=== PATIENT | male | born 1945 | race Hispanic/Latino ===

== ENCOUNTER 2018-08-22 16:41 | Emergency (ER) | payer MEDICARE, OTHER ==
[2018-08-22 16:49] VITALS: TEMP 98.1; O2SAT 99
[2018-08-22] MEDS ORDERED: Tdap Vaccine 0.5 ml Vial (10-64 yrs) IM ONE (17:20)
--- NOTE | 2018-08-22 17:52 | CT ---
Date of service: 08/22/2018 PROCEDURE: CT HEAD WITHOUT CONTRAST. HISTORY: trauma COMPARISON: None available. TECHNIQUE: Axial computed tomography images were obtained through the head/brain without intravenous contrast. Radiation dose: Total exam DLP = 840.81 mGy-cm. This CT exam was performed using one or more of the following dose reduction techniques: Automated exposure control, adjustment of the mA and/or kV according to patient size, and/or use of iterative reconstruction technique. FINDINGS: HEMORRHAGE: No intracranial hemorrhage. BRAIN: No mass effect or edema. There is ujva-ay-ruddyjru white matter changes likely represent chronic microvascular ischemic disease. VENTRICLES: Unremarkable. No hydrocephalus. CALVARIUM: Unremarkable. PARANASAL SINUSES: Mucosal thickening in the anterior aspect of left maxillary sinus is noted. Mucosal thickening of the left ethmoid sinuses is also noted. MASTOID AIR CELLS: Unremarkable as visualized. No inflammatory changes. OTHER FINDINGS: None. IMPRESSION: No evidence of acute intracranial hemorrhage intracranial collection territorial infarct mass effect or midline shift.
--- NOTE | 2018-08-22 18:15 | ED PDOC ---
HPI: Trauma/Fall - HPI Chief Complaint (Provider): Trauma History Per: Patient History/Exam Limitations: no limitations Onset/Duration Of Symptoms: Hrs Additional Complaint(s): Jeremiah Garcia is a 73 year old male with a past medical history of hypertension, COPD, and asthma who is presenting to the ED for evaluation of head injury onset around noon today. Patient states that he was walking outside in a park and tripped over a metal bar, falling to the left side and injuring the left side of his face. He reports that he did not lose consciousness and was able to get up on his own and walk back home. Patient admits that he did not think he needed medical attention until he looked in the mirror and noticed bruising. He denies any loss of consciousness, vomiting, chest pain, shortness of breath, abdominal pain, and extremity pain. PMD: Fei Matos <Jose Rafael Zacarias - Last Filed: 08/22/18 19:43> <Court Wyatt - Last Filed: 08/23/18 15:22> - HPI Time Seen by Provider: 08/22/18 16:59 Chief Complaint (Nursing): Trauma Past Medical History Reviewed: Historical Data, Nursing Documentation, Vital Signs Vital Signs: Last Vital Signs Temp 98.1 F 08/22/18 16:45 Pulse 115 H 08/22/18 16:45 Resp 18 08/22/18 16:45 BP 163/72 H 08/22/18 16:45 Pulse Ox 99 08/22/18 16:45 - Medical History PMH: Asthma, COPD, HTN - Surgical History Surgical History: No Surg Hx - Family History Family History: States: Unknown Family Hx - Social History Current smoker - smoking cessation education provided: No Alcohol: None Drugs: Denies <Jose Rafael Zacarias - Last Filed: 08/22/18 19:43> Vital Signs: Last Vital Signs Temp 98.1 F 08/22/18 16:45 Pulse 62 08/22/18 20:15 Resp 16 08/22/18 20:15 BP 131/59 L 08/22/18 20:15 Pulse Ox 99 08/22/18 20:15 <Court Wyatt - Last Filed: 08/23/18 15:22> - Home Medications Home Medications: Ambulatory Orders Medication Instructions Recorded Amoxicillin/Clavulanate [Augmentin 1 tab PO BID #20 tab 08/22/18 500 MG-125 MG] Sodium Chloride [Saline Nasal Mist] 2 - 4 spray NS Q1 PRN #1 bottle 08/22/18 - Allergies Allergies/Adverse Reactions: Allergies Allergy/AdvReac Type Severity Reaction Status Date / Time No Known Allergies Allergy Verified 08/22/18 16:45 Review of Systems ROS Statement: Except As Marked, All Systems Reviewed And Found Negative Constitutional: Positive for: Other (facial bruising ) Cardiovascular: Negative for: Chest Pain Respiratory: Negative for: Shortness of Breath Gastrointestinal: Negative for: Nausea, Vomiting, Abdominal Pain Musculoskeletal: Negative for: Other (extremity pain) <Jose Rafael Zacarias - Last Filed: 08/22/18 19:43> Physical Exam - Reviewed Nursing Documentation Reviewed: Yes Vital Signs Reviewed: Yes - Physical Exam Appears: Positive for: Non-toxic, No Acute Distress Head Exam: Positive for: NORMAL INSPECTION, NORMOCEPHALIC Skin: Positive for: Warm, Dry Eye Exam: Positive for: EOMI (including upward gaze), PERRL, Periorbital swelling (LEFT: moderate), Periorbital tenderness (LEFT: ecchymosis), Other (Superficial abrasion to left upper eyelid and eyebrow, No hyphema; no lacerat ions noted to face) ENT: Positive for: TM Is/Are (no hemotympanum b/l), Other (tenderness and swelling to nasal bridge; no septal hematoma b/l). Negative for: Pharyngeal Erythema, Tonsillar Exudate, Tonsillar Swelling Neck: Positive for: Painless ROM (ecchymosis to anterior neck, no tenderness), Supple Cardiovascular/Chest: Positive for: Regular Rate, Rhythm, Chest Non Tender. Negative for: Murmur Respiratory: Positive for: Normal Breath Sounds. Negative for: Respiratory Distress Pulses-Radial (L): 2+ Pulses-Radial (R): 2+ Gastrointestinal/Abdominal: Positive for: Normal Exam, Soft. Negative for: Tenderness, Other (ecchymosis to abdomen ) Back: Positive for: Normal Inspection. Negative for: L CVA Tenderness, R CVA Tenderness, Vertebral Tenderness (including C-Spine) Extremity: Positive for: Capillary Refill (< 2 seconds), Other (L elbow with mild tenderness and ecchymosis; R wrist with mild tenderness without swelling or deformity; no break in skin integrity; FROM actively of R wrist and L elbow but with pain) Neurologic/Psych: Positive for: Alert, Oriented (x3), Gait (steady). Negative for: Motor/Sensory Deficits, Aphasia <Jose Rafael Zacarias - Last Filed: 08/22/18 19:43> - Laboratory Results Result Diagrams: 08/22/18 18:00 08/22/18 18:00 - ECG O2 Sat by Pulse Oximetry: 99 (RA) Pulse Ox Interpretation: Normal - Radiology X-Ray: Interpreted by Me (R wrist, L elbow x-ray) X-Ray Interpretation: No Acute Disease - Progress ED Course And Treament: CT head w/o contrast: negative CT maxillofacial w/o contrast: comminuted displaced fx involving both nasal bones; diffuse facial swelling, b/l ethmoid, maxillary, and frontal sinusitis CT soft tissue neck including c-spine w/o contrast: severe multilevel degenerative spondylosis without acute osseous abnormality 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 Wyatt who recommends Augmentin and nasal spray. Pt. informed of results and advised to f/u with Dr. Dillard ENT for further evaluation. Also instructed to apply bacitracin ointment to wounds on face BID. Wound care instructions given. <Jose Rafael Zacarias E - Last Filed: 08/22/18 19:43> - Laboratory Results Result Diagrams: 08/22/18 18:00 08/22/18 18:00 <Court Wyatt - Last Filed: 08/23/18 15:22> Medical Decision Making Medical Decision Making: Time: 17:16 Impression: Head Injury Plan: --Blood Type and Screen --CT Head --CT Maxillofacial --CT Neck --CMP --CBC --Coags --Chest X-Ray --Adacel 0.5 ml IM --Wounds cleansed and irrigated then bacitracin ointment applied to abrasions on face Scribe Attestation: Documented by, Alison Cartagena acting as a scribe for Jose Rafael Zacarias PA-C. Provider Scribe Attestation: All medical record entries made by the Scribe were at my direction and personally dictated by me. I have reviewed the chart and agree that the record accurately reflects my personal performance of the history, physical exam, medical decision making, and the department course for this patient. I have also personally directed, reviewed, and agree with the discharge instructions and disposition. <Jose Rafael Zacarias - Last Filed: 08/22/18 19:43> Disposition - Patient ED Disposition Is Patient to be Admitted: No - Disposition Disposition: Routine/Home Disposition Time: 19:47 <Jose Rafael Zacarias - Last Filed: 08/22/18 19:43> <Court Wyatt - Last Filed: 08/23/18 15:22> - Clinical Impression Clinical Impression: Nasal fracture, Wrist injury, Elbow injury, Multiple abrasions - Disposition Referrals: Jersey Dillard MD [Staff Provider] - Fei Matos MD [Staff Provider] - Condition: STABLE Additional Instructions: FOLLOW UP WITH ENT FOR FURTHER EVALUATION RETURN TO ED IMMEDIATELY IF SYMPTOMS WORSEN JEREMIAH GARCIA, thank you for letting us take care of you today. Your provider was Court Wyatt MD and you were treated for HEAD INJURY. The emergency medical care you received today was directed at your acute symptoms. If you were prescribed any medication, please fill it and take as directed. It may take several days for your symptoms to resolve. Return to the Emergency Department if your symptoms worsen, do not improve, or if you have any other problems. Please contact your doctor or call one of the physicians/clinics you have been referred to that are listed on the Patient Visit Information form that is included in your discharge packet. Bring any paperwork you were given at discharge with you along with any medications you are taking to your follow up visit. Our treatment cannot replace ongoing medical care by a primary care provider outside of the emergency department. Thank you for allowing the [facility] team to be part of your care today. If you had an X-Ray or CT scan: A Radiologist will review the ED reading if any change in treatment is needed we will contact you. If you had a blood, urine, or wound culture: It will take several days for the results, if any change in treatment is needed we will contact you. If you had an STI test: It will take 48 hours for the results. Please call after 1 week if you have not heard back. Prescriptions: Amoxicillin/Clavulanate [Augmentin 500 MG-125 MG] 1 tab PO BID #20 tab Sodium Chloride [Saline Nasal Mist] 2 - 4 spray NS Q1 PRN #1 bottle PRN Reason: Nasal Congestion Instructions: Wrist Sprain (DC), Nose Fracture (DC), Elbow Sprain (DC) Forms: [employer] (Chinese) Print Language: HEBREW Addendum Addendum: 08/23/18 15:22 Reviewed chart and agree with PA assessment and plan. <Court Wyatt - Last Filed: 08/23/18 15:22>
[2018-08-22 18:16] LABS: BASO # 0.1 K/uL (0.0-0.2); EOS # 0.1 K/uL (0.0-0.7); EOS % 0.8 % (0.0-4.0); HEMOGLOBIN 13.4 g/dL (12.0-18.0); LYMPH % 9.4 % (20.0-40.0); MEAN CELL VOLUME 97.4 fl (80.0-94.0); MEAN CORPUSCULAR HEMOGLOBIN 33.2 pg (27.0-31.0); MEAN CORPUSCULAR HGB CONC 34.1 g/dL (33.0-37.0); MEAN PLATELET VOLUME 7.7 fl (7.2-11.7); MONO # 0.7 K/uL (0.0-0.8); MONO % 6.7 % (0.0-10.0); NEUT # 8.9 K/uL (1.8-7.0); NEUT % 82.1 % (50.0-75.0); NRBC % 0.1 % (0.0-0.0); PLATELET COUNT 177 K/uL (130-400); RBC 4.04 Mil/uL (4.40-5.90); RED CELL DISTRIBUTION WIDTH 12.9 % (11.5-14.5); WHITE BLOOD COUNT 10.8 K/uL (4.8-10.8)
[2018-08-22 18:21] LABS: PROTHROMBIN TIME 11.3 Seconds (9.8-13.1)
[2018-08-22 18:23] LABS: PARTIAL THROMBOPLASTIN TIME 33.3 Seconds (25.6-37.1)
[2018-08-22 18:25] LABS: ALB/GLOB RATIO 1.3 (1.0-2.1); ALBUMIN 4.4 g/dL (3.5-5.0); ALT/SGPT 40 U/L (21-72); AST/SGOT 41 U/L (17-59); BLOOD UREA NITROGEN 15 mg/dl (9-20); CALCIUM 9.8 mg/dL (8.4-10.2); GFR NON-AFRICAN AMERICAN > 60
[2018-08-22 19:08] LABS: EOSINOPHIL 3 % (0-7); LYMPHOCYTE 5 % (20-50); MONOCYTE 8 % (0-10); NEUTROPHIL 84 % (42-75); PLATELET ESTIMATE NORMAL (NORMAL); TOTAL CELLS COUNTED 100
[2018-08-22] MEDS ORDERED: Bacitracin OINT 15GM TOP STA (19:49)
[2018-08-22 20:58] VITALS: BP 131/59; PULSE 62; RESP 16
--- NOTE | 2018-08-23 12:40 | CT ---
Date of service: 08/22/2018 PROCEDURE: CT MAXILLOFACIAL BONES WITHOUT CONTRAST HISTORY: trauma COMPARISON: No prior similar study available for comparison TECHNIQUE: Contiguous axial CT images of the maxillofacial bones were obtained. Coronal and sagittal reformats were generated. Radiation dose: Total exam DLP = 1032.27 1032.3 mGy-cm. This CT exam was performed using one or more of the following dose reduction techniques: Automated exposure control, adjustment of the mA and/or kV according to patient size, and/or use of iterative reconstruction technique. FINDINGS: NASAL BONES: There are mildly displaced nasal bone fractures including slightly displaced fracture at the nasal process of the left maxillary bone. ORBITS: There is age indeterminate displaced left orbital floor fracture may represent acute fracture. There is a adjacent swelling and displacement of the left orbital inferior rectal muscle. There is also adjacent the mucosal thickening and possible small hematoma. Mild fat stranding noted in the left retrobulbar lower region without evidence of discrete hematoma. The right orbit is unremarkable. Fxsu-na-gkzhlrgv left periorbital soft tissue swelling. PARANASAL SINUSES/ MASTOIDS: Left maxillary mucosal thickening and mucosal retention cysts noted. Ethmoidal mucosal thickening is also noted. MAXILLA: There are multiple lucency seen in the maxillary bone likely represent periodontal lucency or abscesses. No evidence of acute displaced fractures. MANDIBLE/ TEMPOROMANDIBULAR JOINTS: No evidence of acute displaced fractures SKULL BASE: Unremarkable. TEMPORAL BONES: Middle ears and mastoid grossly unremarkable. OTHER FINDINGS: None. IMPRESSION: Bilateral mildly displaced nasal bone fractures. Age indeterminate could be acute or subacute displaced fracture of the left orbital floor. Left orbital inferior rectal muscle swelling and adjacent fat stranding and mucosal thickening in the anterior aspect of the left maxillary sinus. Please correlate clinically. [id number] left periorbital soft tissue posttraumatic changes. Fkpu-pg-jmxvinwg sinuses mucosal thickening. Preliminary report with concordance findings was submitted by [facility] at 7 p.m. on 08/22/2018
--- NOTE | 2018-08-23 14:14 | CT ---
Date of service: 08/22/2018 PROCEDURE: CT NECK WITHOUT CONTRAST HISTORY: trauma COMPARISON: None available. TECHNIQUE: CT of the neck without intravenous contrast. Coronal and sagittal reformats generated. Radiation dose: DLP 291.9 mGy-cm This CT exam was performed using one or more of the following dose reduction techniques: Automated exposure control, adjustment of the mA and/or kV according to patient size, and/or use of iterative reconstruction technique. FINDINGS: NASOPHARYNX: No evidence of mass or fluid collection SUPRAHYOID NECK: No evidence of mass or fluid collection in the oropharynx, oral cavity, parapharyngeal space and retropharyngeal space. INFRAHYOID NECK: Unremarkable larynx, hypopharynx, and supraglottic space. Vocal cords intact. MASS: None. GLANDS: Parotid and submandibular glands unremarkable. Normal size thyroid gland, without nodule. LYMPH NODES: Normal. No lymphadenopathy. CERVICAL SPINE: There are moderate to mildly severe degenerative changes in the cervical spine. Mildly displaced fracture in the left orbital floor. Mildly displaced fractures in the nasal bone. OTHER FINDINGS: None. IMPRESSION: No evidence of hematoma or fluid collection in the neck. Moderate to mildly severe degenerative changes in the cervical spine without evidence of acute displaced fracture. Acute displaced fracture in the nasal bones and in the left orbital floor. Preliminary report contains concordance findings was submitted by [facility] at 7:02 p.m. on 08/22/2018.
--- NOTE | 2018-08-23 16:14 | RAD ---
Date of service: 08/22/2018 HISTORY: fall COMPARISON: Comparison is made with 12/01/2009 FINDINGS: LUNGS: No evidence of new infiltrate or consolidation in the lungs. PLEURA: No significant pleural effusion identified, no pneumothorax apparent. CARDIOVASCULAR: Normal. OSSEOUS STRUCTURES: No significant abnormalities. VISUALIZED UPPER ABDOMEN: Normal. OTHER FINDINGS: None. IMPRESSION: No active disease.
--- NOTE | 2018-08-23 16:18 | RAD ---
Date of service: 08/22/2018 PROCEDURE: Right Wrist Radiographs. HISTORY: trauma COMPARISON: None. FINDINGS: BONES: No evidence of acute displaced fracture. JOINTS: Moderate osteoarthritic degenerative changes noted.. No dislocation. SOFT TISSUES: Mild diffuse soft tissue swelling. OTHER FINDINGS: None. IMPRESSION: No definite evidence of acute fracture or dislocation. If clinically warranted further assessment by CT may be obtained.
--- NOTE | 2018-08-23 16:22 | RAD ---
Date of service: 08/22/2018 PROCEDURE: Radiographs of the left elbow. HISTORY: trauma COMPARISON: No prior. FINDINGS: BONES: Suspicious for left radial head fracture. JOINTS: Mild osteoarthritic changes. SOFT TISSUES: Normal. JOINT EFFUSION: There is hcyq-jf-curwgoab joint effusion. OTHER FINDINGS: None IMPRESSION: Suspicious for acute left radial head fracture associated with joint effusion. If clinically warranted further assessment by CT may be obtained.
== END 2018-08-22 20:15 | disposition home or self-care (01) ==
LOC: H.ER 16:41
DX: S02.2XXA Fracture of nasal bones, initial encounter for closed fracture (principal); S00.81XA Abrasion of other part of head, initial encounter; S69.90XA Unspecified injury of unspecified wrist, hand and finger(s), initial encounter; I10 Essential (primary) hypertension; J44.9 Chronic obstructive pulmonary disease, unspecified; J45.909 Unspecified asthma, uncomplicated; Z79.899 Other long term (current) drug therapy; W01.0XXA Fall on same level from slipping, tripping and stumbling without subsequent striking against object, initial encounter; Y93.01 Activity, walking, marching and hiking; Z23 Encounter for immunization

== ENCOUNTER 2019-02-15 11:31 | Inpatient (IN) | payer MEDICARE, OTHER ==
--- NOTE | 2019-02-15 12:48 | RAD ---
Date of service: 02/15/2019 PROCEDURE: CHEST RADIOGRAPH, 1 VIEW HISTORY: Cough COMPARISON: 08/22/2018. FINDINGS: LUNGS: The lungs are well inflated. There is confluent airspace disease in the right lower lobe and patchy airspace disease in the left lung. PLEURA: No pneumothorax or pleural effusion. CARDIOVASCULAR: The heart is normal in size. There are aortic atherosclerotic calcifications present. OSSEOUS STRUCTURES: Within normal limits for the patient's age. VISUALIZED UPPER ABDOMEN: Normal. OTHER FINDINGS: None. IMPRESSION: Findings are concerning for multifocal pneumonia, worse in the right lower lobe. Follow-up after medical management is recommended to ensure complete resolution. The final report is tagged to the PA review folder.
[2019-02-15] MEDS ORDERED: Albuterol-Ipratrop 3 mg / 0.5 (3 ml) UD INH STA (12:53)
--- NOTE | 2019-02-15 12:56 | ED PDOC ---
HPI: SOB/CHF/COPD Time Seen by Provider: 02/15/19 11:48 Chief Complaint (Nursing): Shortness Of Breath Chief Complaint (Provider): Shortness Of Breath History Per: Patient History/Exam Limitations: no limitations Onset/Duration Of Symptoms: Days (x 6) Current Symptoms Are (Timing): Still Present Associated Symptoms: Productive Cough (green sputum). denies: Fever, Chest Pain Additional Complaint(s): 73 year old male with a history of HTN and COPD (not on O2 at home) presents to the ED for evaluation of a productive cough with green sputum for 6 days. Patient reports using Mucinex at home with no relief of symptoms. He denies fever and chest pain. PMD: Dr. Matos Past Medical History Reviewed: Historical Data, Nursing Documentation, Vital Signs Vital Signs: Last Vital Signs Temp 98.9 F 02/15/19 11:43 Pulse 103 H 02/15/19 11:43 Resp 18 02/15/19 11:43 BP 144/58 L 02/15/19 11:43 Pulse Ox 100 02/15/19 11:43 - Medical History PMH: Asthma, COPD, HTN - Surgical History Surgical History: No Surg Hx - Family History Family History: States: Unknown Family Hx - Social History Ex-Smoker (has not smoked in the last 12 months): Yes Alcohol: None - Home Medications Home Medications: Ambulatory Orders Medication Instructions Recorded Amoxicillin/Clavulanate [Augmentin 1 tab PO BID #20 tab 08/22/18 500 MG-125 MG] Sodium Chloride [Saline Nasal Mist] 2 - 4 spray NS Q1 PRN #1 bottle 08/22/18 - Allergies Allergies/Adverse Reactions: Allergies Allergy/AdvReac Type Severity Reaction Status Date / Time No Known Allergies Allergy Verified 08/22/18 16:45 Review of Systems ROS Statement: Except As Marked, All Systems Reviewed And Found Negative Constitutional: Negative for: Fever, Chills Cardiovascular: Negative for: Chest Pain Physical Exam - Reviewed Nursing Documentation Reviewed: Yes Vital Signs Reviewed: Yes - Physical Exam Appears: Positive for: No Acute Distress (speaking full sentences) Head Exam: Positive for: ATRAUMATIC, NORMAL INSPECTION, NORMOCEPHALIC Skin: Positive for: Normal Color, Warm, Dry Eye Exam: Positive for: EOMI, Normal appearance, PERRL Neck: Positive for: Normal, Painless ROM Cardiovascular/Chest: Positive for: Regular Rate, Rhythm. Negative for: Murmur Respiratory: Positive for: Decreased Breath Sounds Gastrointestinal/Abdominal: Positive for: Normal Exam, Soft. Negative for: Tenderness Back: Positive for: Normal Inspection. Negative for: L CVA Tenderness, R CVA Tenderness Extremity: Positive for: Normal ROM (x 4). Negative for: Deformity Neurological/Psych: Positive for: Awake, Alert, Normal Tone, Oriented (x 3). Negative for: Motor/Sensory Deficits - Laboratory Results Result Diagrams: 02/15/19 13:15 02/15/19 13:15 - ECG O2 Sat by Pulse Oximetry: 85 (4L) Pulse Ox Interpretation: Abnormal - Critical Care Total Time (In Min): 45 Documented Critical Care: Time excludes all time spent performint seperately billable procedures Medical Decision Making Medical Decision Makin:10 Impression: dsypnea and cough Initial Plan: --VBG --EKG --CMP --PTT --PT --CXR --Duoneb 3 ml INH --Solu-medrol 125 mg IVP --Blood cx --Peak flow pre/post --Influenza AB --UA Patient is 85% on 4 liters of oxygen. Vapotherm ordered. Accession No. : [id number] Patient Name / ID : RADHA DANIELS / [id number] Exam Date : 02/15/2019 11:57:43 ( Approved ) Study Comment : Sex / Age : M / 73Y Creator : Dictator : Ellie Whitten MD Buggyman : Business Team Leader : Ellie Whitten MD Approver2 : Report Date : My Comment : * Date of service: 02/15/2019 PROCEDURE: CHEST RADIOGRAPH, 1 VIEW HISTORY: Cough COMPARISON: 08/22/2018. FINDINGS: LUNGS: The lungs are well inflated. There is confluent airspace disease in the right lower lobe and patchy airspace disease in the left lung. PLEURA: No pneumothorax or pleural effusion. CARDIOVASCULAR: The heart is normal in size. There are aortic atherosclerotic calcifications present. OSSEOUS STRUCTURES: Within normal limits for the patient's age. VISUALIZED UPPER ABDOMEN: Normal. OTHER FINDINGS: None. IMPRESSION: Findings are concerning for multifocal pneumonia, worse in the right lower lobe. Follow-up after medical management is recommended to ensure complete resolution. 13:[address] Matos, admit to Hospitalist. Case discussed with Dr. Leon. - Scribe Attestation: Documented by Honey Melissa, acting as a scribe for Maddie Morris MD Provider Scribe Attestation: All medical record entries made by the Scribe were at my direction and personal ly dictated by me. I have reviewed the chart and agree that the record accurately reflects my personal performance of the history, physical exam, medical decision making, and the department course for this patient. I have also personally directed, reviewed, and agree with the discharge instructions and disposition Disposition - Clinical Impression Clinical Impression: Multifocal pneumonia, Sepsis, COPD (chronic obstructive pulmonary disease) - Disposition Disposition Time: 14:00 Condition: STABLE Forms: [employer] (Mongolian) - Pt Status Changed To: Hospital Disposition Of: Inpatient - Admit Certification Admit to Inpatient:: After my assessment, the patient will require hospitalization for at least two midnights. This is because of the severity of symptoms shown, intensity of services needed, and/or the medical risk in this patient being treated as an outpatient. - POA Present On Arrival: None
[2019-02-15] MEDS ORDERED: Azithromycin 500 MG in Sodium Chloride 0.9% 250 ML IV STA (13:23)
[2019-02-15] MEDS ORDERED: Albuterol-Ipratrop 3 mg / 0.5 (3 ml) UD ONE (13:25)
[2019-02-15 13:26] LABS: BASO # 0.1 K/uL (0.0-0.2); BASO % 0.3 % (0.0-2.0); HEMOGLOBIN 12.7 g/dL (12.0-18.0); PLATELET COUNT 322 K/uL (130-400); WHITE BLOOD COUNT 18.3 K/uL (4.8-10.8)
[2019-02-15] MEDS ORDERED: Azithromycin 500 MG IV IVPB ONE (13:32)
[2019-02-15 13:33] LABS: VENOUS BLOOD GAS BASE EXCESS 11.4 mmol/L (0.0-2.0); VENOUS BLOOD GAS PCO2 59 mmHg (40-60); VENOUS BLOOD GAS PO2 23 mm/Hg (30-55); VENOUS BLOOD PH 7.42 (7.32-7.43)
[2019-02-15 13:37] LABS: LYMPH % 5.4 % (20.0-40.0); MEAN CELL VOLUME 97.4 fl (80.0-94.0); MEAN CORPUSCULAR HEMOGLOBIN 32.9 pg (27.0-31.0); MEAN CORPUSCULAR HGB CONC 33.8 g/dL (33.0-37.0); MEAN PLATELET VOLUME 8.6 fl (7.2-11.7); MONO % 5.6 % (0.0-10.0); NEUT # 16.2 K/uL (1.8-7.0); NEUT % 88.7 % (50.0-75.0); NRBC % 0.1 % (0.0-0.0); RBC 3.86 Mil/uL (4.40-5.90); RED CELL DISTRIBUTION WIDTH 13.4 % (11.5-14.5)
[2019-02-15 13:38] LABS: ALBUMIN 3.9 g/dL (3.5-5.0); ALT/SGPT 57 U/L (21-72); AST/SGOT 58 U/L (17-59); BLOOD UREA NITROGEN 32 mg/dl (9-20); CALCIUM 9.5 mg/dL (8.4-10.2); GFR NON-AFRICAN AMERICAN > 60
--- NOTE | 2019-02-15 14:32 | CP.PCM.HP ---
<Mattie Chen - Last Filed: 02/15/19 16:47> History of Present Illness - History of Present Illness History of Present Illness: 73 y/o M with medhx of COPD & HTN presented to the ED complaining of increased sputum production x 7 days. Patient endorses producing a cup full of sputum honorio y, greenish in color. He tried mucinex which did not alleviate his symptoms. He reports sob has not increased above his baseline. He denied any f/c/cp, increased sob, hemoptysis, recent travel or sick contacts. PMD: Dr. 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 Famhx: denies SOchx; x-smoker (last use, 15 years ago ED course: P-103, BP-144/58, RR-26, spo2-86 on 4L of oxyg via NC, pt switched to High flow with FIo2 of 60% -wbc- unremarkable CXR- multifocal pneumona, worse in right lower lobe; Present on Admission - Present on Admission Any Indicators Present on Admission: No Past Patient History - Past Social History Alcohol: None - CARDIAC Hx Hypertension: Yes - PULMONARY Hx Asthma: Yes Hx Chronic Obstructive Pulmonary Disease (COPD): Yes - PSYCHIATRIC Hx Substance Use: No Meds Allergies/Adverse Reactions: Allergies Allergy/AdvReac Type Severity Reaction Status Date / Time No Known Allergies Allergy Verified 08/22/18 16:45 Physical Exam - Head Exam Head Exam: ATRAUMATIC - Eye Exam Eye Exam: EOMI - ENT Exam ENT Exam: Mucous Membranes Moist - Respiratory Exam Respiratory Exam: Decreased Breath Sounds Additional comments: patient on high flow with FIO2 of 60%; decreased breath sounds b/l with right lower crackle - Cardiovascular Exam Cardiovascular Exam: REGULAR RHYTHM, +S1, +S2 - GI/Abdominal Exam GI & Abdominal Exam: Normal Bowel Sounds, Soft. absent: Guarding, Rigid, Tenderness - Extremities Exam Extremities exam: Negative for: calf tenderness - Neurological Exam Neurological exam: Alert, Oriented x3 - Psychiatric Exam Psychiatric exam: Normal Mood - Skin Skin Exam: Dry, Intact Results - Vital Signs Recent Vital Signs: Last Vital Signs Temp 98.9 F 02/15/19 11:43 Pulse 103 H 02/15/19 11:43 Resp 20 02/15/19 13:29 BP 144/58 L 02/15/19 11:43 Pulse Ox 85 L 02/15/19 14:32 - Labs Result Diagrams: 02/15/19 13:15 02/15/19 13:15 Labs: Laboratory Results - last 24 hr 02/15/19 02/15/19 02/15/19 12:06 13:15 13:15 WBC 18.3 H D RBC 3.86 L Hgb 12.7 Hct 37.6 MCV 97.4 H MCH 32.9 H MCHC 33.8 RDW 13.4 Plt Count 322 D MPV 8.6 Neut % (Auto) 88.7 H Lymph % (Auto) 5.4 L Roberts % (Auto) 5.6 Eos % (Auto) 0.0 Baso % (Auto) 0.3 Neut # (Auto) 16.2 H Lymph # (Auto) 1.0 Roberts # (Auto) 1.0 H Eos # (Auto) 0.0 Baso # (Auto) 0.1 pO2 VBG pH VBG pCO2 VBG HCO3 VBG Total CO2 VBG O2 Sat (Calc) VBG Base Excess VBG Potassium Glucose Lactate FiO2 Sodium 137 Potassium 3.4 L Chloride 93 L Carbon Dioxide 32 H Anion Gap 15 BUN 32 H Creatinine 1.0 Est GFR ( Amer) > 60 Est GFR (Non-Af Amer) > 60 POC Glucose (mg/dL) 218 H Random Glucose 174 H Calcium 9.5 Total Bilirubin 1.1 AST 58 ALT 57 Alkaline Phosphatase 153 H D Total Protein 7.7 Albumin 3.9 Globulin 3.7 Albumin/Globulin Ratio 1.0 Venous Blood Potassium Influenza Typ A,B (EIA) 02/15/19 02/15/19 13:15 13:25 WBC RBC Hgb Hct MCV MCH MCHC RDW Plt Count MPV Neut % (Auto) Lymph % (Auto) Roberts % (Auto) Eos % (Auto) Baso % (Auto) Neut # (Auto) Lymph # (Auto) Roberts # (Auto) Eos # (Auto) Baso # (Auto) pO2 23 L VBG pH 7.42 VBG pCO2 59 VBG HCO3 32.3 VBG Total CO2 40.1 H VBG O2 Sat (Calc) 40.3 VBG Base Excess 11.4 H VBG Potassium 3.4 L Glucose 176 H Lactate 1.8 FiO2 21.0 Sodium 139.0 Potassium Chloride 98.0 Carbon Dioxide Anion Gap BUN Creatinine Est GFR ( Amer) Est GFR (Non-Af Amer) POC Glucose (mg/dL) Random Glucose Calcium Total Bilirubin AST ALT Alkaline Phosphatase Total Protein Albumin Globulin Albumin/Globulin Ratio Venous Blood Potassium 3.4 L Influenza Typ A,B (EIA) Negative for flu a/b Assessment & Plan - Assessment and Plan (Free Text) Assessment: 73 y/o M with medhx of COPD & HTN presented to the ED complaining of increased sputum production x 7 days, admitted for further management of multifocal pneunomina. Multifocal pneumonia s/p Stat dose of rocephin & azithro -C/w vanco & zosyn ( to start this evening) -monitor saturation & RR -FU vanco trough -FU blood cultures COPD (acute on chronic) -Dr. Matos consulted; FU recommendations -s/p STAT duoneb -C/w duoneb 3ml INH Q4 prn -C/w home meds HTN (chronic) -C/w home meds zestril & HCTZ DVT prophlaxis -Lovenox 40mg SC <Zaki Leon D - Last Filed: 02/15/19 17:11> Results - Vital Signs Recent Vital Signs: Last Vital Signs Temp 98.9 F 02/15/19 11:43 Pulse 103 H 02/15/19 11:43 Resp 20 02/15/19 13:29 BP 144/58 L 02/15/19 11:43 Pulse Ox 85 L 02/15/19 14:36 - Labs Result Diagrams: 02/15/19 13:15 02/15/19 13:15 Labs: Laboratory Results - last 24 hr 02/15/19 02/15/19 02/15/19 12:06 13:15 13:15 WBC 18.3 H D RBC 3.86 L Hgb 12.7 Hct 37.6 MCV 97.4 H MCH 32.9 H MCHC 33.8 RDW 13.4 Plt Count 322 D MPV 8.6 Neut % (Auto) 88.7 H Lymph % (Auto) 5.4 L Roberts % (Auto) 5.6 Eos % (Auto) 0.0 Baso % (Auto) 0.3 Neut # (Auto) 16.2 H Lymph # (Auto) 1.0 Roberts # (Auto) 1.0 H Eos # (Auto) 0.0 Baso # (Auto) 0.1 Neutrophils % (Manual) 85 H Band Neutrophils % 3 H Lymphocytes % (Manual) 6 L Monocytes % (Manual) 4 Eosinophils % (Manual) 2 Platelet Estimate Normal RBC Morphology Normal PT INR APTT pO2 VBG pH VBG pCO2 VBG HCO3 VBG Total CO2 VBG O2 Sat (Calc) VBG Base Excess VBG Potassium Glucose Lactate FiO2 Sodium 137 Potassium 3.4 L Chloride 93 L Carbon Dioxide 32 H Anion Gap 15 BUN 32 H Creatinine 1.0 Est GFR ( Amer) > 60 Est GFR (Non-Af Amer) > 60 POC Glucose (mg/dL) 218 H Random Glucose 174 H Calcium 9.5 Total Bilirubin 1.1 AST 58 ALT 57 Alkaline Phosphatase 153 H D Total Protein 7.7 Albumin 3.9 Globulin 3.7 Albumin/Globulin Ratio 1.0 Venous Blood Potassium Influenza Typ A,B (EIA) 02/15/19 02/15/19 02/15/19 13:15 13:25 13:45 WBC RBC Hgb Hct MCV MCH MCHC RDW Plt Count MPV Neut % (Auto) Lymph % (Auto) Roberts % (Auto) Eos % (Auto) Baso % (Auto) Neut # (Auto) Lymph # (Auto) Roberts # (Auto) Eos # (Auto) Baso # (Auto) Neutrophils % (Manual) Band Neutrophils % Lymphocytes % (Manual) Monocytes % (Manual) Eosinophils % (Manual) Platelet Estimate RBC Morphology PT 14.7 H INR 1.3 APTT 27.3 pO2 23 L VBG pH 7.42 VBG pCO2 59 VBG HCO3 32.3 VBG Total CO2 40.1 H VBG O2 Sat (Calc) 40.3 VBG Base Excess 11.4 H VBG Potassium 3.4 L Glucose 176 H Lactate 1.8 FiO2 21.0 Sodium 139.0 Potassium Chloride 98.0 Carbon Dioxide Anion Gap BUN Creatinine Est GFR ( Amer) Est GFR (Non-Af Amer) POC Glucose (mg/dL) Random Glucose Calcium Total Bilirubin AST ALT Alkaline Phosphatase Total Protein Albumin Globulin Albumin/Globulin Ratio Venous Blood Potassium 3.4 L Influenza Typ A,B (EIA) Negative for flu a/b Attending/Attestation - Attestation I have personally seen and examined this patient.: Yes I have fully participated in the care of the patient.: Yes I have reviewed all pertinent clinical information: Yes Notes (Text): 02/15/19 17:11 Patient seen and examined with resident. Case discussed and agreed with assessment and plan of management.
[2019-02-15 14:40] LABS: INR 1.3; PROTHROMBIN TIME 14.7 Seconds (9.8-13.1)
[2019-02-15 14:43] LABS: PARTIAL THROMBOPLASTIN TIME 27.3 Seconds (25.6-37.1)
[2019-02-15] MEDS ORDERED: Albuterol-Ipratrop 3 mg / 0.5 (3 ml) UD INH PRN (14:52)
--- NOTE | 2019-02-15 15:04 | CARD ---
APPROVED REPORT Date of service: 02/15/2019 EKG Measurement Heart [id number] <Conclusion> Normal sinus rhythm Inferior infarct, age undetermined Abnormal ECG
[2019-02-15] MEDS ORDERED: cefTRIAXone (Rocephin) 1 gm Inj ONE (15:32)
[2019-02-15 16:01] LABS: BANDS 3 % (0-2); EOSINOPHIL 2 % (0-7); LYMPHOCYTE 6 % (20-50); MONOCYTE 4 % (0-10); NEUTROPHIL 85 % (42-75); TOTAL CELLS COUNTED 100
[2019-02-15 16:02] LABS: PLATELET ESTIMATE NORMAL (NORMAL)
[2019-02-15] MEDS: Piperacillin/Tazobact 3.375 GM in Sodium Chloride 0.9% 100 ML IVPB SCH ×2 (16:59→23:15)
[2019-02-15] MEDS ORDERED: Potassium Chloride 20 mEq ER Tab PO ONE ×2 (17:56→19:31)
[2019-02-15 20:40] LABS: URINE BACTERIA FEW (<OCC); URINE BILIRUBIN NEGATIVE (NEGATIVE); URINE BLOOD NEGATIVE (NEGATIVE); URINE CLARITY CLEAR (Clear); URINE COLOR YELLOW (YELLOW); URINE GLUCOSE (UA) >=500 mg/dL (NEGATIVE); URINE LEUKOCYTE ESTERASE NEG Leu/uL (Negative); URINE PROTEIN NEGATIVE (NEGATIVE); URINE UROBILINOGEN 0.2-1.0 mg/dL (0.2-1.0)
[2019-02-15] MEDS ORDERED: FLUTICASONE PROPION IH SCH (21:00)
[2019-02-15] MEDS ORDERED: SALMETEROL IH SCH (21:00)
[2019-02-16] MEDS: Piperacillin/Tazobact 3.375 GM in Sodium Chloride 0.9% 100 ML IVPB SCH ×4 (03:36→22:31)
--- NOTE | 2019-02-16 07:45 | CP.PCM.PN ---
<Mattie Chen - Last Filed: 02/16/19 13:00> Subjective - Date & Time of Evaluation Date of Evaluation: 02/16/19 Time of Evaluation: 09:46 - Subjective Subjective: Patient was seen and examined this morning. Patient continues to be on high flower FIO2 60%, saturating at 90%. Patient was sitting upright in chair, breathing comfortably and able to talk in full sentences. Patient reports still coughing up some mucus, but states amount has decreased. Denies f/c/n/v/diarrhea/cp or sob. Objective - Vital Signs/Intake and Output Vital Signs (last 24 hours): Temp Pulse Resp BP Pulse Ox 98.7 F 86 18 109/50 L 90 L 02/16/19 07:40 02/16/19 07:40 02/16/19 07:40 02/16/19 07:40 02/16/19 07:40 - Medications Medications: Current Medications Albuterol/Ipratropium (Duoneb 3 Mg/0.5 Mg (3 Ml) Ud) 3 ml INH RQ4 PRN PRN Reason: Shortness of Breath Albuterol/Ipratropium (Duoneb 3 Mg/0.5 Mg (3 Ml) Ud) 3 ml INH RQID [facility] Diltiazem HCl (Cardizem Cd) 180 mg PO DAILY [facility] Docusate Sodium (Colace) 100 mg PO BID PRN PRN Reason: Constipation Enoxaparin Sodium (Lovenox) 40 mg SC DAILY [facility]; Protocol Fluticasone Propionate (Flonase) 2 spr [place] DAILY [facility] Hydrochlorothiazide (Microzide) 12.5 mg PO DAILY [facility] Vancomycin HCl 1 gm/ Sodium (Chloride) 250 mls @ 166.667 mls/hr IVPB Q12 [facility]; Protocol Last Admin: 02/15/19 23:16 Dose: 166.667 mls/hr Piperacillin Sod/Tazobactam (Sod 3.375 gm/ Sodium Chloride) 100 mls @ 100 mls/hr IVPB Q6 [facility]; Protocol Last Admin: 02/16/19 03:36 Dose: 100 mls/hr Lisinopril (Zestril) 20 mg PO DAILY [facility] Multivitamins/Minerals (Therapeutic-M Tab) 1 tab PO DAILY [facility] Pantoprazole Sodium (Protonix Ec Tab) 40 mg PO DAILY [facility] Tiotropium [place] (Spiriva) 18 mcg IH DAILY [facility] - Labs Labs: 02/15/19 13:15 02/15/19 13:15 PT 14.7 Seconds (9.8-13.1) H 02/15/19 13:45 INR 1.3 02/15/19 13:45 APTT 27.3 Seconds (25.6-37.1) 02/15/19 13:45 - Constitutional Appears: Non-toxic - Head Exam Head Exam: ATRAUMATIC - Eye Exam Eye Exam: EOMI - ENT Exam ENT Exam: Mucous Membranes Dry - Respiratory Exam Respiratory Exam: Rhonchi. absent: Respiratory Distress Additional comments: scattered rhonchi, no wheeze - Cardiovascular Exam Cardiovascular Exam: REGULAR RHYTHM, +S1, +S2 - GI/Abdominal Exam GI & Abdominal Exam: Soft, Normal Bowel Sounds. absent: Guarding, Rigid, Tenderness - Extremities Exam Extremities Exam: absent: Calf Tenderness - Neurological Exam Neurological Exam: Alert, Awake, Oriented x3 - Psychiatric Exam Psychiatric exam: Normal Mood - Skin Skin Exam: Dry, Intact Assessment and Plan - Assessment and Plan (Free Text) Assessment: 73 y/o M with medhx of COPD & HTN presented to the ED complaining of increased sputum production x 7 days, admitted for further management of severe sepsis due to multifocal pneunomina. Sepsis (criteria met on admission) -103 bpm, RR max- 26 BP_ 144/58 WBC- 18.3 lactate- 1.8 -source: CXR showed multifocal pneumonia s/p Stat dose of rocephin & azithro in ED -C/w vanco & zosyn ( to start this evening) -monitor saturation & RR -FU vanco trough -Awaiting blood cultures Acute hypoxic respiratory failure (likely due to multifocal pneumonia in setting of COPD -C/w high flow oxygen with FIo2 of 60% -FU abg on room air -FU legionella, mycoplasma, and strep pneumonia antigen -Dr. Matos consulted; FU recommendations COPD exacerbation (acute on chronic) -s/p STAT duoneb -C/w duoneb 3ml INH QID -C/w spiriva 18mcg IH QD HTN (chronic) -C/w home meds zestril -Hold HCTZ DVT prophylaxis -Lovenox 40mg SC <Leon,Zaki D - Last Filed: 02/16/19 14:35> Objective - Vital Signs/Intake and Output Vital Signs (last 24 hours): Temp Pulse Resp BP Pulse Ox 97.6 F 84 18 127/65 91 L 02/16/19 12:00 02/16/19 12:00 02/16/19 12:00 02/16/19 12:00 02/16/19 12:00 - Medications Medications: Current Medications Albuterol Sulfate (Albuterol 0.083% Inhal Svitlana (2.5 Mg/3 Ml) Ud) 2.5 mg INH RQ4 PRN PRN Reason: Shortness of Breath Albuterol/Ipratropium (Duoneb 3 Mg/0.5 Mg (3 Ml) Ud) 3 ml INH RQID [facility]NA Diltiazem HCl (Cardizem Cd) 180 mg PO DAILY [facility] Last Admin: 02/16/19 10:34 Dose: 180 mg Docusate Sodium (Colace) 100 mg PO BID PRN PRN Reason: Constipation Enoxaparin Sodium (Lovenox) 40 mg SC DAILY [facility]; Protocol Last Admin: 02/16/19 10:32 Dose: 40 mg Fluticasone Propionate (Flonase) 2 spr [place] DAILY [facility] Last Admin: 02/16/19 08:15 Dose: 2 spr Hydrochlorothiazide (Microzide) 12.5 mg PO DAILY [facility] Last Admin: 02/16/19 10:32 Dose: 12.5 mg Vancomycin HCl 1 gm/ Sodium (Chloride) 250 mls @ 166.667 mls/hr IVPB Q12 [facility]; Protocol Last Admin: 02/16/19 14:19 Dose: 166.667 mls/hr Piperacillin Sod/Tazobactam (Sod 3.375 gm/ Sodium Chloride) 100 mls @ 100 mls/hr IVPB Q6 [facility]; Protocol Last Admin: 02/16/19 10:33 Dose: 100 mls/hr Lisinopril (Zestril) 20 mg PO DAILY [facility] Last Admin: 02/16/19 10:34 Dose: 20 mg Multivitamins/Minerals (Therapeutic-M Tab) 1 tab PO DAILY [facility] Last Admin: 02/16/19 10:33 Dose: 1 tab Pantoprazole Sodium (Protonix Ec Tab) 40 mg PO DAILY [facility] Last Admin: 02/16/19 10:34 Dose: 40 mg Tiotropium [place] (Spiriva) 18 mcg IH DAILY [facility] Last Admin: 02/16/19 14:21 Dose: 18 mcg - Labs Labs: 02/16/19 08:25 02/16/19 08:25 PT 14.7 Seconds (9.8-13.1) H 02/15/19 13:45 INR 1.3 02/15/19 13:45 APTT 27.3 Seconds (25.6-37.1) 02/15/19 13:45 Attending/Attestation - Attestation I have personally seen and examined this patient.: Yes I have fully participated in the care of the patient.: Yes I have reviewed all pertinent clinical information, including history, physical exam and plan: Yes Notes (Text): 02/16/19 14:34 Patient seen and examined with resident. Case discussed and agreed with as sessment and plan
[2019-02-16 08:14] LABS: ABG ALLEN TEST YES; ARTERIAL BLOOD GAS HCO3 34.1 mmol/L (21-28); ARTERIAL BLOOD GAS HEMOGLOBIN 12.6 g/dL (11.7-17.4); ARTERIAL BLOOD GAS O2 CONTENT 16.3 ML/dL (15-23); ARTERIAL BLOOD GAS O2 SAT 95.7 % (95-98); ARTERIAL BLOOD GAS PCO2 53 mm/Hg (35-45); ARTERIAL BLOOD GAS PH 7.46 (7.35-7.45); ARTERIAL BLOOD GAS PO2 64 mm/Hg (80-100); ARTERIAL BLOOD GAS TCO2 39.3 mmol/L (22-28)
[2019-02-16] MEDS ORDERED: Albuterol 0.083% Inhal Sol (2.5 mg/3 mL) UD INH PRN (09:27)
[2019-02-16 09:29] LABS: BLOOD UREA NITROGEN 29 mg/dl (9-20); CALCIUM 8.8 mg/dL (8.4-10.2); GFR NON-AFRICAN AMERICAN > 60
[2019-02-16 09:30] LABS: HEMOGLOBIN 12.2 g/dL (12.0-18.0); LYMPH % 3.3 % (20.0-40.0); MEAN CELL VOLUME 98.7 fl (80.0-94.0); MEAN CORPUSCULAR HEMOGLOBIN 32.4 pg (27.0-31.0); MEAN CORPUSCULAR HGB CONC 32.8 g/dL (33.0-37.0); MEAN PLATELET VOLUME 8.8 fl (7.2-11.7); MONO # 0.7 K/uL (0.0-0.8); MONO % 2.6 % (0.0-10.0); NEUT # 27.1 K/uL (1.8-7.0); NEUT % 94.1 % (50.0-75.0); PLATELET COUNT 343 K/uL (130-400); RBC 3.77 Mil/uL (4.40-5.90); RED CELL DISTRIBUTION WIDTH 13.3 % (11.5-14.5); WHITE BLOOD COUNT 28.8 K/uL (4.8-10.8)
--- NOTE | 2019-02-16 09:34 | CP.PCM.CON ---
History of Present Illness - History of Present Illness History of Present Illness: This 73 year old former cigarette smoker camr to the emergency room with a 6-7 days history of increased cough with copious grenn colored sputum production. He denied chest pain or hemoptysis and was unaware of fever. He did have chills at home. He had been taking all his regulr medications as directed without improvement. His sleep was disrupted by coughing. In the emergency room he was found to be hypoxemic requiring supplemental oxygen. His chest x-ray also suggested bilateral multifocal infiltrates with leukocytosis of 18.3, tachycardia, tachypnea but normotensive. Review of Systems - Review of Systems All systems: reviewed and no additional remarkable complaints except - Constitutional Constitutional: Chills, Fatigue - Respiratory Respiratory: Cough, Chest Congestion, Excessive Mucous Production, Change in Mucous Color Past Patient History - Past Medical History & Family History Past Family History: Reviewed and not pertinent - Past Social History Smoking Status: Former Smoker Chewing Tobacco Use: No Cigar Use: No Alcohol: Social Drugs: Denies Home Situation {Lives}: Alone - CARDIAC Hx Hypertension: Yes - PULMONARY Hx Bronchitis: Yes Hx Chronic Obstructive Pulmonary Disease (COPD): Yes Hx Pneumonia: Yes - NEUROLOGICAL Hx Neurological Disorder: No - HEENT Other/Comment: multiple dental caries - RENAL Hx Chronic Kidney Disease: No - ENDOCRINE/METABOLIC Hx Endocrine Disorders: No - HEMATOLOGICAL/ONCOLOGICAL Hx Blood Disorders: No - INTEGUMENTARY Hx Dermatological Problems: No - MUSCULOSKELETAL/RHEUMATOLOGICAL Hx Falls: Yes - GASTROINTESTINAL Hx Gastrointestinal Disorders: No - GENITOURINARY/GYNECOLOGICAL Hx Prostate Problems: Yes (LUTS) - PSYCHIATRIC Hx Psychophysiologic Disorder: No - SURGICAL HISTORY Hx Surgeries: No - ANESTHESIA Hx Anesthesia: No Meds Home Medications: Home Medication List Medication Instructions Recorded Confirmed Type Albuterol 0.083% [Albuterol 0.083% 2.5 mg INH RQ4 PRN neb 02/19/19 Rx Inhal Svitlana (2.5 mg/3 ml) UD] Albuterol/Ipratropium [Duoneb 3 3 ml INH RQID neb 02/19/19 Rx mg/0.5 mg (3 ml) UD] Docusate [Colace] 100 mg PO BID PRN cap 02/19/19 Rx Enoxaparin [Lovenox] 40 mg SC DAILY syr 02/19/19 Rx Fluticasone Propionate [Flonase] 2 spr BENJAMIN DAILY bottle 02/19/19 Rx Pantoprazole [Protonix EC Tab] 40 mg PO DAILY ect 02/19/19 Rx Piperacillin/Tazobact 3.375 gm 0 gm IV Q6 7 Days bag 02/19/19 Rx [Zosyn 3.375 in NS 100ml] Sodium Chloride for Inhalation 4 ml IH ONCE PRN vial.neb 02/19/19 Rx [Sodium Chloride 3% for Inhalation] Vancomycin/0.9 % Sod Chloride 1 gm IV BID 7 Days #14 plast..bag 02/19/19 Rx [Vanco 1 Gram/250 ml-0.9% NaCl] diltiaZEM CD [Cardizem CD] 240 mg PO DAILY cap 02/19/19 Rx methylPREDNISolone [Medrol] 12 mg PO DAILY tab 02/19/19 Rx Allergies/Adverse Reactions: Allergies Allergy/AdvReac Type Severity Reaction Status Date / Time No Known Allergies Allergy Verified 02/19/19 14:05 - Medications Medications: Current Medications Albuterol Sulfate (Albuterol 0.083% Inhal Svitlana (2.5 Mg/3 Ml) Ud) 2.5 mg INH RQ4 PRN PRN Reason: Shortness of Breath Albuterol/Ipratropium (Duoneb 3 Mg/0.5 Mg (3 Ml) Ud) 3 ml INH RQID [facility] Diltiazem HCl (Cardizem Cd) 180 mg PO DAILY [facility] Docusate Sodium (Colace) 100 mg PO BID PRN PRN Reason: Constipation Enoxaparin Sodium (Lovenox) 40 mg SC DAILY [facility]; Protocol Fluticasone Propionate (Flonase) 2 spr BENJAMIN DAILY [facility] Last Admin: 02/16/19 08:15 Dose: 2 spr Hydrochlorothiazide (Microzide) 12.5 mg PO DAILY [facility] Vancomycin HCl 1 gm/ Sodium (Chloride) 250 mls @ 166.667 mls/hr IVPB Q12 [facility]; Protocol Last Admin: 02/15/19 23:16 Dose: 166.667 mls/hr Piperacillin Sod/Tazobactam (Sod 3.375 gm/ Sodium Chloride) 100 mls @ 100 mls/hr IVPB Q6 [facility]; Protocol Last Admin: 02/16/19 03:36 Dose: 100 mls/hr Lisinopril (Zestril) 20 mg PO DAILY [facility] Multivitamins/Minerals (Therapeutic-M Tab) 1 tab PO DAILY [facility] Pantoprazole Sodium (Protonix Ec Tab) 40 mg PO DAILY [facility] Tiotropium [place] (Spiriva) 18 mcg IH DAILY [facility] Physical Exam - Additional Findings Additional findings: Poor dental hygiene with multiple caries and has been a chronic problem and is still present. Pharynx is mildly injected without exudate. Mucous membranes are moist. Nares are patent bilaterally without bleeding or exudate. Neck is supple and trachea is midline without any neck vein distention or carotid bruits. No palpable lymphadenopathy. No dependent edema or cyanosis. No calf tenderness or palpable venous cords. No ecchymosis, rash or jaundice. No dullness on chest percussion. Equal expansion. Breath sounds are diminished bilaterally without any wheezes. No bronchial breath sounds. Sonorous rhonchi are heard in the lower lobes bilaterally with scattered medium rales. Heart sounds are distant and regular without murmur. Abdomen is soft and nontender with normal bowel sounds and no palpable HSM or CVA tenderness. Results - Vital Signs Recent Vital Signs: Last Vital Signs Temp 98.7 F 02/16/19 07:40 Pulse 86 02/16/19 07:40 Resp 18 02/16/19 07:40 BP 109/50 L 02/16/19 07:40 Pulse Ox 90 L 02/16/19 07:40 - Labs Result Diagrams: 02/19/19 04:25 02/19/19 04:25 Labs: Laboratory Results - last 24 hr 02/15/19 02/15/19 02/15/19 12:06 13:15 13:15 WBC 18.3 H D RBC 3.86 L Hgb 12.7 Hct 37.6 MCV 97.4 H MCH 32.9 H MCHC 33.8 RDW 13.4 Plt Count 322 D MPV 8.6 Neut % (Auto) 88.7 H Lymph % (Auto) 5.4 L Cooper % (Auto) 5.6 Eos % (Auto) 0.0 Baso % (Auto) 0.3 Neut # (Auto) 16.2 H Lymph # (Auto) 1.0 Cooper # (Auto) 1.0 H Eos # (Auto) 0.0 Baso # (Auto) 0.1 Neutrophils % (Manual) 85 H Band Neutrophils % 3 H Lymphocytes % (Manual) 6 L Monocytes % (Manual) 4 Eosinophils % (Manual) 2 Platelet Estimate Normal RBC Morphology Normal PT INR APTT pCO2 pO2 HCO3 ABG pH ABG Total CO2 ABG O2 Saturation ABG O2 Content ABG Base Excess ABG Hemoglobin ABG Carboxyhemoglobin POC ABG HHb (Measured) ABG Methemoglobin ABG O2 Capacity Jonathan Test VBG pH VBG pCO2 VBG HCO3 VBG Total CO2 VBG O2 Sat (Calc) VBG Base Excess VBG Potassium A-a O2 Difference Hgb O2 Saturation Glucose Lactate Liter Flow Vent Mode FiO2 Sodium 137 Potassium 3.4 L Chloride 93 L Carbon Dioxide 32 H Anion Gap 15 BUN 32 H Creatinine 1.0 Est GFR ( Amer) > 60 Est GFR (Non-Af Amer) > 60 POC Glucose (mg/dL) 218 H Random Glucose 174 H Calcium 9.5 Total Bilirubin 1.1 AST 58 ALT 57 Alkaline Phosphatase 153 H D Total Protein 7.7 Albumin 3.9 Globulin 3.7 Albumin/Globulin Ratio 1.0 Venous Blood Potassium Urine Color Urine Clarity Urine pH Ur Specific [place] Urine Protein Urine Glucose (UA) Urine Ketones Urine Blood Urine Nitrate Urine Bilirubin Urine Urobilinogen Ur Leukocyte Esterase Urine RBC (Auto) Urine Microscopic WBC Urine Bacteria Influenza Typ A,B (EIA) 02/15/19 02/15/19 02/15/19 13:15 13:25 13:45 WBC RBC Hgb Hct MCV MCH MCHC RDW Plt Count MPV Neut % (Auto) Lymph % (Auto) Cooper % (Auto) Eos % (Auto) Baso % (Auto) Neut # (Auto) Lymph # (Auto) Cooper # (Auto) Eos # (Auto) Baso # (Auto) Neutrophils % (Manual) Band Neutrophils % Lymphocytes % (Manual) Monocytes % (Manual) Eosinophils % (Manual) Platelet Estimate RBC Morphology PT 14.7 H INR 1.3 APTT 27.3 pCO2 pO2 23 L HCO3 ABG pH ABG Total CO2 ABG O2 Saturation ABG O2 Content ABG Base Excess ABG Hemoglobin ABG Carboxyhemoglobin POC ABG HHb (Measured) ABG Methemoglobin ABG O2 Capacity Jonathan Test VBG pH 7.42 VBG pCO2 59 VBG HCO3 32.3 VBG Total CO2 40.1 H VBG O2 Sat (Calc) 40.3 VBG Base Excess 11.4 H VBG Potassium 3.4 L A-a O2 Difference Hgb O2 Saturation Glucose 176 H Lactate 1.8 Liter Flow Vent Mode FiO2 21.0 Sodium 139.0 Potassium Chloride 98.0 Carbon Dioxide Anion Gap BUN Creatinine Est GFR ( Amer) Est GFR (Non-Af Amer) POC Glucose (mg/dL) Random Glucose Calcium Total Bilirubin AST ALT Alkaline Phosphatase Total Protein Albumin Globulin Albumin/Globulin Ratio Venous Blood Potassium 3.4 L Urine Color Urine Clarity Urine pH Ur Specific [place] Urine Protein Urine Glucose (UA) Urine Ketones Urine Blood Urine Nitrate Urine Bilirubin Urine Urobilinogen Ur Leukocyte Esterase Urine RBC (Auto) Urine Microscopic WBC Urine Bacteria Influenza Typ A,B (EIA) Negative for flu a/b 02/15/19 02/15/19 02/16/19 19:40 22:06 05:23 WBC RBC Hgb Hct MCV MCH MCHC RDW Plt Count MPV Neut % (Auto) Lymph % (Auto) Cooper % (Auto) Eos % (Auto) Baso % (Auto) Neut # (Auto) Lymph # (Auto) Cooper # (Auto) Eos # (Auto) Baso # (Auto) Neutrophils % (Manual) Band Neutrophils % Lymphocytes % (Manual) Monocytes % (Manual) Eosinophils % (Manual) Platelet Estimate RBC Morphology PT INR APTT pCO2 pO2 HCO3 ABG pH ABG Total CO2 ABG O2 Saturation ABG O2 Content ABG Base Excess ABG Hemoglobin ABG Carboxyhemoglobin POC ABG HHb (Measured) ABG Methemoglobin ABG O2 Capacity Jonathan Test VBG pH VBG pCO2 VBG HCO3 VBG Total CO2 VBG O2 Sat (Calc) VBG Base Excess VBG Potassium A-a O2 Difference Hgb O2 Saturation Glucose Lactate Liter Flow Vent Mode FiO2 Sodium Potassium Chloride Carbon Dioxide Anion Gap BUN Creatinine Est GFR ( Amer) Est GFR (Non-Af Amer) POC Glucose (mg/dL) 262 H 234 H Random Glucose Calcium Total Bilirubin AST ALT Alkaline Phosphatase Total Protein Albumin Globulin Albumin/Globulin Ratio Venous Blood Potassium Urine Color Yellow Urine Clarity Clear Urine pH 5.0 Ur Specific [place] 1.041 H Urine Protein Negative Urine Glucose (UA) >=500 Urine Ketones Trace Urine Blood Negative Urine Nitrate Negative Urine Bilirubin Negative Urine Urobilinogen 0.2-1.0 Ur Leukocyte Esterase Neg Urine RBC (Auto) 3 Urine Microscopic WBC < 1 Urine Bacteria Few H Influenza Typ A,B (EIA) 02/16/19 02/16/19 07:40 08:25 WBC RBC Hgb Hct MCV MCH MCHC RDW Plt Count MPV Neut % (Auto) Lymph % (Auto) Cooper % (Auto) Eos % (Auto) Baso % (Auto) Neut # (Auto) Lymph # (Auto) Cooper # (Auto) Eos # (Auto) Baso # (Auto) Neutrophils % (Manual) Band Neutrophils % Lymphocytes % (Manual) Monocytes % (Manual) Eosinophils % (Manual) Platelet Estimate RBC Morphology PT INR APTT pCO2 53 H pO2 64 L HCO3 34.1 H ABG pH 7.46 H ABG Total CO2 39.3 H ABG O2 Saturation 95.7 ABG O2 Content 16.3 ABG Base Excess 11.9 H ABG Hemoglobin 12.6 ABG Carboxyhemoglobin 1.9 H POC ABG HHb (Measured) 4.1 ABG Methemoglobin 1.8 ABG O2 Capacity 17.0 Jonathan Test Yes VBG pH VBG pCO2 VBG HCO3 VBG Total CO2 VBG O2 Sat (Calc) VBG Base Excess VBG Potassium A-a O2 Difference 298.0 Hgb O2 Saturation 92.2 L Glucose Lactate Liter Flow 15 Vent Mode Hfnc FiO2 60.0 Sodium 139 Potassium 3.5 L Chloride 97 L Carbon Dioxide 35 H Anion Gap 11 BUN 29 H Creatinine 0.8 Est GFR ( Amer) > 60 Est GFR (Non-Af Amer) > 60 POC Glucose (mg/dL) Random Glucose 200 H Calcium 8.8 Total Bilirubin AST ALT Alkaline Phosphatase Total Protein Albumin Globulin Albumin/Globulin Ratio Venous Blood Potassium Urine Color Urine Clarity Urine pH Ur Specific [place] Urine Protein Urine Glucose (UA) Urine Ketones Urine Blood Urine Nitrate Urine Bilirubin Urine Urobilinogen Ur Leukocyte Esterase Urine RBC (Auto) Urine Microscopic WBC Urine Bacteria Influenza Typ A,B (EIA) Assessment & Plan (1) Multifocal pneumonia Status: Acute Priority: High (2) Sepsis Status: Acute Priority: High (3) COPD (chronic obstructive pulmonary disease) Status: Chronic Priority: High - Assessment and Plan (Free Text) Plan: Agree with current antibiotic regimen. Continue aerosol therapy and oxygen supplementation with HFNC. CT chest will be requested because of diffuse infiltrates. - Date & Time Date: 02/16/19 Time: 09:34
[2019-02-16] MEDS: Enoxaparin 40 mg Syringe SC SCH (10:32)
[2019-02-16] MEDS: Multivitamin With Minerals Tab PO SCH (10:33)
[2019-02-16] MEDS: diltiaZEM 180 mg/24 Hours CD Cap PO SCH (10:34)
[2019-02-16] MEDS: Pantoprazole 40 mg EC Tab PO SCH (10:34)
[2019-02-16 13:26] LABS: ABG ALLEN TEST YES; ARTERIAL BLOOD GAS HCO3 33.1 mmol/L (21-28); ARTERIAL BLOOD GAS HEMOGLOBIN 13.5 g/dL (11.7-17.4); ARTERIAL BLOOD GAS O2 CAPACITY 18.3 mL/dL (16-24); ARTERIAL BLOOD GAS O2 CONTENT 15.9 ML/dL (15-23); ARTERIAL BLOOD GAS PCO2 43 mm/Hg (35-45); ARTERIAL BLOOD GAS PH 7.52 (7.35-7.45); ARTERIAL BLOOD GAS PO2 46 mm/Hg (80-100); ARTERIAL BLOOD GAS TCO2 36.4 mmol/L (22-28)
[2019-02-16] MEDS: Tiotropium 18 mcg Cap For Inhalation IH SCH (14:21)
[2019-02-16] MEDS: Albuterol-Ipratrop 3 mg / 0.5 (3 ml) UD INH SCH ×2 (15:20→19:06)
[2019-02-16 15:23] LABS: BANDS 2 % (0-2); LYMPHOCYTE 9 % (20-50); MONOCYTE 5 % (0-10); NEUTROPHIL 84 % (42-75); PLATELET ESTIMATE NORMAL (NORMAL); TOTAL CELLS COUNTED 100
--- NOTE | 2019-02-16 16:06 | PQF ---
CAP- suspected cause: bacterial infection PROVIDER RESPONSE TEXT: Provider was unable to determine a response for this query. REVIEWER QUERY TEXT: Pneumonia Specificity Pneumonia is documented in the Medical Record. Please specify the type of pneumonia and the causative organism (includes probable or suspected) if known: i.e -- Aspiration pneumonia (please also specify the aspirate) - Please indicate if the aspiration is postprocedure -- Bacterial (please document suspected or probable organism) -- Bronchopneumonia (please document suspected or probable organism) -- Interstitial pneumonia -- Organizing pneumonia / BOOP -- Pneumonia with influenza, oby flu, or H1N1 flu -- RSV -- Viral -- Other, please specify 02/16 Progress note includes: admitted for further management of severe sepsis due to multifocal pneunomina. -Acute hypoxic respiratory failure (likely due to multifocal pneumonia in setting of COPD -C/w high flow oxygen with FIo2 of 60% -FU abg on room air -FU legionella, mycoplasma, and strep pneumonia antigen -COPD exacerbation (acute on chronic) -s/p STAT duoneb -C/w duoneb 3ml INH QID - C/w spiriva 18mcg IH QD The patient's Clinical Indicators include: -- Query created by: Rossy Gregg on 02/16/2019 2:12 PM Electronically signed by: Mattie Chen 02/16/2019 4:04 PM MTDD
--- NOTE | 2019-02-16 16:06 | PQF ---
COPD exacerbation present on admission with increased sputum production mostly likely to finding of multifocal pneumonia; acute hypoxic respiratory failure present on admission PROVIDER RESPONSE TEXT: On admission the patient was saturating at 86% on 4 L of NC, which warrants diagnosis of acute hypoxic respiratory failure. Abg on room air done today showed po2 of 46. Patient also has a dx of multifocal pneumonia REVIEWER QUERY TEXT: Present On Admission It is unclear whether a diagnosis was present on admission. Your help is needed. Please clarify the POA status of the following diagnosis codes: Acute hypoxic respiratory failure and COPD Exacerbation listed in the 02/16 progress note. Such as: -- Present on admission -- Not present on admission ER: PE: Appears: Positive for: No Acute Distress (speaking full sentences) Respiratory: Positive for: Decreased Breath Sounds Initial Plan includes:--Duoneb 3 ml INH --Solu-medrol 125 mg IVP Patient is 85% on 4 liters of oxygen.Vapotherm ordered Clinical Impression: Multifocal pneumonia, Sepsis, COPD (chronic obstructive pulmonary disease) The patient's Clinical Indicators include: -- Query created by: Rossy Gregg on 02/16/2019 2:06 PM Electronically signed by: Mattie Chen 02/16/2019 4:04 PM [facility]
[2019-02-16] MEDS ORDERED: SALMETEROL IH SCH (20:00)
[2019-02-16] MEDS ORDERED: FLUTICASONE PROPION IH SCH (20:00)
[2019-02-17] MEDS: Piperacillin/Tazobact 3.375 GM in Sodium Chloride 0.9% 100 ML IVPB SCH ×4 (03:57→21:54)
[2019-02-17 06:14] LABS: BASO # 0.1 K/uL (0.0-0.2); BASO % 0.2 % (0.0-2.0); MEAN CELL VOLUME 98.2 fl (80.0-94.0); MEAN CORPUSCULAR HEMOGLOBIN 32.4 pg (27.0-31.0); MEAN PLATELET VOLUME 9.1 fl (7.2-11.7); MONO # 0.5 K/uL (0.0-0.8); MONO % 1.6 % (0.0-10.0); NEUT # 30.7 K/uL (1.8-7.0); NEUT % 95.2 % (50.0-75.0); RBC 3.7 Mil/uL (4.40-5.90); RED CELL DISTRIBUTION WIDTH 13.2 % (11.5-14.5)
[2019-02-17 06:23] LABS: WHITE BLOOD COUNT 32.2 K/uL (4.8-10.8)
[2019-02-17 06:31] LABS: BLOOD UREA NITROGEN 44 mg/dl (9-20); CALCIUM 8.7 mg/dL (8.4-10.2); GFR NON-AFRICAN AMERICAN > 60
[2019-02-17] MEDS ORDERED: Sodium Chloride 3% for Inhalation 4 ML VIAL.NEB IH PRN (07:35)
[2019-02-17] MEDS: Albuterol-Ipratrop 3 mg / 0.5 (3 ml) UD INH SCH ×4 (07:41→19:07)
--- NOTE | 2019-02-17 07:44 | CP.PCM.PN ---
<Mattie Chen - Last Filed: 02/17/19 11:14> Subjective - Date & Time of Evaluation Date of Evaluation: 02/17/19 Time of Evaluation: 09:26 - Subjective Subjective: Patient was seen and examined this morning. Pt on high flow with FI02 of 60%, saturating at 90-93% this morning. Pt reports still having cough with less sputum production. He denies any f/c/cp or increased sob. Objective - Vital Signs/Intake and Output Vital Signs (last 24 hours): Temp Pulse Resp BP Pulse Ox 97.6 F 75 18 136/55 L 93 L 02/17/19 05:00 02/17/19 05:00 02/17/19 05:00 02/17/19 05:00 02/17/19 05:00 - Medications Medications: Current Medications Albuterol Sulfate (Albuterol 0.083% Inhal Svitlana (2.5 Mg/3 Ml) Ud) 2.5 mg INH RQ4 PRN PRN Reason: Shortness of Breath Albuterol/Ipratropium (Duoneb 3 Mg/0.5 Mg (3 Ml) Ud) 3 ml INH RQID [facility] Last Admin: 02/17/19 07:41 Dose: 3 ml Diltiazem HCl (Cardizem Cd) 180 mg PO DAILY [facility] Last Admin: 02/16/19 10:34 Dose: 180 mg Docusate Sodium (Colace) 100 mg PO BID PRN PRN Reason: Constipation Enoxaparin Sodium (Lovenox) 40 mg SC DAILY [facility]; Protocol Last Admin: 02/16/19 10:32 Dose: 40 mg Fluticasone Propionate (Flonase) 2 spr BENJAMIN DAILY [facility] Last Admin: 02/16/19 08:15 Dose: 2 spr Hydrochlorothiazide (Microzide) 12.5 mg PO DAILY [facility] Last Admin: 02/16/19 10:32 Dose: 12.5 mg Vancomycin HCl 1 gm/ Sodium (Chloride) 250 mls @ 166.667 mls/hr IVPB Q12 [facility]; Protocol Last Admin: 02/16/19 20:59 Dose: 166.667 mls/hr Piperacillin Sod/Tazobactam (Sod 3.375 gm/ Sodium Chloride) 100 mls @ 100 mls/hr IVPB Q6 [facility]; Protocol Last Admin: 02/17/19 03:57 Dose: 100 mls/hr Lisinopril (Zestril) 20 mg PO DAILY [facility] Last Admin: 02/16/19 10:34 Dose: 20 mg Methylprednisolone (Solu-Medrol) 60 mg IVP DAILY [facility] Multivitamins/Minerals (Therapeutic-M Tab) 1 tab PO DAILY [facility] Last Admin: 02/16/19 10:33 Dose: 1 tab Pantoprazole Sodium (Protonix Ec Tab) 40 mg PO DAILY [facility] Last Admin: 02/16/19 10:34 Dose: 40 mg Tiotropium [place] (Spiriva) 18 mcg IH DAILY [facility] Last Admin: 02/16/19 14:21 Dose: 18 mcg - Labs Labs: 02/17/19 04:25 02/17/19 04:25 PT 14.7 Seconds (9.8-13.1) H 02/15/19 13:45 INR 1.3 02/15/19 13:45 APTT 27.3 Seconds (25.6-37.1) 02/15/19 13:45 - Constitutional Appears: Non-toxic - Head Exam Head Exam: ATRAUMATIC - Eye Exam Eye Exam: EOMI - ENT Exam ENT Exam: Mucous Membranes Moist - Respiratory Exam Respiratory Exam: Decreased Breath Sounds Additional comments: scattered rhonchi - Cardiovascular Exam Cardiovascular Exam: REGULAR RHYTHM, +S1, +S2 - GI/Abdominal Exam GI & Abdominal Exam: Soft, Normal Bowel Sounds. absent: Guarding, Rigid, Tenderness - Extremities Exam Extremities Exam: absent: Calf Tenderness - Neurological Exam Neurological Exam: Alert, Awake, Oriented x3 - Psychiatric Exam Psychiatric exam: Normal Mood - Skin Skin Exam: Dry, Intact Assessment and Plan - Assessment and Plan (Free Text) Assessment: 73 y/o M with medhx of COPD & HTN presented to the ED complaining of increased sputum production x 7 days, admitted for further management of severe sepsis due to multifocal pneunomina. Sepsis (criteria met on admission) -103 bpm, RR max- 26 BP_ 144/58 WBC- 18.3 lactate- 1.8 -source: CXR showed multifocal pneumonia s/p Stat dose of rocephin & azithro in ED -C/w vanco & zosyn ( to start this evening) -monitor saturation & RR -FU vanco trough -Awaiting blood cultures Acute hypoxic respiratory failure (likely due to multifocal pneumonia in setting of COPD) -Room air abg: po2 of 46 -FU sputum culture Legionella & mycoplasma neg. -FU strep pneumo antigen -Will possibly decrease FIo2 of 40% -Dr. Matos recommendations appreciated COPD exacerbation (acute on chronic) -s/p STAT duoneb -C/w duoneb 3ml INH QID -C/w spiriva 18mcg IH QD -Salumedrol decrease to 40mg QD today HTN (chronic) -C/w home meds zestril -Hold HCTZ DVT prophylaxis -Lovenox 40mg SC <Macarena Phan - Last Filed: 02/17/19 14:42> Objective - Vital Signs/Intake and Output Vital Signs (last 24 hours): Temp Pulse Resp BP Pulse Ox 97.5 F L 81 18 142/62 93 L 02/17/19 13:00 02/17/19 13:00 02/17/19 13:00 02/17/19 13:00 02/17/19 13:00 - Medications Medications: Current Medications Albuterol Sulfate (Albuterol 0.083% Inhal Svitlana (2.5 Mg/3 Ml) Ud) 2.5 mg INH RQ4 PRN PRN Reason: Shortness of Breath Albuterol/Ipratropium (Duoneb 3 Mg/0.5 Mg (3 Ml) Ud) 3 ml INH RQID [facility] Last Admin: 02/17/19 11:18 Dose: 3 ml Diltiazem HCl (Cardizem Cd) 180 mg PO DAILY [facility] Last Admin: 02/17/19 09:21 Dose: 180 mg Docusate Sodium (Colace) 100 mg PO BID PRN PRN Reason: Constipation Enoxaparin Sodium (Lovenox) 40 mg SC DAILY [facility]; Protocol Last Admin: 02/17/19 09:22 Dose: 40 mg Fluticasone Propionate (Flonase) 2 spr BENJAMIN DAILY [facility] Last Admin: 02/17/19 09:23 Dose: 2 spr Hydrochlorothiazide (Microzide) 12.5 mg PO DAILY [facility] Last Admin: 02/16/19 10:32 Dose: 12.5 mg Vancomycin HCl 1 gm/ Sodium (Chloride) 250 mls @ 166.667 mls/hr IVPB Q12 [facility]; Protocol Last Admin: 02/17/19 09:25 Dose: 166.667 mls/hr Piperacillin Sod/Tazobactam (Sod 3.375 gm/ Sodium Chloride) 100 mls @ 100 mls/hr IVPB Q6 [facility]; Protocol Last Admin: 02/17/19 12:12 Dose: 100 mls/hr Lisinopril (Zestril) 20 mg PO DAILY [facility] Last Admin: 02/17/19 09:25 Dose: 20 mg Methylprednisolone (Solu-Medrol) 40 mg IVP DAILY [facility] Multivitamins/Minerals (Therapeutic-M Tab) 1 tab PO DAILY [facility] Last Admin: 02/17/19 09:24 Dose: 1 tab Pantoprazole Sodium (Protonix Ec Tab) 40 mg PO DAILY [facility] Last Admin: 02/17/19 09:25 Dose: 40 mg Tiotropium [place] (Spiriva) 18 mcg IH DAILY [facility] Last Admin: 02/17/19 09:24 Dose: 18 mcg - Labs Labs: 02/17/19 04:25 02/17/19 04:25 PT 14.7 Seconds (9.8-13.1) H 02/15/19 13:45 INR 1.3 02/15/19 13:45 APTT 27.3 Seconds (25.6-37.1) 02/15/19 13:45 Attending/Attestation - Attestation I have personally seen and examined this patient.: Yes I have fully participated in the care of the patient.: Yes I have reviewed all pertinent clinical information, including history, physical exam and plan: Yes Notes (Text): Sepsis sec to Pneumonia Acute Hypercapneic and Hypoxemic Respiratory Failure Acute COPD exacerbation HTN - Pt on High Flow Oxygen 25L/60% -cont IV Vanco and Zosyn - cont IV Solumedrol , decrease to 40mg daily -cont Duoneb , Spiriva -cont Lisinopril and Cardizem
[2019-02-17] MEDS: diltiaZEM 180 mg/24 Hours CD Cap PO SCH (09:21)
[2019-02-17] MEDS: Enoxaparin 40 mg Syringe SC SCH (09:22)
[2019-02-17] MEDS: Multivitamin With Minerals Tab PO SCH (09:24)
[2019-02-17] MEDS: Tiotropium 18 mcg Cap For Inhalation IH SCH (09:24)
[2019-02-17] MEDS: Pantoprazole 40 mg EC Tab PO SCH (09:25)
--- NOTE | 2019-02-17 10:18 | CP.PCM.PN ---
Subjective - Date & Time of Evaluation Date of Evaluation: 02/17/19 Time of Evaluation: 10:15 - Subjective Subjective: Seen on rounds in telemetry. Slept poorly last night (multiple reasons). Doesn't feel as good today as yesterday. Remains afebrile and VS are stable. On HFNC with 60% O2; SpO2 has been 90-97%. WBC is up to 32 this morning. Chemistries are okay except for glucose. Presently receiving solumedrol 60MG once daily. Mycoplasma and Legionella negative. Pharynx is pink and moist w/o exudate. Nares are patent bilaterally w/o bleeding or exudate. Neck is supple and trachea is midline. No dullness on chest percussion, increased AP diameter of thorax. Breath sounds are diminished bilaterally. Fixed sonorous rhonchi on the right. No audible wheezes or bronchial breath sounds. Scattered dry rales in LLs. Heart sounds are distant and regular. No dependant edema, no cyanosis, extremities are warm and pink. Pneumonia; atypical. Exacerbation of COPD secondary to the above. Excessive leukocytosis may be in part steroid related. Hyperglycemia is steroid related as well as infection induced. Fixed rhonchus on the right needs further investigation. Reduce steroid dose to 40MG daily. Continue accucheck coverage. Same antibiotics. Objective - Vital Signs/Intake and Output Vital Signs (last 24 hours): Temp Pulse Resp BP Pulse Ox 98.4 F 79 18 135/61 90 L 02/17/19 08:00 02/17/19 09:25 02/17/19 08:00 02/17/19 09:25 02/17/19 08:00 - Medications Medications: Current Medications Albuterol Sulfate (Albuterol 0.083% Inhal Svitlana (2.5 Mg/3 Ml) Ud) 2.5 mg INH RQ4 PRN PRN Reason: Shortness of Breath Albuterol/Ipratropium (Duoneb 3 Mg/0.5 Mg (3 Ml) Ud) 3 ml INH RQID [facility] Last Admin: 02/17/19 07:41 Dose: 3 ml Diltiazem HCl (Cardizem Cd) 180 mg PO DAILY [facility] Last Admin: 02/17/19 09:21 Dose: 180 mg Docusate Sodium (Colace) 100 mg PO BID PRN PRN Reason: Constipation Enoxaparin Sodium (Lovenox) 40 mg SC DAILY [facility]; Protocol Last Admin: 02/17/19 09:22 Dose: 40 mg Fluticasone Propionate (Flonase) 2 spr BENJAMIN DAILY [facility] Last Admin: 02/17/19 09:23 Dose: 2 spr Hydrochlorothiazide (Microzide) 12.5 mg PO DAILY [facility] Last Admin: 02/16/19 10:32 Dose: 12.5 mg Vancomycin HCl 1 gm/ Sodium (Chloride) 250 mls @ 166.667 mls/hr IVPB Q12 [facility]; Protocol Last Admin: 02/17/19 09:25 Dose: 166.667 mls/hr Piperacillin Sod/Tazobactam (Sod 3.375 gm/ Sodium Chloride) 100 mls @ 100 mls/hr IVPB Q6 [facility]; Protocol Last Admin: 02/17/19 03:57 Dose: 100 mls/hr Lisinopril (Zestril) 20 mg PO DAILY [facility] Last Admin: 02/17/19 09:25 Dose: 20 mg Methylprednisolone (Solu-Medrol) 60 mg IVP DAILY [facility] Last Admin: 02/17/19 09:24 Dose: 60 mg Multivitamins/Minerals (Therapeutic-M Tab) 1 tab PO DAILY [facility] Last Admin: 02/17/19 09:24 Dose: 1 tab Pantoprazole Sodium (Protonix Ec Tab) 40 mg PO DAILY [facility] Last Admin: 02/17/19 09:25 Dose: 40 mg Tiotropium [place] (Spiriva) 18 mcg IH DAILY [facility] Last Admin: 02/17/19 09:24 Dose: 18 mcg - Labs Labs: 02/17/19 04:25 02/17/19 04:25 PT 14.7 Seconds (9.8-13.1) H 02/15/19 13:45 INR 1.3 02/15/19 13:45 APTT 27.3 Seconds (25.6-37.1) 02/15/19 13:45 Assessment and Plan (1) Multifocal pneumonia Status: Acute (2) Sepsis Status: Acute (3) COPD exacerbation Status: Acute
--- NOTE | 2019-02-17 11:11 | PQF ---
PROVIDER RESPONSE TEXT: Unsure if Acute respiratory failure was present on admission bc vbg was done in ED and abg initially was done with FI02 of 60% REVIEWER QUERY TEXT: Present On Admission It is unclear whether a diagnosis was present on admission. Your help is needed. Please clarify the POA status of the following diagnosis codes: COPD Exacerbation listed in the 02/16 progress note. Such as: -- Present on admission -- Not present on admission ER: PE: Appears: Positive for: No Acute Distress (speaking full sentences) Respiratory: Positive for: Decreased Breath Sounds Initial Plan includes:--Duoneb 3 ml INH --Solu-medrol 125 mg IVP Patient is 85% on 4 liters of oxygen .Vapotherm ordered Clinical Impression: Multifocal pneumonia, Sepsis, COPD (chronic obstructive pulmonary disease) The patient's Clinical Indicators include: - Query created by: Rossy Gregg on 02/17/2019 7:48 AM Electronically signed by: Mattie Chen 02/17/2019 11:07 AM
--- NOTE | 2019-02-17 15:38 | CP.PCM.CON ---
History of Present Illness - History of Present Illness History of Present Illness: Palliative Care Consult requested by Dr. Phan Patient is a 73 year old male who came to the ED complaining of a productive cough with thick green sputum x6days. He states that he used mucinex w no relief of symptoms. CXR was taken and he was shown to have multifocal pneumonia. Patient states that last time he had pneumonia was 14 years ago. Patient is currently admitted for pneumonia. He is currently on high flow O2 and is receiving IV antibiotics. PMH: HTN,COPD Soc hx: former smoker, denies etoh or drug abuse fam hx: unknown 02/15/19 CXR: Multifocal Pneumonia 02/17/19 wbc: 32 Review of Systems - Review of Systems Review of Systems: obtained from the patient in bed - Cardiovascular Cardiovascular: Dyspnea - Respiratory Respiratory: Cough, Dyspnea Past Patient History - Past Social History Smoking Status: Former Smoker - CARDIAC Hx Cardiac Disorders: Yes Hx Hypertension: Yes - PULMONARY Hx Respiratory Disorders: Yes Hx Asthma: Yes Hx Chronic Obstructive Pulmonary Disease (COPD): Yes - NEUROLOGICAL Hx Neurological Disorder: No - HEENT Hx HEENT Problems: No - RENAL Hx Chronic Kidney Disease: No - ENDOCRINE/METABOLIC Hx Endocrine Disorders: No - HEMATOLOGICAL/ONCOLOGICAL Hx Blood Disorders: No - INTEGUMENTARY Hx Dermatological Problems: No - MUSCULOSKELETAL/RHEUMATOLOGICAL Hx Musculoskeletal Disorders: No Hx Falls: Yes - GASTROINTESTINAL Hx Gastrointestinal Disorders: No - GENITOURINARY/GYNECOLOGICAL Hx Genitourinary Disorders: No - PSYCHIATRIC Hx Psychophysiologic Disorder: No - SURGICAL HISTORY Hx Surgeries: No - ANESTHESIA Hx Anesthesia: No Meds Allergies/Adverse Reactions: Allergies Allergy/AdvReac Type Severity Reaction Status Date / Time No Known Allergies Allergy Verified 08/22/18 16:45 - Medications Medications: Current Medications Albuterol Sulfate (Albuterol 0.083% Inhal Svitlana (2.5 Mg/3 Ml) Ud) 2.5 mg INH RQ4 PRN PRN Reason: Shortness of Breath Albuterol/Ipratropium (Duoneb 3 Mg/0.5 Mg (3 Ml) Ud) 3 ml INH RQID [facility] Last Admin: 02/17/19 15:19 Dose: 3 ml Diltiazem HCl (Cardizem Cd) 180 mg PO DAILY [facility] Last Admin: 02/17/19 09:21 Dose: 180 mg Docusate Sodium (Colace) 100 mg PO BID PRN PRN Reason: Constipation Enoxaparin Sodium (Lovenox) 40 mg SC DAILY [facility]; Protocol Last Admin: 02/17/19 09:22 Dose: 40 mg Fluticasone Propionate (Flonase) 2 spr BENJAMIN DAILY [facility] Last Admin: 02/17/19 09:23 Dose: 2 spr Hydrochlorothiazide (Microzide) 12.5 mg PO DAILY [facility] Last Admin: 02/16/19 10:32 Dose: 12.5 mg Vancomycin HCl 1 gm/ Sodium (Chloride) 250 mls @ 166.667 mls/hr IVPB Q12 [facility]; Protocol Last Admin: 02/17/19 09:25 Dose: 166.667 mls/hr Piperacillin Sod/Tazobactam (Sod 3.375 gm/ Sodium Chloride) 100 mls @ 100 mls/h r IVPB Q6 [facility]; Protocol Last Admin: 02/17/19 12:12 Dose: 100 mls/hr Lisinopril (Zestril) 20 mg PO DAILY [facility] Last Admin: 02/17/19 09:25 Dose: 20 mg Methylprednisolone (Solu-Medrol) 40 mg IVP DAILY [facility] Multivitamins/Minerals (Therapeutic-M Tab) 1 tab PO DAILY [facility] Last Admin: 02/17/19 09:24 Dose: 1 tab Pantoprazole Sodium (Protonix Ec Tab) 40 mg PO DAILY [facility] Last Admin: 02/17/19 09:25 Dose: 40 mg Tiotropium [place] (Spiriva) 18 mcg IH DAILY [facility] Last Admin: 02/17/19 09:24 Dose: 18 mcg Physical Exam - Constitutional Appears: No Acute Distress - Head Exam Head Exam: ATRAUMATIC, NORMAL INSPECTION, NORMOCEPHALIC - Eye Exam Eye Exam: Normal appearance, PERRL - ENT Exam ENT Exam: Mucous Membranes Moist - Neck Exam Neck exam: Positive for: Normal Inspection - Respiratory Exam Respiratory Exam: Decreased Breath Sounds - Cardiovascular Exam Cardiovascular Exam: REGULAR RHYTHM - GI/Abdominal Exam GI & Abdominal Exam: Normal Bowel Sounds, Soft - Extremities Exam Extremities exam: Positive for: pedal pulses present - Neurological Exam Neurological exam: Alert, Oriented x3 - Psychiatric Exam Psychiatric exam: Normal Affect, Normal Mood - Skin Skin Exam: Dry, Intact, Warm Results - Vital Signs Recent Vital Signs: Last Vital Signs Temp 97.5 F L 02/17/19 13:00 Pulse 81 02/17/19 13:00 Resp 18 02/17/19 15:22 BP 142/62 02/17/19 13:00 Pulse Ox 93 L 02/17/19 13:00 - Labs Result Diagrams: 02/17/19 04:25 02/17/19 04:25 Labs: Laboratory Results - last 24 hr 02/16/19 02/16/19 02/16/19 10:30 15:00 16:27 WBC RBC Hgb Hct MCV MCH MCHC RDW Plt Count MPV Neut % (Auto) Lymph % (Auto) [place] % (Auto) Eos % (Auto) Baso % (Auto) Neut # (Auto) Lymph # (Auto) [place] # (Auto) Eos # (Auto) Baso # (Auto) Total Counted Neutrophils % (Manual) Band Neutrophils % Lymphocytes % (Manual) Reactive Lymphs % Monocytes % (Manual) Eosinophils % (Manual) Basophils % (Manual) Metamyelocytes % Myelocytes % Promyelocytes % Blast Cells % Plasma Cell % (Manual) Nucleated RBC % Hypersegmented Polys Smudge Cells Toxic Granulation Dohle Bodies Braden Rods Platelet Estimate Plt Clumps, EDTA Large Platelets Giant Platelets RBC Morphology Polychromasia Hypochromasia (manual) Poikilocytosis (manual Basophilic Stippling Anisocytosis (manual) Microcytosis (manual) Macrocytosis (manual) Spherocytes Sickle Cells Target Cells Tear Drop Cells Ovalocytes Stomatocytes Helmet Cells [place] Bodies Elisa Cells Acanthocytes (Spur) Rouleaux Schistocytes Sodium Potassium Chloride Carbon Dioxide Anion Gap BUN Creatinine Est GFR ( Amer) Est GFR (Non-Af Amer) POC Glucose (mg/dL) 300 H 197 H Random Glucose Calcium Vancomycin Trough Ur L.pneumophila Ag Negative 02/16/19 02/17/19 02/17/19 21:26 04:25 04:25 WBC 32.2 H RBC 3.70 L Hgb 12.0 Hct 36.3 MCV 98.2 H MCH 32.4 H MCHC 33.0 RDW 13.2 Plt Count 350 MPV 9.1 Neut % (Auto) 95.2 H Lymph % (Auto) 3.0 L [place] % (Auto) 1.6 Eos % (Auto) 0.0 Baso % (Auto) 0.2 Neut # (Auto) 30.7 H Lymph # (Auto) 1.0 [place] # (Auto) 0.5 Eos # (Auto) 0.0 Baso # (Auto) 0.1 Total Counted Cancelled Neutrophils % (Manual) Cancelled Band Neutrophils % Cancelled Lymphocytes % (Manual) Cancelled Reactive Lymphs % Cancelled Monocytes % (Manual) Cancelled Eosinophils % (Manual) Cancelled Basophils % (Manual) Cancelled Metamyelocytes % Cancelled Myelocytes % Cancelled Promyelocytes % Cancelled Blast Cells % Cancelled Plasma Cell % (Manual) Cancelled Nucleated RBC % Cancelled Hypersegmented Polys Cancelled Smudge Cells Cancelled Toxic Granulation Cancelled Dohle Bodies Cancelled Braden Rods Cancelled Platelet Estimate Cancelled Plt Clumps, EDTA Cancelled Large Platelets Cancelled Giant Platelets Cancelled RBC Morphology Cancelled Polychromasia Cancelled Hypochromasia (manual) Cancelled Poikilocytosis (manual Cancelled Basophilic Stippling Cancelled Anisocytosis (manual) Cancelled Microcytosis (manual) Cancelled Macrocytosis (manual) Cancelled Spherocytes Cancelled Sickle Cells Cancelled Target Cells Cancelled Tear Drop Cells Cancelled Ovalocytes Cancelled Stomatocytes Cancelled Helmet Cells Cancelled [place] Bodies Cancelled [place] Cells Cancelled Acanthocytes (Spur) Cancelled Rouleaux Cancelled Schistocytes Cancelled Sodium 137 Potassium 3.7 Chloride 97 L Carbon Dioxide 33 H Anion Gap 11 BUN 44 H Creatinine 1.0 Est GFR ( Amer) > 60 Est GFR (Non-Af Amer) > 60 POC Glucose (mg/dL) 226 H Random Glucose 219 H Calcium 8.7 Vancomycin Trough Ur L.pneumophila Ag 02/17/19 02/17/19 02/17/19 05:47 06:15 10:37 WBC RBC Hgb Hct MCV MCH MCHC RDW Plt Count MPV Neut % (Auto) Lymph % (Auto) [place] % (Auto) Eos % (Auto) Baso % (Auto) Neut # (Auto) Lymph # (Auto) [place] # (Auto) Eos # (Auto) Baso # (Auto) Total Counted Neutrophils % (Manual) Band Neutrophils % Lymphocytes % (Manual) Reactive Lymphs % Monocytes % (Manual) Eosinophils % (Manual) Basophils % (Manual) Metamyelocytes % Myelocytes % Promyelocytes % Blast Cells % Plasma Cell % (Manual) Nucleated RBC % Hypersegmented Polys Smudge Cells Toxic Granulation Dohle Bodies Braden Rods Platelet Estimate Plt Clumps, EDTA Large Platelets Giant Platelets RBC Morphology Polychromasia Hypochromasia (manual) Poikilocytosis (manual Basophilic Stippling Anisocytosis (manual) Microcytosis (manual) Macrocytosis (manual) Spherocytes Sickle Cells Target Cells Tear Drop Cells Ovalocytes Stomatocytes Helmet Cells [place] Bodies Elisa Cells Acanthocytes (Spur) Rouleaux Schistocytes Sodium Potassium Chloride Carbon Dioxide Anion Gap BUN Creatinine Est GFR ( Amer) Est GFR (Non-Af Amer) POC Glucose (mg/dL) 240 H 285 H Random Glucose Calcium Vancomycin Trough 12.7 H Ur L.pneumophila Ag Assessment & Plan - Assessment and Plan (Free Text) Assessment: Palliative Consult Full Code, there is no advanced directive in the chart, Palliative Performance Scale 60% I reviewed medical records, diagnostic studies, examined and interviewed the patient in bed Examined patient in bed. Patient aaox3, reporting that sputum is productive and not as thick as before. No acute distress, no complaints of pain. Goals of Care: Full treatment, Patient states that he is very independent at home and takes a walk around his neighborhood every morning at 6am. He states that he has been unable to do much with PT due to being connected to IV and high flow oxygen. Patient reassured that physical therapy will continue and goal is to eventually ween him off of high flow. Patient verbalized understanding of COPD warning signs and when to contact PMD or come to ED. Code Status: Full Code Impression Multifocal Pneumonia COPD exacerbation productive Cough Decreased Mobility Suggestion Finish Antibiotic Therapy oral hydration to loosen sputum Keep head semifowlers or propped up with pillows Continue physical therapy Palliative Care will remain on board as needed Time Spent with this patient 55 min
--- NOTE | 2019-02-17 15:44 | CT ---
Date of service: 02/17/2019 PROCEDURE: CT Chest without contrast HISTORY: pneumonia COMPARISON: None available. TECHNIQUE: Contiguous axial images were obtained through the chest without intravenous contrast enhancement. Sagittal and coronal reconstructions were performed. Additional high-resolution 1.25 mm images were acquired at 10 mm intervals through the lungs. Radiation dose (DLP): 390.74 mGy-cm. This CT exam was performed using one or more of the following dose reduction techniques: Automated exposure control, adjustment of the mA and/or kV according to patient size, and/or use of iterative reconstruction technique. FINDINGS: LUNGS: There consolidation in the right lower lobe, likely dependent atelectasis. In addition, there is probable small airways disease in the superior segment right lower lobe. Also in the superior segment right lower lobe there are multiple small opacities with very small central areas of cavitation. Uncertain significance. There are patchy opacities in the left upper lobe, both in the anterior segment and in the apical posterior segment demonstrating some ground-glass opacity as well as probable small airways disease. There is no generalized interstitial infiltrate. There is centrilobular pulmonary emphysema. MEDIASTINUM: No evidence of thoracic aortic aneurysm. Normal heart size. Coronary arterial calcification. Main pulmonary artery unremarkable. No vascular congestion. No lymphadenopathy. There is atherosclerotic calcification of the thoracic aorta. There is a 1.5 cm nodule in the right lobe of the thyroid. Correlation with thyroid ultrasound examination is suggested. PLEURA: No pleural fluid. No pneumothorax. BONES: No fracture. No destructive lesion. UPPER ABDOMEN: Grossly unremarkable. OTHER FINDINGS: None. IMPRESSION: Multifocal small opacities in the right lower lobe with small areas of central cavitation. Scattered areas of small airways disease in the superior segment right lower lobe. Nonspecific patchy opacities in the left upper lobe. Possible infectious or inflammatory etiology. Nonspecific. Probable right lower lobe segmental/subsegmental atelectasis. Centrilobular pulmonary emphysema. Incidental 1.5 cm nodule in right lobe of thyroid. Recommend correlation with thyroid ultrasound examination.
[2019-02-18] MEDS: Piperacillin/Tazobact 3.375 GM in Sodium Chloride 0.9% 100 ML IVPB SCH ×4 (03:27→22:28)
[2019-02-18 06:00] LABS: HEMOGLOBIN 12.4 g/dL (12.0-18.0); MEAN CELL VOLUME 97.9 fl (80.0-94.0); MEAN CORPUSCULAR HEMOGLOBIN 32.2 pg (27.0-31.0); MEAN CORPUSCULAR HGB CONC 32.9 g/dL (33.0-37.0); RBC 3.83 Mil/uL (4.40-5.90); RED CELL DISTRIBUTION WIDTH 13.3 % (11.5-14.5)
[2019-02-18 06:17] LABS: BLOOD UREA NITROGEN 34 mg/dl (9-20); CALCIUM 8.8 mg/dL (8.4-10.2); GFR NON-AFRICAN AMERICAN > 60
[2019-02-18 06:37] LABS: WHITE BLOOD COUNT 21.4 K/uL (4.8-10.8)
[2019-02-18] MEDS: Albuterol-Ipratrop 3 mg / 0.5 (3 ml) UD INH SCH ×4 (07:31→19:11)
[2019-02-18] MEDS: Enoxaparin 40 mg Syringe SC SCH (08:24)
--- NOTE | 2019-02-18 08:24 | CP.PCM.PN ---
<Mattie Chen - Last Filed: 02/18/19 14:50> Subjective - Date & Time of Evaluation Date of Evaluation: 02/18/19 Time of Evaluation: 09:46 - Subjective Subjective: Patient seen and examined this morning. Patient was on high flow nc with saturations ranging from 90-92%. Patient reports mucus production has decreased. He denied any f/c/nv/diarrhea, cp or increased sob from his usual baseline. Objective - Vital Signs/Intake and Output Vital Signs (last 24 hours): Temp Pulse Resp BP Pulse Ox 97.5 F L 85 18 151/57 H 90 L 02/18/19 08:00 02/18/19 08:00 02/18/19 08:00 02/18/19 08:00 02/18/19 08:00 - Medications Medications: Current Medications Albuterol Sulfate (Albuterol 0.083% Inhal Svitlana (2.5 Mg/3 Ml) Ud) 2.5 mg INH RQ4 PRN PRN Reason: Shortness of Breath Albuterol/Ipratropium (Duoneb 3 Mg/0.5 Mg (3 Ml) Ud) 3 ml INH RQID [facility] Last Admin: 02/18/19 07:31 Dose: 3 ml Diltiazem HCl (Cardizem Cd) 180 mg PO DAILY [facility] Last Admin: 02/17/19 09:21 Dose: 180 mg Docusate Sodium (Colace) 100 mg PO BID PRN PRN Reason: Constipation Enoxaparin Sodium (Lovenox) 40 mg SC DAILY [facility]; Protocol Last Admin: 02/17/19 09:22 Dose: 40 mg Fluticasone Propionate (Flonase) 2 spr BENJAMIN DAILY [facility] Last Admin: 02/17/19 09:23 Dose: 2 spr Hydrochlorothiazide (Microzide) 12.5 mg PO DAILY [facility] Last Admin: 02/16/19 10:32 Dose: 12.5 mg Vancomycin HCl 1 gm/ Sodium (Chloride) 250 mls @ 166.667 mls/hr IVPB Q12 [facility]; Protocol Last Admin: 02/17/19 21:53 Dose: 166.667 mls/hr Piperacillin Sod/Tazobactam (Sod 3.375 gm/ Sodium Chloride) 100 mls @ 100 mls/hr IVPB Q6 [facility]; Protocol Last Admin: 02/18/19 03:27 Dose: 100 mls/hr Sodium Chloride (Sodium Chloride 0.9%) 1,000 mls @ 125 mls/hr IV .Q8H [facility] Stop: 02/19/19 08:20 Lisinopril (Zestril) 20 mg PO DAILY [facility] Last Admin: 02/17/19 09:25 Dose: 20 mg Methylprednisolone (Solu-Medrol) 40 mg IVP DAILY [facility] Multivitamins/Minerals (Therapeutic-M Tab) 1 tab PO DAILY [facility] Last Admin: 02/17/19 09:24 Dose: 1 tab Pantoprazole Sodium (Protonix Ec Tab) 40 mg PO DAILY [facility] Last Admin: 02/17/19 09:25 Dose: 40 mg Potassium Chloride (K-Dur 20 Meq Er Tab) 40 meq PO ONCE ONE Stop: 02/18/19 08:31 Tiotropium [place] (Spiriva) 18 mcg IH DAILY [facility] Last Admin: 02/17/19 09:24 Dose: 18 mcg - Labs Labs: 02/18/19 04:25 02/18/19 04:25 PT 14.7 Seconds (9.8-13.1) H 02/15/19 13:45 INR 1.3 02/15/19 13:45 APTT 27.3 Seconds (25.6-37.1) 02/15/19 13:45 - Constitutional Appears: Non-toxic - Head Exam Head Exam: ATRAUMATIC, NORMAL INSPECTION, NORMOCEPHALIC - ENT Exam ENT Exam: Mucous Membranes Moist - Respiratory Exam Respiratory Exam: absent: Respiratory Distress Additional comments: scattered rhonchi - Cardiovascular Exam Cardiovascular Exam: +S1, +S2 - GI/Abdominal Exam GI & Abdominal Exam: Soft. absent: Guarding, Rigid, Tenderness - Extremities Exam Extremities Exam: absent: Calf Tenderness - Neurological Exam Neurological Exam: Alert, Awake, Oriented x3 - Psychiatric Exam Psychiatric exam: Normal Mood - Skin Skin Exam: Dry, Intact Assessment and Plan - Assessment and Plan (Free Text) Assessment: 73 y/o M with medhx of COPD & HTN presented to the ED complaining of increased sputum production x 7 days, admitted for further management of severe sepsis due to multifocal pneunomina. Sepsis (criteria met on admission) -103 bpm, RR max- 26 BP_ 144/58 WBC- 18.3 lactate- 1.8 -source: CXR showed multifocal pneumonia s/p Stat dose of rocephin & azithro in ED -C/w vanco & zosyn day 3 -monitor saturation & RR -Vanco trough 12.7 - blood cultures shows no growth Acute hypoxic respiratory failure (likely due to multifocal pneumonia in setting of COPD) -Room air abg: po2 of 46; repeat abg on FI02 of 60% with po2 of 77L increased from intial abg on FIo2 of 660%- 64L - sputum culture: gram stain- no organisms; rare epithelial cells; moderate polymorphonuclear wbcs -Legionella & mycoplasma neg. -Strep pneumo antigen neg -Was on high flow; patient now on high flow NC with saturations maintaining in 90-92. -Will switch to standard NC with 3L/minute as rec by Dr. Matos. COPD exacerbation (acute on chronic) -s/p STAT duoneb -C/w duoneb 3ml INH QID -C/w spiriva 18mcg IH QD -Salumedrol decrease from 40mg to 30mg QD today HTN (chronic) -C/w home meds zestril -HCTZ was restarted DVT prophylaxis -Lovenox 40mg SC <Cookie Girard - Last Filed: 02/20/19 15:54> Objective - Vital Signs/Intake and Output Vital Signs (last 24 hours): Temp Pulse Resp BP Pulse Ox 97.5 F L 78 18 148/65 93 L 02/19/19 12:07 02/19/19 12:07 02/19/19 12:07 02/19/19 12:07 02/19/19 12:07 - Labs Labs: 02/19/19 04:25 02/19/19 04:25 PT 14.7 Seconds (9.8-13.1) H 02/15/19 13:45 INR 1.3 02/15/19 13:45 APTT 27.3 Seconds (25.6-37.1) 02/15/19 13:45 Attending/Attestation - Attestation I have personally seen and examined this patient.: Yes I have fully participated in the care of the patient.: Yes I have reviewed all pertinent clinical information, including history, physical exam and plan: Yes Notes (Text): 02/20/19 15:54 This is a 73-year-old male past medical history of COPD and hypertension presented with sputum production for 7 days, admitted for sepsis secondary to multifocal pneumonia. He is currently on antibiotics, is requiring high flow nasal cannula. We will continue to with bronchodilators as well as IV antibiotics and hopefully titrate him off the high flow.
[2019-02-18] MEDS: diltiaZEM 180 mg/24 Hours CD Cap PO SCH (08:25)
[2019-02-18] MEDS: Tiotropium 18 mcg Cap For Inhalation IH SCH (08:25)
[2019-02-18] MEDS: Multivitamin With Minerals Tab PO SCH (08:25)
[2019-02-18] MEDS: Pantoprazole 40 mg EC Tab PO SCH (08:26)
[2019-02-18] MEDS: Sodium Chloride 0.9% 1,000 ML IV SCH ×2 (08:28→16:30)
[2019-02-18] MEDS ORDERED: Potassium Chloride 20 mEq ER Tab PO ONE (08:30)
[2019-02-18] MEDS ORDERED: methylPREDNISolone 40 MG in Sodium Chloride 0.9% 50 ML IV SCH (09:00)
[2019-02-18] MEDS ORDERED: MethylPREDNISolone 40 mg Vial IVP SCH ×2 (09:00)
--- NOTE | 2019-02-18 10:11 | CP.PCM.PN ---
Subjective - Date & Time of Evaluation Date of Evaluation: 02/18/19 Time of Evaluation: 10:11 - Subjective Subjective: Patient is seated comfortably in bed having returned from echocardiogram. He states that he is feeling relatively well today compared to the day prior. SpO2 was noted to be 94% with high flow nasal cannula. He was changed to a standard nasal cannula at 3 L/m and maintained SpO2 of 90-92%. On examination there is no dullness to percussion but there are scattered rhonchi and medium rales throughout both lung veliz. No audible wheezes. No bronchial breath sounds or egophony. No dependent edema or cyanosis. CT scan of the thorax was reviewed showing multiple small nodular infiltrates with central cavitation throughout both lungs. Current admission includes influenza with pneumonia. Much of this pneumonia appears to represent microaspiration of oral pharyngeal contents with multiple caries. Continue current medical management with antibiotics. Switch to standard nasal cannula at 3 L/m. Patient has been advised that subsequent to discharge she will require having these caries addressed. Objective - Vital Signs/Intake and Output Vital Signs (last 24 hours): Temp Pulse Resp BP Pulse Ox 97.5 F L 85 18 151/57 H 90 L 02/18/19 08:00 02/18/19 08:26 02/18/19 08:00 02/18/19 08:26 02/18/19 08:00 - Medications Medications: Current Medications Albuterol Sulfate (Albuterol 0.083% Inhal Svitlana (2.5 Mg/3 Ml) Ud) 2.5 mg INH RQ4 PRN PRN Reason: Shortness of Breath Albuterol/Ipratropium (Duoneb 3 Mg/0.5 Mg (3 Ml) Ud) 3 ml INH RQID [facility] Last Admin: 02/18/19 07:31 Dose: 3 ml Diltiazem HCl (Cardizem Cd) 180 mg PO DAILY [facility] Last Admin: 02/18/19 08:25 Dose: 180 mg Docusate Sodium (Colace) 100 mg PO BID PRN PRN Reason: Constipation Enoxaparin Sodium (Lovenox) 40 mg SC DAILY [facility]; Protocol Last Admin: 02/18/19 08:24 Dose: 40 mg Fluticasone Propionate (Flonase) 2 spr BENJAMIN DAILY [facility] Last Admin: 02/18/19 08:24 Dose: 2 spr Hydrochlorothiazide (Microzide) 12.5 mg PO DAILY [facility] Last Admin: 02/16/19 10:32 Dose: 12.5 mg Vancomycin HCl 1 gm/ Sodium (Chloride) 250 mls @ 166.667 mls/hr IVPB Q12 [facility]; Protocol Last Admin: 02/18/19 08:29 Dose: 166.667 mls/hr Piperacillin Sod/Tazobactam (Sod 3.375 gm/ Sodium Chloride) 100 mls @ 100 mls/hr IVPB Q6 [facility]; Protocol Last Admin: 02/18/19 09:01 Dose: 100 mls/hr Sodium Chloride (Sodium Chloride 0.9%) 1,000 mls @ 125 mls/hr IV .Q8H [facility] Stop: 02/19/19 08:20 Last Admin: 02/18/19 08:28 Dose: 125 mls/hr Lisinopril (Zestril) 20 mg PO DAILY [facility] Last Admin: 02/18/19 08:26 Dose: 20 mg Methylprednisolone (Solu-Medrol) 40 mg IVP DAILY [facility] Last Admin: 02/18/19 08:23 Dose: 40 mg Multivitamins/Minerals (Therapeutic-M Tab) 1 tab PO DAILY [facility] Last Admin: 02/18/19 08:25 Dose: 1 tab Pantoprazole Sodium (Protonix Ec Tab) 40 mg PO DAILY [facility] Last Admin: 02/18/19 08:26 Dose: 40 mg Tiotropium [place] (Spiriva) 18 mcg IH DAILY [facility] Last Admin: 02/18/19 08:25 Dose: 18 mcg - Labs Labs: 02/18/19 04:25 02/18/19 04:25 PT 14.7 Seconds (9.8-13.1) H 02/15/19 13:45 INR 1.3 02/15/19 13:45 APTT 27.3 Seconds (25.6-37.1) 02/15/19 13:45 Assessment and Plan (1) Multifocal pneumonia Status: Acute (2) Sepsis Status: Acute (3) COPD exacerbation Status: Acute
[2019-02-18 10:55] LABS: ABG ALLEN TEST YES; ARTERIAL BLOOD GAS HCO3 32.6 mmol/L (21-28); ARTERIAL BLOOD GAS O2 CAPACITY 17.7 mL/dL (16-24); ARTERIAL BLOOD GAS O2 CONTENT 17.4 ML/dL (15-23); ARTERIAL BLOOD GAS O2 SAT 98.1 % (95-98); ARTERIAL BLOOD GAS PCO2 44 mm/Hg (35-45); ARTERIAL BLOOD GAS PO2 77 mm/Hg (80-100); ARTERIAL BLOOD GAS TCO2 35.7 mmol/L (22-28)
--- NOTE | 2019-02-18 23:21 | CARD ---
APPROVED REPORT Date of service: 02/18/2019 EXAM: Two-dimensional and M-mode echocardiogram with Doppler and color Doppler. Other Information Quality : AverageRhythm : NSR INDICATION LV Function:SystolicDiastolic 2D DIMENSIONS IVSd0.88 (0.7-1.1cm)LVDd4.10 (3.9-5.9cm) PWd0.73 (0.7-1.1cm)IVSs1.34 (0.8-1.2cm) LVDs2.78 (2.5-4.0cm)FS (%) 32.2 % PWs1.13 (0.8-1.2cm) M-Mode DIMENSIONS Left Atrium (MM)4.34 (2.5-4.0cm)IVSd1.03 (0.7-1.1cm) Aortic Root3.19 (2.2-3.7cm)LVDd6.50 (4.0-5.6cm) Aortic Cusp Exc.1.88 (1.5-2.0cm)PWd0.97 (0.7-1.1cm) IVSs1.19 cmFS (%) 38 % LVDs4.03 (2.0-3.8cm)PWs1.22 cm Aortic Valve AoV Peak Pdizapbc859.9cm/sAoV VTI24.9cmAO Peak GR.8mmHg LVOT Peak Ftexyqcw557.4cm/Max Mean GR.4mmHg Mitral Valve MV E Retukwfz55.5cm/sMV DECEL LONB235vwTC A Oiyuuapj54.1cm/s MV UXL02ioT/A ratio0.7MVA (PHT)3.81cm2 TDI E/Lateral E'0.0E/Medial E'0.0 LEFT VENTRICLE The left ventricle is normal size. There is normal left ventricular wall thickness. The left ventricular systolic function is normal. The estimated ejection fraction is 60-65% No regional wall motion abnormalities noted.. Transmitral Doppler flow pattern is Grade I-abnormal relaxation pattern. No left ventricle thrombus noted on this study. There is no ventricular septal defect visualized. There is no left ventricular aneurysm. There is no mass noted in the left ventricle. RIGHT VENTRICLE The right ventricle is normal size. There is normal right ventricular wall thickness. The right ventricular systolic function is normal. ATRIA The left atrium is mildly dilated. The right atrium size is normal. The interatrial septum is intact with no evidence for an atrial septal defect. AORTIC VALVE The aortic valve is normal in structure. No aortic regurgitation is present. There is no aortic valvular stenosis. There is no aortic valvular vegetation. MITRAL VALVE The mitral valve is normal in structure. There is no evidence of mitral valve prolapse. There is no mitral valve stenosis. There is no mitral valve regurgitation noted. TRICUSPID VALVE The tricuspid valve is normal in structure. There is no tricuspid valve regurgitation noted. There is no tricuspid valve prolapse or vegetation. There is no tricuspid valve stenosis. PULMONIC VALVE The pulmonary valve is normal in structure. There is no pulmonic valvular regurgitation. There is no pulmonic valvular stenosis. GREAT VESSELS The aortic root is normal in size. The ascending aorta is normal in size. The pulmonary artery is normal. The IVC is normal in size and collapses >50% with inspiration. PERICARDIAL EFFUSION There is no pericardial effusion. There is no pleural effusion. <Conclusion> The estimated ejection fraction is 60-65% Transmitral Doppler flow pattern is Grade I-abnormal relaxation pattern. The left atrium is mildly dilated. There is no tricuspid valve regurgitation noted.
[2019-02-19] MEDS: Sodium Chloride 0.9% 1,000 ML IV SCH (03:19)
[2019-02-19] MEDS: Piperacillin/Tazobact 3.375 GM in Sodium Chloride 0.9% 100 ML IVPB SCH ×2 (03:23→09:10)
[2019-02-19 05:41] LABS: HEMOGLOBIN 12.1 g/dL (12.0-18.0); MEAN CELL VOLUME 97.5 fl (80.0-94.0); MEAN CORPUSCULAR HGB CONC 32.8 g/dL (33.0-37.0); RBC 3.78 Mil/uL (4.40-5.90); RED CELL DISTRIBUTION WIDTH 13.3 % (11.5-14.5); WHITE BLOOD COUNT 16.4 K/uL (4.8-10.8)
[2019-02-19 06:26] LABS: BLOOD UREA NITROGEN 24 mg/dl (9-20); CALCIUM 8.8 mg/dL (8.4-10.2); GFR NON-AFRICAN AMERICAN > 60
[2019-02-19] MEDS ORDERED: Potassium Chloride 20 mEq ER Tab PO ONE (07:41)
[2019-02-19] MEDS: Albuterol-Ipratrop 3 mg / 0.5 (3 ml) UD INH SCH ×2 (07:48→11:55)
[2019-02-19 08:16] VITALS: RESP 18
[2019-02-19] MEDS ORDERED: MethylPREDNISolone 40 mg Vial IVP SCH (09:00)
[2019-02-19] MEDS ORDERED: diltiaZEM 240 mg/24 Hours CD Cap PO SCH (09:00)
[2019-02-19] MEDS ORDERED: methylPREDNISolone 30 MG in Sodium Chloride 0.9% 50 ML IV SCH (09:00)
[2019-02-19] MEDS: Enoxaparin 40 mg Syringe SC SCH (09:04)
[2019-02-19] MEDS: Pantoprazole 40 mg EC Tab PO SCH (09:05)
[2019-02-19] MEDS: Multivitamin With Minerals Tab PO SCH (09:05)
[2019-02-19] MEDS: Tiotropium 18 mcg Cap For Inhalation IH SCH (09:07)
--- NOTE | 2019-02-19 09:46 | CP.PCM.PN ---
Subjective - Date & Time of Evaluation Date of Evaluation: 02/19/19 Time of Evaluation: 09:46 - Subjective Subjective: The patient waqs seen on rounds in telemetry. His vital signs have remained stable and he continues to be afebrile. Leukocytosis is decreasing, oxygenation is good with standard nasal canula. He has no complaints of chest pain or SOB. Breath sounds are diminished bilaterally, equally. Scattered sonorous rhonchi in both lungs. Few medium rales scattered bilaterally as well. No audible wheezes or bronchial breath sounds. No dependant edema or cyanosis. Agree, patient is stable and may be discharged to TCU for continued care. Steroids will be changed to PO Medrol 12MG daily. Objective - Vital Signs/Intake and Output Vital Signs (last 24 hours): Temp Pulse Resp BP Pulse Ox 98.1 F 88 18 174/69 H 92 L 02/19/19 08:16 02/19/19 09:25 02/19/19 08:16 02/19/19 09:25 02/19/19 08:16 Intake and Output: 02/18/19 02/19/19 23:59 11:59 Intake Total 2420 Balance 2420 - Medications Medications: Current Medications Albuterol Sulfate (Albuterol 0.083% Inhal Svitlana (2.5 Mg/3 Ml) Ud) 2.5 mg INH RQ4 PRN PRN Reason: Shortness of Breath Albuterol/Ipratropium (Duoneb 3 Mg/0.5 Mg (3 Ml) Ud) 3 ml INH RQID [facility] Last Admin: 02/19/19 07:48 Dose: 3 ml Diltiazem HCl (Cardizem Cd) 240 mg PO DAILY [facility] Last Admin: 02/19/19 09:25 Dose: 240 mg Docusate Sodium (Colace) 100 mg PO BID PRN PRN Reason: Constipation Enoxaparin Sodium (Lovenox) 40 mg SC DAILY [facility]; Protocol Last Admin: 02/19/19 09:04 Dose: 40 mg Fluticasone Propionate (Flonase) 2 spr BENJAMIN DAILY [facility] Last Admin: 02/19/19 09:05 Dose: 2 spr Hydrochlorothiazide (Microzide) 12.5 mg PO DAILY [facility] Last Admin: 02/19/19 09:05 Dose: 12.5 mg Vancomycin HCl 1 gm/ Sodium (Chloride) 250 mls @ 166.667 mls/hr IVPB Q12 [facility]; Protocol Last Admin: 02/19/19 09:26 Dose: 166.667 mls/hr Piperacillin Sod/Tazobactam (Sod 3.375 gm/ Sodium Chloride) 100 mls @ 100 mls/hr IVPB Q6 [facility]; Protocol Last Admin: 02/19/19 09:10 Dose: 100 mls/hr Lisinopril (Zestril) 20 mg PO DAILY [facility] Last Admin: 02/19/19 09:06 Dose: 20 mg Methylprednisolone (Solu-Medrol) 30 mg IVP DAILY [facility] Last Admin: 02/19/19 09:06 Dose: 30 mg Multivitamins/Minerals (Therapeutic-M Tab) 1 tab PO DAILY [facility] Last Admin: 02/19/19 09:05 Dose: 1 tab Pantoprazole Sodium (Protonix Ec Tab) 40 mg PO DAILY [facility] Last Admin: 02/19/19 09:05 Dose: 40 mg Tiotropium [place] (Spiriva) 18 mcg IH DAILY [facility] Last Admin: 02/19/19 09:07 Dose: 18 mcg - Labs Labs: 02/19/19 04:25 02/19/19 04:25 PT 14.7 Seconds (9.8-13.1) H 02/15/19 13:45 INR 1.3 02/15/19 13:45 APTT 27.3 Seconds (25.6-37.1) 02/15/19 13:45 Assessment and Plan (1) Multifocal pneumonia Status: Acute (2) Sepsis Status: Acute (3) COPD exacerbation Status: Acute
--- NOTE | 2019-02-19 11:56 | CP.PCM.DIS ---
<Mattie Chen - Last Filed: 02/19/19 13:35> Provider - Provider Date of Admission: 02/15/19 13:53 Attending physician: Zaki Leon MD Consults: 02/15/19 14:51 Pulmonology Consult Stat Comment: Consulting Provider: Fei Matos Consulting Physician: Fei Matos Reason for Consult: COPD, Multifocal Pneumonia 02/17/19 13:57 Palliative Care Consult Routine Comment: Consulting Provider: Tahmina Harper Physician Instructions: Reason For Exam: COPD exacerbation Time Spent in preparation of Discharge (in minutes): 45 Hospital Course - Lab Results Lab Results: Micro Results 02/15/19 12:45 Blood-Venous Blood Culture - Preliminary NO GROWTH AFTER 3 DAYS 02/15/19 13:15 Blood-Venous Blood Culture - Preliminary NO GROWTH AFTER 3 DAYS 02/17/19 13:14 Sputum Gram Stain - Final Most Recent Lab Values WBC 16.4 K/uL (4.8-10.8) H 02/19/19 04:25 RBC 3.78 Mil/uL (4.40-5.90) L 02/19/19 04:25 Hgb 12.1 g/dL (12.0-18.0) 02/19/19 04:25 Hct 36.8 % (35.0-51.0) 02/19/19 04:25 MCV 97.5 fl (80.0-94.0) H 02/19/19 04:25 MCH 32.0 pg (27.0-31.0) H 02/19/19 04:25 MCHC 32.8 g/dL (33.0-37.0) L 02/19/19 04:25 RDW 13.3 % (11.5-14.5) 02/19/19 04:25 Plt Count 355 K/uL (130-400) 02/19/19 04:25 MPV 9.1 fl (7.2-11.7) 02/17/19 04:25 Neut % (Auto) 95.2 % (50.0-75.0) H 02/17/19 04:25 Lymph % (Auto) 3.0 % (20.0-40.0) L 02/17/19 04:25 [place] % (Auto) 1.6 % (0.0-10.0) 02/17/19 04:25 Eos % (Auto) 0.0 % (0.0-4.0) 02/17/19 04:25 Baso % (Auto) 0.2 % (0.0-2.0) 02/17/19 04:25 Neut # (Auto) 30.7 K/uL (1.8-7.0) H 02/17/19 04:25 Lymph # (Auto) 1.0 K/uL (1.0-4.3) 02/17/19 04:25 [place] # (Auto) 0.5 K/uL (0.0-0.8) 02/17/19 04:25 Eos # (Auto) 0.0 K/uL (0.0-0.7) 02/17/19 04:25 Baso # (Auto) 0.1 K/uL (0.0-0.2) 02/17/19 04:25 Total Counted Cancelled 02/17/19 04:25 Neutrophils % (Manual) 84 % (42-75) H 02/16/19 08:25 Band Neutrophils % 2 % (0-2) 02/16/19 08:25 Lymphocytes % (Manual) 9 % (20-50) L 02/16/19 08:25 Reactive Lymphs % Cancelled 02/17/19 04:25 Monocytes % (Manual) 5 % (0-10) 02/16/19 08:25 Eosinophils % (Manual) 2 % (0-7) 02/15/19 13:15 Basophils % (Manual) Cancelled 02/17/19 04:25 Metamyelocytes % Cancelled 02/17/19 04:25 Myelocytes % Cancelled 02/17/19 04:25 Promyelocytes % Cancelled 02/17/19 04:25 Blast Cells % Cancelled 02/17/19 04:25 Plasma Cell % (Manual) Cancelled 02/17/19 04:25 Nucleated RBC % Cancelled 02/17/19 04:25 Hypersegmented Polys Cancelled 02/17/19 04:25 Smudge Cells Cancelled 02/17/19 04:25 Toxic Granulation Cancelled 02/17/19 04:25 Dohle Bodies Cancelled 02/17/19 04:25 Braden Rods Cancelled 02/17/19 04:25 Platelet Estimate Normal (NORMAL) 02/16/19 08:25 Plt Clumps, EDTA Cancelled 02/17/19 04:25 Large Platelets Cancelled 02/17/19 04:25 Giant Platelets Cancelled 02/17/19 04:25 RBC Morphology Normal (NORMAL) 02/16/19 08:25 Polychromasia Cancelled 02/17/19 04:25 Hypochromasia (manual) Cancelled 02/17/19 04:25 Poikilocytosis (manual Cancelled 02/17/19 04:25 Basophilic Stippling Cancelled 02/17/19 04:25 Anisocytosis (manual) Cancelled 02/17/19 04:25 Microcytosis (manual) Cancelled 02/17/19 04:25 Macrocytosis (manual) Cancelled 02/17/19 04:25 Spherocytes Cancelled 02/17/19 04:25 Sickle Cells Cancelled 02/17/19 04:25 Target Cells Cancelled 02/17/19 04:25 Tear Drop Cells Cancelled 02/17/19 04:25 Ovalocytes Cancelled 02/17/19 04:25 Stomatocytes Cancelled 02/17/19 04:25 Helmet Cells Cancelled 02/17/19 04:25 [place] Bodies Cancelled 02/17/19 04:25 Elisa Cells Cancelled 02/17/19 04:25 Acanthocytes (Spur) Cancelled 02/17/19 04:25 Rouleaux Cancelled 02/17/19 04:25 Schistocytes Cancelled 02/17/19 04:25 PT 14.7 Seconds (9.8-13.1) H 02/15/19 13:45 INR 1.3 02/15/19 13:45 APTT 27.3 Seconds (25.6-37.1) 02/15/19 13:45 pCO2 44 mm/Hg (35-45) 02/18/19 10:50 pO2 77 mm/Hg (80-100) L 02/18/19 10:50 HCO3 32.6 mmol/L (21-28) H 02/18/19 10:50 ABG pH 7.50 (7.35-7.45) H 02/18/19 10:50 ABG Total CO2 35.7 mmol/L (22-28) H 02/18/19 10:50 ABG O2 Saturation 98.1 % (95-98) H 02/18/19 10:50 ABG O2 Content 17.4 ML/dL (15-23) 02/18/19 10:50 ABG Base Excess 9.9 mmol/L (-2.0-3.0) H 02/18/19 10:50 ABG Hemoglobin 13.0 g/dL (11.7-17.4) 02/18/19 10:50 ABG Carboxyhemoglobin 1.7 % (0.5-1.5) H 02/18/19 10:50 POC ABG HHb (Measured) 1.8 % (0.0-5.0) 02/18/19 10:50 ABG Methemoglobin 1.5 % (0.0-3.0) 02/18/19 10:50 ABG O2 Capacity 17.7 mL/dL (16-24) 02/18/19 10:50 Jonathan Test Yes 02/18/19 10:50 VBG pH 7.42 (7.32-7.43) 02/15/19 13:25 VBG pCO2 59 mmHg (40-60) 02/15/19 13:25 VBG HCO3 32.3 mmol/L 02/15/19 13:25 VBG Total CO2 40.1 mmol/L (22-28) H 02/15/19 13:25 VBG O2 Sat (Calc) 40.3 % (40-65) 02/15/19 13:25 VBG Base Excess 11.4 mmol/L (0.0-2.0) H 02/15/19 13:25 VBG Potassium 3.4 mmol/L (3.6-5.2) L 02/15/19 13:25 A-a O2 Difference 296.0 mm/Hg 02/18/19 10:50 Hgb O2 Saturation 94.9 % (95.0-98.0) L 02/18/19 10:50 Sodium 139.0 mmol/L (132-148) 02/15/19 13:25 Chloride 98.0 mmol/L (98-107) 02/15/19 13:25 Glucose 176 mg/dL (75-110) H 02/15/19 13:25 Lactate 1.8 mmol/L (0.7-2.1) 02/15/19 13:25 Liter Flow 15 02/16/19 07:40 Vent Mode Hfnc 02/16/19 07:40 FiO2 60.0 % 02/18/19 10:50 Sodium 138 mmol/l (132-148) 02/19/19 04:25 Potassium 3.5 MMOL/L (3.6-5.0) L 02/19/19 04:25 Chloride 98 mmol/L (98-107) 02/19/19 04:25 Carbon Dioxide 36 mmol/L (22-30) H 02/19/19 04:25 Anion Gap 8 (10-20) L 02/19/19 04:25 BUN 24 mg/dl (9-20) H 02/19/19 04:25 Creatinine 0.8 mg/dl (0.8-1.5) 02/19/19 04:25 Est GFR ( Amer) > 60 02/19/19 04:25 Est GFR (Non-Af Amer) > 60 02/19/19 04:25 POC Glucose (mg/dL) 181 mg/dL (65-110) H 02/19/19 11:18 Random Glucose 139 mg/dL (75-110) H 02/19/19 04:25 Hemoglobin A1c 5.9 % (4.2-6.5) 02/16/19 05:24 Calcium 8.8 mg/dL (8.4-10.2) 02/19/19 04:25 Total Bilirubin 1.1 mg/dl (0.2-1.3) 02/15/19 13:15 AST 58 U/L (17-59) 02/15/19 13:15 ALT 57 U/L (21-72) 02/15/19 13:15 Alkaline Phosphatase 153 U/L (38-126) H D 02/15/19 13:15 Total Protein 7.7 G/DL (6.3-8.2) 02/15/19 13:15 Albumin 3.9 g/dL (3.5-5.0) 02/15/19 13:15 Globulin 3.7 gm/dL (2.2-3.9) 02/15/19 13:15 Albumin/Globulin Ratio 1.0 (1.0-2.1) 02/15/19 13:15 Venous Blood Potassium 3.4 mmol/L (3.6-5.2) L 02/15/19 13:25 Urine Color Yellow (YELLOW) 02/15/19 19:40 Urine Clarity Clear (Clear) 02/15/19 19:40 Urine pH 5.0 (5.0-8.0) 02/15/19 19:40 Ur Specific [place] 1.041 (1.003-1.030) H 02/15/19 19:40 Urine Protein Negative mg/dL (NEGATIVE) 02/15/19 19:40 Urine Glucose (UA) >=500 mg/dL (NEGATIVE) 02/15/19 19:40 Urine Ketones Trace mg/dL (NEGATIVE) 02/15/19 19:40 Urine Blood Negative (NEGATIVE) 02/15/19 19:40 Urine Nitrate Negative (NEGATIVE) 02/15/19 19:40 Urine Bilirubin Negative (NEGATIVE) 02/15/19 19:40 Urine Urobilinogen 0.2-1.0 mg/dL (0.2-1.0) 02/15/19 19:40 Ur Leukocyte Esterase Neg [place]/uL (Negative) 02/15/19 19:40 Urine RBC (Auto) 3 /hpf (0-3) 02/15/19 19:40 Urine Microscopic WBC < 1 /hpf (0-5) 02/15/19 19:40 Urine Bacteria Few (<OCC) H 02/15/19 19:40 Vancomycin Trough 12.7 ug/mL (5.0-10.0) H 02/17/19 06:15 Influenza Typ A,B (EIA) Negative for flu a/b (NEGATIVE) 02/15/19 13:15 Ur L.pneumophila Ag Negative (NEGATIVE) 02/16/19 15:00 Mycoplasma pneumon IgM Negative (NEGATIVE) 02/16/19 08:25 - Hospital Course Hospital Course: 73 y/o M with medhx of COPD & HTN presented to the ED complaining of increased sputum production x 7 days, admitted for further management of severe sepsis due to multifocal pneumonia. Patient has been improving on IV antibiotics. He was seen and examined this morning. Patient states he is feeling somewhat better. Will discharge to TCU for continuation of IV antibiotics for 1 week. Sepsis (criteria met on admission) -103 bpm, RR max- 26 BP_ 144/58 WBC- 18.3 lactate- 1.8 -source: CXR showed multifocal pneumonia s/p Stat dose of rocephin & azithro in ED -C/w vanco & zosyn day 4 -monitor saturation & RR -Vanco trough 12.7 - blood cultures shows no growth Acute hypoxic respiratory failure (likely due to multifocal pneumonia in setting of COPD) -Room air abg: po2 of 46; repeat abg on FI02 of 60% with po2 of 77L increased from intial abg on FIo2 of 660%- 64L - sputum culture: gram stain- no organisms; rare epithelial cells; moderate polymorphonuclear wbcs -Legionella & mycoplasma neg. -Strep pneumo antigen neg -Was on high flow; patient now on standard NC 3L with saturations maintaining in 90-92. COPD exacerbation (acute on chronic) -s/p STAT duoneb -C/w duoneb 3ml INH QID -C/w spiriva 18mcg IH QD -C/w medrol 12mg PO QD HTN (chronic) -C/w home meds zestril -C/w HCTZ DVT prophylaxis -Lovenox 40mg SC Discharge Exam - Head Exam Head Exam: ATRAUMATIC, NORMAL INSPECTION, NORMOCEPHALIC - ENT Exam ENT Exam: Mucous Membranes Dry - Respiratory Exam Respiratory Exam: Decreased Breath Sounds. absent: Respiratory Distress - Cardiovascular Exam Cardiovascular Exam: REGULAR RHYTHM, +S1, +S2 - GI/Abdominal Exam GI & Abdominal Exam: Normal Bowel Sounds, Soft. absent: Guarding, Rigid, Tenderness - Neurological Exam Neurological exam: Alert, Oriented x3 - Psychiatric Exam Psychiatric exam: Normal Mood - Skin Skin Exam: Dry Discharge Plan - Discharge Medications Prescriptions: Piperacillin/Tazobact 3.375 gm [Zosyn 3.375 in NS 100ml] 0 gm IV Q6 7 Days bag Vancomycin/0.9 % Sod Chloride [Vanco 1 Gram/250 ml-0.9% NaCl] 1 gm IV BID 7 Days #14 plast..bag - Follow Up Plan Condition: STABLE Disposition: REHAB FACILITY/REHAB UNIT Instructions: Pneumonia, Adult (DC), Sepsis, Adult (DC), Exacerbation of COPD (DC) <Cookie Girard - Last Filed: 02/20/19 15:31> Provider - Provider Date of Admission: 02/15/19 13:53 Attending physician: Zaki Leon MD Consults: 02/15/19 14:51 Pulmonology Consult Stat Comment: Consulting Provider: Fei Matos Consulting Physician: Fei Matos Reason for Consult: COPD, Multifocal Pneumonia 02/17/19 13:57 Palliative Care Consult Routine Comment: Consulting Provider: Tahmina Harper Physician Instructions: Reason For Exam: COPD exacerbation Hospital Course - Lab Results Lab Results: Micro Results 02/15/19 12:45 Blood-Venous Blood Culture - Final NO GROWTH AFTER 5 DAYS 02/15/19 12:45 Blood-Venous Gram Stain - Final TEST NOT PERFORMED 02/15/19 13:15 Blood-Venous Blood Culture - Final NO GROWTH AFTER 5 DAYS 02/15/19 13:15 Blood-Venous Gram Stain - Final TEST NOT PERFORMED 02/17/19 13:14 Sputum Gram Stain - Final 02/17/19 13:14 Sputum Sputum Culture - Final Escherichia Coli Most Recent Lab Values WBC 16.4 K/uL (4.8-10.8) H 02/19/19 04:25 RBC 3.78 Mil/uL (4.40-5.90) L 02/19/19 04:25 Hgb 12.1 g/dL (12.0-18.0) 02/19/19 04:25 Hct 36.8 % (35.0-51.0) 02/19/19 04:25 MCV 97.5 fl (80.0-94.0) H 02/19/19 04:25 MCH 32.0 pg (27.0-31.0) H 02/19/19 04:25 MCHC 32.8 g/dL (33.0-37.0) L 02/19/19 04:25 RDW 13.3 % (11.5-14.5) 02/19/19 04:25 Plt Count 355 K/uL (130-400) 02/19/19 04:25 MPV 9.1 fl (7.2-11.7) 02/17/19 04:25 Neut % (Auto) 95.2 % (50.0-75.0) H 02/17/19 04:25 Lymph % (Auto) 3.0 % (20.0-40.0) L 02/17/19 04:25 [place] % (Auto) 1.6 % (0.0-10.0) 02/17/19 04:25 Eos % (Auto) 0.0 % (0.0-4.0) 02/17/19 04:25 Baso % (Auto) 0.2 % (0.0-2.0) 02/17/19 04:25 Neut # (Auto) 30.7 K/uL (1.8-7.0) H 02/17/19 04:25 Lymph # (Auto) 1.0 K/uL (1.0-4.3) 02/17/19 04:25 [place] # (Auto) 0.5 K/uL (0.0-0.8) 02/17/19 04:25 Eos # (Auto) 0.0 K/uL (0.0-0.7) 02/17/19 04:25 Baso # (Auto) 0.1 K/uL (0.0-0.2) 02/17/19 04:25 Total Counted Cancelled 02/17/19 04:25 Neutrophils % (Manual) 84 % (42-75) H 02/16/19 08:25 Band Neutrophils % 2 % (0-2) 02/16/19 08:25 Lymphocytes % (Manual) 9 % (20-50) L 02/16/19 08:25 Reactive Lymphs % Cancelled 02/17/19 04:25 Monocytes % (Manual) 5 % (0-10) 02/16/19 08:25 Eosinophils % (Manual) 2 % (0-7) 02/15/19 13:15 Basophils % (Manual) Cancelled 02/17/19 04:25 Metamyelocytes % Cancelled 02/17/19 04:25 Myelocytes % Cancelled 02/17/19 04:25 Promyelocytes % Cancelled 02/17/19 04:25 Blast Cells % Cancelled 02/17/19 04:25 Plasma Cell % (Manual) Cancelled 02/17/19 04:25 Nucleated RBC % Cancelled 02/17/19 04:25 Hypersegmented Polys Cancelled 02/17/19 04:25 Smudge Cells Cancelled 02/17/19 04:25 Toxic Granulation Cancelled 02/17/19 04:25 Dohle Bodies Cancelled 02/17/19 04:25 Braden Rods Cancelled 02/17/19 04:25 Platelet Estimate Normal (NORMAL) 02/16/19 08:25 Plt Clumps, EDTA Cancelled 02/17/19 04:25 Large Platelets Cancelled 02/17/19 04:25 Giant Platelets Cancelled 02/17/19 04:25 RBC Morphology Normal (NORMAL) 02/16/19 08:25 Polychromasia Cancelled 02/17/19 04:25 Hypochromasia (manual) Cancelled 02/17/19 04:25 Poikilocytosis (manual Cancelled 02/17/19 04:25 Basophilic Stippling Cancelled 02/17/19 04:25 Anisocytosis (manual) Cancelled 02/17/19 04:25 Microcytosis (manual) Cancelled 02/17/19 04:25 Macrocytosis (manual) Cancelled 02/17/19 04:25 Spherocytes Cancelled 02/17/19 04:25 Sickle Cells Cancelled 02/17/19 04:25 Target Cells Cancelled 02/17/19 04:25 Tear Drop Cells Cancelled 02/17/19 04:25 Ovalocytes Cancelled 02/17/19 04:25 Stomatocytes Cancelled 02/17/19 04:25 Helmet Cells Cancelled 02/17/19 04:25 [place] Bodies Cancelled 02/17/19 04:25 [place] Cells Cancelled 02/17/19 04:25 Acanthocytes (Spur) Cancelled 02/17/19 04:25 Rouleaux Cancelled 02/17/19 04:25 Schistocytes Cancelled 02/17/19 04:25 PT 14.7 Seconds (9.8-13.1) H 02/15/19 13:45 INR 1.3 02/15/19 13:45 APTT 27.3 Seconds (25.6-37.1) 02/15/19 13:45 pCO2 44 mm/Hg (35-45) 02/18/19 10:50 pO2 77 mm/Hg (80-100) L 02/18/19 10:50 HCO3 32.6 mmol/L (21-28) H 02/18/19 10:50 ABG pH 7.50 (7.35-7.45) H 02/18/19 10:50 ABG Total CO2 35.7 mmol/L (22-28) H 02/18/19 10:50 ABG O2 Saturation 98.1 % (95-98) H 02/18/19 10:50 ABG O2 Content 17.4 ML/dL (15-23) 02/18/19 10:50 ABG Base Excess 9.9 mmol/L (-2.0-3.0) H 02/18/19 10:50 ABG Hemoglobin 13.0 g/dL (11.7-17.4) 02/18/19 10:50 ABG Carboxyhemoglobin 1.7 % (0.5-1.5) H 02/18/19 10:50 POC ABG HHb (Measured) 1.8 % (0.0-5.0) 02/18/19 10:50 ABG Methemoglobin 1.5 % (0.0-3.0) 02/18/19 10:50 ABG O2 Capacity 17.7 mL/dL (16-24) 02/18/19 10:50 Jonathan Test Yes 02/18/19 10:50 VBG pH 7.42 (7.32-7.43) 02/15/19 13:25 VBG pCO2 59 mmHg (40-60) 02/15/19 13:25 VBG HCO3 32.3 mmol/L 02/15/19 13:25 VBG Total CO2 40.1 mmol/L (22-28) H 02/15/19 13:25 VBG O2 Sat (Calc) 40.3 % (40-65) 02/15/19 13:25 VBG Base Excess 11.4 mmol/L (0.0-2.0) H 02/15/19 13:25 VBG Potassium 3.4 mmol/L (3.6-5.2) L 02/15/19 13:25 A-a O2 Difference 296.0 mm/Hg 02/18/19 10:50 Hgb O2 Saturation 94.9 % (95.0-98.0) L 02/18/19 10:50 Sodium 139.0 mmol/L (132-148) 02/15/19 13:25 Chloride 98.0 mmol/L (98-107) 02/15/19 13:25 Glucose 176 mg/dL (75-110) H 02/15/19 13:25 Lactate 1.8 mmol/L (0.7-2.1) 02/15/19 13:25 Liter Flow 15 02/16/19 07:40 Vent Mode Hfnc 02/16/19 07:40 FiO2 60.0 % 02/18/19 10:50 Sodium 138 mmol/l (132-148) 02/19/19 04:25 Potassium 3.5 MMOL/L (3.6-5.0) L 02/19/19 04:25 Chloride 98 mmol/L (98-107) 02/19/19 04:25 Carbon Dioxide 36 mmol/L (22-30) H 02/19/19 04:25 Anion Gap 8 (10-20) L 02/19/19 04:25 BUN 24 mg/dl (9-20) H 02/19/19 04:25 Creatinine 0.8 mg/dl (0.8-1.5) 02/19/19 04:25 Est GFR ( Amer) > 60 02/19/19 04:25 Est GFR (Non-Af Amer) > 60 02/19/19 04:25 POC Glucose (mg/dL) 181 mg/dL (65-110) H 02/19/19 11:18 Random Glucose 139 mg/dL (75-110) H 02/19/19 04:25 Hemoglobin A1c 5.9 % (4.2-6.5) 02/16/19 05:24 Calcium 8.8 mg/dL (8.4-10.2) 02/19/19 04:25 Total Bilirubin 1.1 mg/dl (0.2-1.3) 02/15/19 13:15 AST 58 U/L (17-59) 02/15/19 13:15 ALT 57 U/L (21-72) 02/15/19 13:15 Alkaline Phosphatase 153 U/L (38-126) H D 02/15/19 13:15 Total Protein 7.7 G/DL (6.3-8.2) 02/15/19 13:15 Albumin 3.9 g/dL (3.5-5.0) 02/15/19 13:15 Globulin 3.7 gm/dL (2.2-3.9) 02/15/19 13:15 Albumin/Globulin Ratio 1.0 (1.0-2.1) 02/15/19 13:15 Venous Blood Potassium 3.4 mmol/L (3.6-5.2) L 02/15/19 13:25 Urine Color Yellow (YELLOW) 02/15/19 19:40 Urine Clarity Clear (Clear) 02/15/19 19:40 Urine pH 5.0 (5.0-8.0) 02/15/19 19:40 Ur Specific [place] 1.041 (1.003-1.030) H 02/15/19 19:40 Urine Protein Negative mg/dL (NEGATIVE) 02/15/19 19:40 Urine Glucose (UA) >=500 mg/dL (NEGATIVE) 02/15/19 19:40 Urine Ketones Trace mg/dL (NEGATIVE) 02/15/19 19:40 Urine Blood Negative (NEGATIVE) 02/15/19 19:40 Urine Nitrate Negative (NEGATIVE) 02/15/19 19:40 Urine Bilirubin Negative (NEGATIVE) 02/15/19 19:40 Urine Urobilinogen 0.2-1.0 mg/dL (0.2-1.0) 02/15/19 19:40 Ur Leukocyte Esterase Neg [place]/uL (Negative) 02/15/19 19:40 Urine RBC (Auto) 3 /hpf (0-3) 02/15/19 19:40 Urine Microscopic WBC < 1 /hpf (0-5) 02/15/19 19:40 Urine Bacteria Few (<OCC) H 02/15/19 19:40 Vancomycin Trough 12.7 ug/mL (5.0-10.0) H 02/17/19 06:15 Influenza Typ A,B (EIA) Negative for flu a/b (NEGATIVE) 02/15/19 13:15 Ur L.pneumophila Ag Negative (NEGATIVE) 02/16/19 15:00 Mycoplasma pneumon IgM Negative (NEGATIVE) 02/16/19 08:25 Attending/Attestation - Attestation I have personally seen and examined this patient.: Yes I have fully participated in the care of the patient.: Yes I have reviewed all pertinent clinical information, including history, physical exam and plan: Yes Notes (Text): 02/20/19 15:31 This is a 73-year-old male with past medical history of COPD and hypertension, he was admitted for sepsis secondary to multifocal pneumonia. He was placed on vancomycin and Zosyn with appropriate response. He is to be discharged to TCU for continuation of antibiotics as well as physical therapy. Agree with findings and plan as above.
[2019-02-19 12:07] VITALS: BP 148/65; PULSE 78; TEMP 97.5; O2SAT 93
--- NOTE | 2019-02-20 13:31 | CP.PCM.CON ---
History of Present Illness - History of Present Illness History of Present Illness: Follow up consultation from acute medicine because of multifocal pneumonia with hypoxemia in a former cigarette smoker who has underlying COPD. He had been ill for approximately one week prior to presenting to the emergency room. He has done well with current antibiotic therapy and was able to stop using HFNC and has adequate oxygenation with standard nasal canula. He feels stronger and has been able to ambulate with the physical therapists but requires supplemental oxygen during activity. His coughing has subsided and there is no further sputum expectoration. He remains on parenteral antibiotics at this point because of the diffuse infiltrates which were seen on CT chest. Review of Systems - Review of Systems All systems: reviewed and no additional remarkable complaints except - Constitutional Constitutional: As Per HPI - Respiratory Respiratory: As Per HPI Past Patient History - Past Medical History & Family History Past Family History: Reviewed and not pertinent - Past Social History Smoking Status: Former Smoker Chewing Tobacco Use: No Cigar Use: No Alcohol: Social Drugs: Denies Home Situation {Lives}: Alone - CARDIAC Hx Hypertension: Yes - PULMONARY Hx Bronchitis: Yes Hx Chronic Obstructive Pulmonary Disease (COPD): Yes Hx Pneumonia: Yes - NEUROLOGICAL Hx Neurological Disorder: No - HEENT Other/Comment: multiple dental caries - RENAL Hx Chronic Kidney Disease: No - ENDOCRINE/METABOLIC Hx Endocrine Disorders: No - HEMATOLOGICAL/ONCOLOGICAL Hx Blood Disorders: No - INTEGUMENTARY Hx Dermatological Problems: No - MUSCULOSKELETAL/RHEUMATOLOGICAL Hx Falls: Yes - GASTROINTESTINAL Hx Gastrointestinal Disorders: No - GENITOURINARY/GYNECOLOGICAL Hx Prostate Problems: Yes (LUTS) - PSYCHIATRIC Hx Psychophysiologic Disorder: No - SURGICAL HISTORY Hx Surgeries: No - ANESTHESIA Hx Anesthesia: No Meds Home Medications: Home Medication List Medication Instructions Recorded Confirmed Type Albuterol 0.083% [Albuterol 0.083% 2.5 mg INH RQ4 PRN neb 02/19/19 Rx Inhal Svitlana (2.5 mg/3 ml) UD] Albuterol/Ipratropium [Duoneb 3 3 ml INH RQID neb 02/19/19 Rx mg/0.5 mg (3 ml) UD] Docusate [Colace] 100 mg PO BID PRN cap 02/19/19 Rx Enoxaparin [Lovenox] 40 mg SC DAILY syr 02/19/19 Rx Fluticasone Propionate [Flonase] 2 spr BENJAMIN DAILY bottle 02/19/19 Rx Pantoprazole [Protonix EC Tab] 40 mg PO DAILY ect 02/19/19 Rx Piperacillin/Tazobact 3.375 gm 0 gm IV Q6 7 Days bag 02/19/19 Rx [Zosyn 3.375 in NS 100ml] Sodium Chloride for Inhalation 4 ml IH ONCE PRN vial.neb 02/19/19 Rx [Sodium Chloride 3% for Inhalation] Vancomycin/0.9 % Sod Chloride 1 gm IV BID 7 Days #14 plast..bag 02/19/19 Rx [Vanco 1 Gram/250 ml-0.9% NaCl] diltiaZEM CD [Cardizem CD] 240 mg PO DAILY cap 02/19/19 Rx methylPREDNISolone [Medrol] 12 mg PO DAILY tab 02/19/19 Rx Allergies/Adverse Reactions: Allergies Allergy/AdvReac Type Severity Reaction Status Date / Time No Known Allergies Allergy Verified 02/19/19 14:05 Physical Exam - Additional Findings Additional findings: Seated in a bedside chair, appears comfortable. Using nasal canula oxygen at 2 LPM with SpO2 92%. No dependant edema of the legs, no cyanosis. Extremities are warm to touch and pink in color. Neck is supple and trachea is midline. Pharynx is mildly injected w/o exudate, multiple dental caries. No dullness on chest percussion, equal expansion. Breath sounds are diminished bilaterally w/o audible wheezes. Few scattered dry to medium rales are heard in both lungs. No bronchial breath sounds or egophony. Heart sounds are distant and rhythm is regular, no murmur. Abdomen is soft and non-tender with + bowel sounds. Results - Vital Signs Recent Vital Signs: Last Vital Signs Temp 97.5 F L 02/19/19 12:07 Pulse 78 02/19/19 12:07 Resp 18 02/19/19 12:07 BP 148/65 02/19/19 12:07 Pulse Ox 93 L 02/19/19 12:07 - Labs Result Diagrams: 02/19/19 04:25 02/19/19 04:25 Assessment & Plan (1) Multifocal pneumonia Status: Acute Priority: High (2) Sepsis Status: Acute Priority: High (3) COPD (chronic obstructive pulmonary disease) Status: Chronic Priority: High - Assessment and Plan (Free Text) Plan: Continue current medical regimen. Continue aerosol therapy. Physical and occupational therapy as able. Still requires supplemental oxygen via nasal canula. Will request follow up CT chest next week to insure clearing of the diffuse patchy infiltrates. Needs dental follow up as outpatient for these numerous caries.
--- NOTE | 2019-02-22 19:06 | PQF ---
PROVIDER RESPONSE TEXT: Flu negative; patient had pneumonia REVIEWER QUERY TEXT: Conflicting Documentation Clarification A single mention of :Current admission includes influenza with pneumonia : and Much of this pneumon ia appears to represent microaspiration of oral pharyngeal contents: appears in the Pulmonary progres s note of 02/18. Please document if the condition is: -- Confirmed and current -- Confirmed, treated and resolved -- Ruled out -- Other, please specify 02/15: Influenza Type A, B: negative The patient's Clinical Indicators include: -- Query created by: Rossy Gregg on 02/19/2019 1:13 PM Electronically signed by: Mattie Chen 02/22/2019 7:02 PM
== END 2019-02-19 13:43 | DRG 871 ==
LOC: H.ER 11:31 → H.ERHOLD 13:53 → H.TEL 20:47
DX: A41.9 Sepsis, unspecified organism (principal); J96.01 Acute respiratory failure with hypoxia; J15.9 Unspecified bacterial pneumonia; J69.0 Pneumonitis due to inhalation of food and vomit; J96.02 Acute respiratory failure with hypercapnia; J44.1 Chronic obstructive pulmonary disease with (acute) exacerbation; J44.0 Chronic obstructive pulmonary disease with (acute) lower respiratory infection; I10 Essential (primary) hypertension; Z51.5 Encounter for palliative care; Z87.01 Personal history of pneumonia (recurrent); Z87.891 Personal history of nicotine dependence; K02.9 Dental caries, unspecified; R65.20 Severe sepsis without septic shock; R73.9 Hyperglycemia, unspecified; T38.0X5A Adverse effect of glucocorticoids and synthetic analogues, initial encounter; Y92.9 Unspecified place or not applicable

== ENCOUNTER 2019-02-19 12:42 | Inpatient (IN) | payer OTHER ==
[2019-02-19 14:06] VITALS: BMI 26.2
[2019-02-19] MEDS ORDERED: Albuterol 0.083% Inhal Sol (2.5 mg/3 mL) UD INH PRN (15:01)
[2019-02-19] MEDS ORDERED: Patient's Own Med (Albuterol Sulfate 2 PUFF) IH PRN (15:01)
[2019-02-19] MEDS ORDERED: Albuterol HFA 90 mcg/actuation (8 g) INH PRN (15:59)
[2019-02-19] MEDS ORDERED: Piperacillin/Tazobact 3.375 gm Inj IVPB SCH (16:00)
[2019-02-19] MEDS ORDERED: Patient's Own Med (Vancomycin/0.9 % Sod Chloride [Vanco 1 Gram/250 Ml-0.9% Nacl] 1 GM) IV SCH (17:00)
[2019-02-19] MEDS: Piperacillin/Tazobact 3.375 GM in Sodium Chloride 0.9% 100 ML IVPB SCH ×2 (17:10→20:59)
[2019-02-19] MEDS: Albuterol-Ipratrop 3 mg / 0.5 (3 ml) UD INH SCH (19:14)
[2019-02-19] MEDS: FLUTICASONE PROPION/SALMETEROL 55-14 INHALER IH SCH (20:54)
[2019-02-20] MEDS: Piperacillin/Tazobact 3.375 GM in Sodium Chloride 0.9% 100 ML IVPB SCH ×4 (04:34→22:58)
[2019-02-20 06:43] LABS: BASO # 0.1 K/uL (0.0-0.2); BASO % 0.9 % (0.0-2.0); EOS # 0.2 K/uL (0.0-0.7); EOS % 1.4 % (0.0-4.0); HEMOGLOBIN 12.8 g/dL (12.0-18.0); LYMPH # 1.6 K/uL (1.0-4.3); LYMPH % 12.7 % (20.0-40.0); MEAN CELL VOLUME 96.9 fl (80.0-94.0); MEAN CORPUSCULAR HEMOGLOBIN 32.7 pg (27.0-31.0); MEAN CORPUSCULAR HGB CONC 33.8 g/dL (33.0-37.0); MEAN PLATELET VOLUME 8.1 fl (7.2-11.7); MONO # 0.5 K/uL (0.0-0.8); MONO % 3.9 % (0.0-10.0); NEUT # 10.3 K/uL (1.8-7.0); NEUT % 81.1 % (50.0-75.0); NRBC % 0.1 % (0.0-0.0); RBC 3.92 Mil/uL (4.40-5.90); RED CELL DISTRIBUTION WIDTH 13.2 % (11.5-14.5); WHITE BLOOD COUNT 12.7 K/uL (4.8-10.8)
[2019-02-20 06:52] LABS: BLOOD UREA NITROGEN 16 mg/dl (9-20); CALCIUM 8.8 mg/dL (8.4-10.2); GFR NON-AFRICAN AMERICAN > 60
[2019-02-20] MEDS: Albuterol-Ipratrop 3 mg / 0.5 (3 ml) UD INH SCH ×3 (07:51→11:35)
[2019-02-20] MEDS: Enoxaparin 40 mg Syringe SC SCH (08:23)
[2019-02-20] MEDS: Pantoprazole 40 mg EC Tab PO SCH (08:23)
[2019-02-20] MEDS: Multivitamin With Minerals Tab PO SCH (08:23)
[2019-02-20] MEDS: diltiaZEM 240 mg/24 Hours CD Cap PO SCH (08:24)
[2019-02-20] MEDS: Tiotropium 18 mcg Cap For Inhalation IH SCH (08:24)
[2019-02-20] MEDS: FLUTICASONE PROPION/SALMETEROL 55-14 INHALER IH SCH ×2 (08:26→20:51)
[2019-02-20] MEDS ORDERED: Patient's Own Med (Lisinopril/Hydrochlorothiazide [Lisinopril-Hctz 20-12.5 Mg Tab] 1 TAB) PO SCH (09:00)
--- NOTE | 2019-02-20 11:13 | CP.PCM.HP ---
<Aysha Ward - Last Filed: 02/20/19 11:32> History of Present Illness - History of Present Illness History of Present Illness: 73 y/o M with medhx of COPD & HTN presented to the ED complaining of increased sputum production x 7 days and was admitted for further management of severe sepsis due to multifocal pneumonia. Patient showed clinical improvement on IV antibiotics, admitted o TCU for continuation of IV antibiotics for 1 week and medical optimization. ROS: all other systems reviewed and negative unless otherwise noted in HPI. Present on Admission - Present on Admission Any Indicators Present on Admission: No Past Patient History - Past Social History Smoking Status: Former Smoker - CARDIAC Hx Cardiac Disorders: Yes Hx Hypertension: Yes - PULMONARY Hx Respiratory Disorders: Yes Hx Asthma: Yes Hx Chronic Obstructive Pulmonary Disease (COPD): Yes - NEUROLOGICAL Hx Neurological Disorder: No - HEENT Hx HEENT Problems: No - RENAL Hx Chronic Kidney Disease: No - ENDOCRINE/METABOLIC Hx Endocrine Disorders: No - HEMATOLOGICAL/ONCOLOGICAL Hx Blood Disorders: No - INTEGUMENTARY Hx Dermatological Problems: No - MUSCULOSKELETAL/RHEUMATOLOGICAL Hx Musculoskeletal Disorders: No Hx Falls: Yes (aug 2018) - GASTROINTESTINAL Hx Gastrointestinal Disorders: No - GENITOURINARY/GYNECOLOGICAL Hx Genitourinary Disorders: No - PSYCHIATRIC Hx Psychophysiologic Disorder: No Hx Substance Use: No - SURGICAL HISTORY Hx Surgeries: Yes Other/Comment: As per pt left leg sx more than 20 years ("for blood clot"); sx removal of lesion on face. - ANESTHESIA Hx Anesthesia: Yes Hx Anesthesia Reactions: No Hx Malignant Hyperthermia: No Meds Allergies/Adverse Reactions: Allergies Allergy/AdvReac Type Severity Reaction Status Date / Time No Known Allergies Allergy Verified 02/19/19 14:05 Physical Exam - Constitutional Appears: Non-toxic, No Acute Distress - Head Exam Head Exam: NORMAL INSPECTION - ENT Exam ENT Exam: Mucous Membranes Moist - Respiratory Exam Respiratory Exam: Decreased Breath Sounds. absent: Respiratory Distress - Cardiovascular Exam Cardiovascular Exam: REGULAR RHYTHM (transient tachy in low 90's) - GI/Abdominal Exam GI & Abdominal Exam: Soft. absent: Tenderness - Neurological Exam Neurological exam: Alert - Psychiatric Exam Psychiatric exam: Normal Affect, Normal Mood - Skin Skin Exam: Dry, Intact, Normal Color, Warm Results - Vital Signs Recent Vital Signs: Last Vital Signs Temp 98.0 F 02/20/19 08:03 Pulse 82 02/20/19 08:25 Resp 20 02/20/19 08:03 BP 163/71 H 02/20/19 08:25 Pulse Ox 93 L 02/20/19 08:03 - Labs Result Diagrams: 02/20/19 05:55 02/20/19 05:55 Labs: Laboratory Results - last 24 hr 02/19/19 02/19/19 02/20/19 16:13 20:43 05:00 WBC RBC Hgb Hct MCV MCH MCHC RDW Plt Count MPV Neut % (Auto) Lymph % (Auto) [place] % (Auto) Eos % (Auto) Baso % (Auto) Neut # (Auto) Lymph # (Auto) [place] # (Auto) Eos # (Auto) Baso # (Auto) Sodium Potassium Chloride Carbon Dioxide Anion Gap BUN Creatinine Est GFR ( Amer) Est GFR (Non-Af Amer) POC Glucose (mg/dL) 267 H 286 H 147 H Random Glucose Calcium 02/20/19 02/20/19 05:55 05:55 WBC 12.7 H RBC 3.92 L Hgb 12.8 Hct 38.0 MCV 96.9 H MCH 32.7 H MCHC 33.8 RDW 13.2 Plt Count 355 MPV 8.1 Neut % (Auto) 81.1 H Lymph % (Auto) 12.7 L [place] % (Auto) 3.9 Eos % (Auto) 1.4 Baso % (Auto) 0.9 Neut # (Auto) 10.3 H Lymph # (Auto) 1.6 [place] # (Auto) 0.5 Eos # (Auto) 0.2 Baso # (Auto) 0.1 Sodium 137 Potassium 3.7 Chloride 100 Carbon Dioxide 33 H Anion Gap 8 L BUN 16 Creatinine 0.6 L Est GFR ( Amer) > 60 Est GFR (Non-Af Amer) > 60 POC Glucose (mg/dL) Random Glucose 126 H Calcium 8.8 Assessment & Plan - Assessment and Plan (Free Text) Assessment: 73 y/o M with medhx of COPD & HTN initially admitted for further management of severe sepsis due to multifocal pneumonia, admitted to TCU for continuation of IV antibiotics for 1 week. Plan: Sepsis secondary to CAP -Sepsis resolved, c/w tx for CAP -CXR: multifocal pneumonia -C/w vanco & zosyn day 5 -monitor saturation & RR -Vanco trough 12.7 -Blood culture: no growth, Legionella & mycoplasma neg, Strep pneumo antigen neg -O2 NC 3L, SPO2 >93% COPD exacerbation (acute on chronic) -C/w duoneb 3ml INH QID -C/w spiriva 18mcg IH QD -C/w medrol 12mg PO QD HTN (chronic) -C/w home meds zestril -C/w HCTZ DVT prophylaxis -Lovenox 40mg SC <Cookie Girard - Last Filed: 02/20/19 14:54> Results - Vital Signs Recent Vital Signs: Last Vital Signs Temp 98.0 F 02/20/19 08:03 Pulse 82 02/20/19 08:25 Resp 20 02/20/19 08:03 BP 163/71 H 02/20/19 08:25 Pulse Ox 93 L 02/20/19 08:03 - Labs Result Diagrams: 02/20/19 05:55 02/20/19 05:55 Labs: Laboratory Results - last 24 hr 02/19/19 02/19/19 02/20/19 16:13 20:43 05:00 WBC RBC Hgb Hct MCV MCH MCHC RDW Plt Count MPV Neut % (Auto) Lymph % (Auto) [place] % (Auto) Eos % (Auto) Baso % (Auto) Neut # (Auto) Lymph # (Auto) [place] # (Auto) Eos # (Auto) Baso # (Auto) Sodium Potassium Chloride Carbon Dioxide Anion Gap BUN Creatinine Est GFR ( Amer) Est GFR (Non-Af Amer) POC Glucose (mg/dL) 267 H 286 H 147 H Random Glucose Calcium 02/20/19 02/20/19 05:55 05:55 WBC 12.7 H RBC 3.92 L Hgb 12.8 Hct 38.0 MCV 96.9 H MCH 32.7 H MCHC 33.8 RDW 13.2 Plt Count 355 MPV 8.1 Neut % (Auto) 81.1 H Lymph % (Auto) 12.7 L [place] % (Auto) 3.9 Eos % (Auto) 1.4 Baso % (Auto) 0.9 Neut # (Auto) 10.3 H Lymph # (Auto) 1.6 [place] # (Auto) 0.5 Eos # (Auto) 0.2 Baso # (Auto) 0.1 Sodium 137 Potassium 3.7 Chloride 100 Carbon Dioxide 33 H Anion Gap 8 L BUN 16 Creatinine 0.6 L Est GFR ( Amer) > 60 Est GFR (Non-Af Amer) > 60 POC Glucose (mg/dL) Random Glucose 126 H Calcium 8.8 Attending/Attestation - Attestation I have personally seen and examined this patient.: Yes I have fully participated in the care of the patient.: Yes I have reviewed all pertinent clinical information: Yes Notes (Text): 02/20/19 14:53 This is a 73-year-old male with a past medical history of hypertension and COPD recently admitted for multifocal pneumonia. Patient was initiated on vancomycin and Zosyn, is now admitted to TCU for continuation of antibiotics as well as physical therapy. He has no complaints at this time, is hemodynamically stable and in no acute distress.
--- NOTE | 2019-02-20 13:51 | CP.PCM.CON ---
History of Present Illness - History of Present Illness History of Present Illness: CONSULT WAS DONE TODAY AND PLACED IN EMR UNDER ANOTHER ACOUNT NUMBER IN ERROR. COPIED TO THIS ACCOUNT NUMBER. Follow up consultation from acute medicine because of multifocal pneumonia with hypoxemia in a former cigarette smoker who has underlying COPD. He had been ill for approximately one week prior to presenting to the emergency room. He has done well with current antibiotic therapy and was able to stop using HFNC and has adequate oxygenation with standard nasal canula. He feels stronger and has been able to ambulate with the physical therapists but requires supplemental oxygen during activity. His coughing has subsided and there is no further sputum expectoration. He remains on parenteral antibiotics at this point because of the diffuse infiltrates which were seen on CT chest. Review of Systems - Review of Systems All systems: reviewed and no additional remarkable complaints except - Constitutional Constitutional: As Per HPI - Respiratory Respiratory: As Per HPI Past Patient History - Past Medical History & Family History Past Family History: Reviewed and not pertinent - Past Social History Smoking Status: Former Smoker Chewing Tobacco Use: No Cigar Use: No Alcohol: Social Drugs: Denies Home Situation {Lives}: Alone - CARDIAC Hx Hypertension: Yes - PULMONARY Hx Bronchitis: Yes Hx Chronic Obstructive Pulmonary Disease (COPD): Yes Hx Pneumonia: Yes - NEUROLOGICAL Hx Neurological Disorder: No - HEENT Other/Comment: multiple dental caries - RENAL Hx Chronic Kidney Disease: No - ENDOCRINE/METABOLIC Hx Endocrine Disorders: No - HEMATOLOGICAL/ONCOLOGICAL Hx Blood Disorders: No - INTEGUMENTARY Hx Dermatological Problems: No - MUSCULOSKELETAL/RHEUMATOLOGICAL Hx Falls: Yes - GASTROINTESTINAL Hx Gastrointestinal Disorders: No - GENITOURINARY/GYNECOLOGICAL Hx Prostate Problems: Yes (LUTS) - PSYCHIATRIC Hx Psychophysiologic Disorder: No - SURGICAL HISTORY Hx Surgeries: No - ANESTHESIA Hx Anesthesia: No Meds Home Medications: Home Medication List Medication Instructions Recorded Confirmed Type Albuterol 0.083% [Albuterol 0.083% 2.5 mg INH RQ4 PRN neb 02/19/19 Rx Inhal Svitlana (2.5 mg/3 ml) UD] Albuterol/Ipratropium [Duoneb 3 3 ml INH RQID neb 02/19/19 Rx mg/0.5 mg (3 ml) UD] Docusate [Colace] 100 mg PO BID PRN cap 02/19/19 Rx Enoxaparin [Lovenox] 40 mg SC DAILY syr 02/19/19 Rx Fluticasone Propionate [Flonase] 2 spr BENJAMIN DAILY bottle 02/19/19 Rx Pantoprazole [Protonix EC Tab] 40 mg PO DAILY ect 02/19/19 Rx Piperacillin/Tazobact 3.375 gm 0 gm IV Q6 7 Days bag 02/19/19 Rx [Zosyn 3.375 in NS 100ml] Sodium Chloride for Inhalation 4 ml IH ONCE PRN vial.neb 02/19/19 Rx [Sodium Chloride 3% for Inhalation] Vancomycin/0.9 % Sod Chloride 1 gm IV BID 7 Days #14 plast..bag 02/19/19 Rx [Vanco 1 Gram/250 ml-0.9% NaCl] diltiaZEM CD [Cardizem CD] 240 mg PO DAILY cap 02/19/19 Rx methylPREDNISolone [Medrol] 12 mg PO DAILY tab 02/19/19 Rx Allergies/Adverse Reactions: Allergies Allergy/AdvReac Type Severity Reaction Status Date / Time No Known Allergies Allergy Verified 02/19/19 14:05 Physical Exam - Additional Findings Additional findings: Seated in a bedside chair, appears comfortable. Using nasal canula oxygen at 2 LPM with SpO2 92%. No dependant edema of the legs, no cyanosis. Extremities are warm to touch and pink in color. Neck is supple and trachea is midline. Pharynx is mildly injected w/o exudate, multiple dental caries. No dullness on chest percussion, equal expansion. Breath sounds are diminished bilaterally w/o audible wheezes. Few scattered dry to medium rales are heard in both lungs. No bronchial breath sounds or egophony. Heart sounds are distant and rhythm is regular, no murmur. Abdomen is soft and non-tender with + bowel sounds. Results - Vital Signs Recent Vital Signs: Last Vital Signs Temp 97.5 F L 02/19/19 12:07 Pulse 78 02/19/19 12:07 Resp 18 02/19/19 12:07 BP 148/65 02/19/19 12:07 Pulse Ox 93 L 02/19/19 12:07 - Labs Result Diagrams: 02/19/19 04:25 02/19/19 04:25 Assessment & Plan (1) Multifocal pneumonia Status: Acute Priority: High (2) Sepsis Status: Acute Priority: High (3) COPD (chronic obstructive pulmonary disease) Status: Chronic Priority: High - Assessment and Plan (Free Text) Plan: Continue current medical regimen. Continue aerosol therapy. Physical and occupational therapy as able. Still requires supplemental oxygen via nasal canula. Will request follow up CT chest next week to insure clearing of the diffuse patchy infiltrates. Needs dental follow up as outpatient for these numerous caries. Past Patient History - Past Social History Smoking Status: Former Smoker - CARDIAC Hx Cardiac Disorders: Yes Hx Hypertension: Yes - PULMONARY Hx Respiratory Disorders: Yes Hx Asthma: Yes Hx Chronic Obstructive Pulmonary Disease (COPD): Yes - NEUROLOGICAL Hx Neurological Disorder: No - HEENT Hx HEENT Problems: No - RENAL Hx Chronic Kidney Disease: No - ENDOCRINE/METABOLIC Hx Endocrine Disorders: No - HEMATOLOGICAL/ONCOLOGICAL Hx Blood Disorders: No - INTEGUMENTARY Hx Dermatological Problems: No - MUSCULOSKELETAL/RHEUMATOLOGICAL Hx Musculoskeletal Disorders: No Hx Falls: Yes (aug 2018) - GASTROINTESTINAL Hx Gastrointestinal Disorders: No - GENITOURINARY/GYNECOLOGICAL Hx Genitourinary Disorders: No - PSYCHIATRIC Hx Psychophysiologic Disorder: No Hx Substance Use: No - SURGICAL HISTORY Hx Surgeries: Yes Other/Comment: As per pt left leg sx more than 20 years ("for blood clot"); sx removal of lesion on face. - ANESTHESIA Hx Anesthesia: Yes Hx Anesthesia Reactions: No Hx Malignant Hyperthermia: No Meds Allergies/Adverse Reactions: Allergies Allergy/AdvReac Type Severity Reaction Status Date / Time No Known Allergies Allergy Verified 02/19/19 14:05 - Medications Medications: Current Medications Albuterol (Ventolin Hfa 90 Mcg/Actuation (8 G)) 2 puff INH RQ6 PRN PRN Reason: Shortness of Breath Albuterol/Ipratropium (Duoneb 3 Mg/0.5 Mg (3 Ml) Ud) 3 ml INH RQID [facility] Last Admin: 02/20/19 11:35 Dose: 3 ml Diltiazem HCl (Cardizem Cd) 240 mg PO DAILY [facility] Last Admin: 02/20/19 08:24 Dose: 240 mg Docusate Sodium (Colace) 100 mg PO BID PRN PRN Reason: Constipation Last Admin: 02/20/19 08:27 Dose: 100 mg Enoxaparin Sodium (Lovenox) 40 mg SC DAILY [facility]; Protocol Last Admin: 02/20/19 08:23 Dose: 40 mg Fluticasone Propionate (Flonase) 2 spr BENJAMIN DAILY [facility] Last Admin: 02/20/19 08:28 Dose: 2 spr Hydrochlorothiazide (Microzide) 12.5 mg PO DAILY [facility] Last Admin: 02/20/19 12:20 Dose: 12.5 mg Piperacillin Sod/Tazobactam (Sod 3.375 gm/ Sodium Chloride) 100 mls @ 100 mls/hr IVPB Q6 [facility]; Protocol Stop: 02/26/19 23:00 Last Admin: 02/20/19 10:00 Dose: 100 mls/hr Vancomycin HCl 1 gm/ Sodium (Chloride) 250 mls @ 166.667 mls/hr IVPB Q12 [facility] Stop: 02/26/19 21:00 Last Admin: 02/20/19 08:21 Dose: 166.667 mls/hr Lisinopril (Zestril) 20 mg PO DAILY [facility] Last Admin: 02/20/19 08:25 Dose: 20 mg Methylprednisolone (Medrol) 12 mg PO DAILY [facility] Last Admin: 02/20/19 08:24 Dose: 12 mg Multivitamins/Minerals (Therapeutic-M Tab) 1 tab PO DAILY [facility] Last Admin: 02/20/19 08:23 Dose: 1 tab Pantoprazole Sodium (Protonix Ec Tab) 40 mg PO DAILY [facility] Last Admin: 02/20/19 08:23 Dose: 40 mg Tiotropium [place] (Spiriva) 18 mcg IH DAILY [facility] Last Admin: 02/20/19 08:24 Dose: 18 mcg Results - Vital Signs Recent Vital Signs: Last Vital Signs Temp 98.0 F 02/20/19 08:03 Pulse 82 02/20/19 08:25 Resp 20 02/20/19 08:03 BP 163/71 H 02/20/19 08:25 Pulse Ox 93 L 02/20/19 08:03 - Labs Result Diagrams: 02/20/19 05:55 02/20/19 05:55 Labs: Laboratory Results - last 24 hr 02/19/19 02/19/19 02/20/19 16:13 20:43 05:00 WBC RBC Hgb Hct MCV MCH MCHC RDW Plt Count MPV Neut % (Auto) Lymph % (Auto) [place] % (Auto) Eos % (Auto) Baso % (Auto) Neut # (Auto) Lymph # (Auto) [place] # (Auto) Eos # (Auto) Baso # (Auto) Sodium Potassium Chloride Carbon Dioxide Anion Gap BUN Creatinine Est GFR ( Amer) Est GFR (Non-Af Amer) POC Glucose (mg/dL) 267 H 286 H 147 H Random Glucose Calcium 02/20/19 02/20/19 05:55 05:55 WBC 12.7 H RBC 3.92 L Hgb 12.8 Hct 38.0 MCV 96.9 H MCH 32.7 H MCHC 33.8 RDW 13.2 Plt Count 355 MPV 8.1 Neut % (Auto) 81.1 H Lymph % (Auto) 12.7 L [place] % (Auto) 3.9 Eos % (Auto) 1.4 Baso % (Auto) 0.9 Neut # (Auto) 10.3 H Lymph # (Auto) 1.6 [place] # (Auto) 0.5 Eos # (Auto) 0.2 Baso # (Auto) 0.1 Sodium 137 Potassium 3.7 Chloride 100 Carbon Dioxide 33 H Anion Gap 8 L BUN 16 Creatinine 0.6 L Est GFR ( Amer) > 60 Est GFR (Non-Af Amer) > 60 POC Glucose (mg/dL) Random Glucose 126 H Calcium 8.8 Assessment & Plan (1) Multifocal pneumonia Status: Acute Priority: High (2) Sepsis Status: Resolved Priority: High (3) COPD (chronic obstructive pulmonary disease) Status: Chronic Priority: High - Date & Time Date: 02/20/19 Time: 13:51
[2019-02-20] MEDS ORDERED: Albuterol 0.083% Inhal Sol (2.5 mg/3 mL) UD INH PRN (14:00)
[2019-02-21] MEDS: Piperacillin/Tazobact 3.375 GM in Sodium Chloride 0.9% 100 ML IVPB SCH ×3 (04:30→17:03)
[2019-02-21] MEDS: FLUTICASONE PROPION/SALMETEROL 55-14 INHALER IH SCH ×2 (08:32→20:33)
[2019-02-21] MEDS: diltiaZEM 240 mg/24 Hours CD Cap PO SCH (08:33)
[2019-02-21] MEDS: Pantoprazole 40 mg EC Tab PO SCH (08:34)
[2019-02-21] MEDS: Enoxaparin 40 mg Syringe SC SCH (08:34)
[2019-02-21] MEDS: Tiotropium 18 mcg Cap For Inhalation IH SCH (08:35)
[2019-02-21] MEDS: Multivitamin With Minerals Tab PO SCH (08:35)
[2019-02-22] MEDS: Piperacillin/Tazobact 3.375 GM in Sodium Chloride 0.9% 100 ML IVPB SCH ×4 (00:21→19:00)
[2019-02-22] MEDS: Enoxaparin 40 mg Syringe SC SCH (08:05)
[2019-02-22] MEDS: diltiaZEM 240 mg/24 Hours CD Cap PO SCH (08:07)
[2019-02-22] MEDS: Pantoprazole 40 mg EC Tab PO SCH (08:07)
[2019-02-22] MEDS: Tiotropium 18 mcg Cap For Inhalation IH SCH (08:08)
[2019-02-22] MEDS: FLUTICASONE PROPION/SALMETEROL 55-14 INHALER IH SCH ×2 (08:09→20:21)
[2019-02-22] MEDS: Multivitamin With Minerals Tab PO SCH (08:09)
--- NOTE | 2019-02-22 11:09 | CP.PCM.PN ---
Subjective - Date & Time of Evaluation Date of Evaluation: 02/22/19 Time of Evaluation: 11:06 - Subjective Subjective: Seen in the gym doing exercise. Claims he slept poorly last night because of noise on the unit. His vital signs have been stable, remains afebrile and well oxygenated. SpO2 during exercise this morning is 88%; nasal O2 increased to 3LPM. Will request follow up CT chest w/o contrast. Objective - Vital Signs/Intake and Output Vital Signs (last 24 hours): Temp Pulse Resp BP Pulse Ox 97.5 F L 81 18 149/66 95 02/22/19 08:24 02/22/19 08:24 02/22/19 08:24 02/22/19 08:24 02/22/19 08:24 - Medications Medications: Current Medications Albuterol Sulfate (Albuterol 0.083% Inhal Svitlana (2.5 Mg/3 Ml) Ud) 2.5 mg INH RQ4 PRN PRN Reason: Shortness of Breath Diltiazem HCl (Cardizem Cd) 240 mg PO DAILY [facility] Last Admin: 02/22/19 08:07 Dose: 240 mg Docusate Sodium (Colace) 100 mg PO BID PRN PRN Reason: Constipation Last Admin: 02/22/19 08:07 Dose: 100 mg Enoxaparin Sodium (Lovenox) 40 mg SC DAILY [facility]; Protocol Last Admin: 02/22/19 08:05 Dose: 40 mg Fluticasone Propionate (Flonase) 2 spr BENJAMIN DAILY [facility] Last Admin: 02/22/19 08:05 Dose: 2 spr Hydrochlorothiazide (Microzide) 12.5 mg PO DAILY [facility] Last Admin: 02/22/19 08:08 Dose: 12.5 mg Vancomycin HCl 1 gm/ Sodium (Chloride) 250 mls @ 166.667 mls/hr IVPB Q12 [facility] Stop: 02/26/19 21:00 Last Admin: 02/22/19 08:10 Dose: 166.667 mls/hr Piperacillin Sod/Tazobactam (Sod 3.375 gm/ Sodium Chloride) 100 mls @ 100 mls/hr IVPB 0000,0600,1200,1800 [facility]; Protocol Last Admin: 02/22/19 05:34 Dose: 100 mls/hr Lisinopril (Zestril) 20 mg PO DAILY [facility] Last Admin: 02/22/19 08:08 Dose: 20 mg Methylprednisolone (Medrol) 8 mg PO DAILY [facility] Multivitamins/Minerals (Therapeutic-M Tab) 1 tab PO DAILY [facility] Last Admin: 02/22/19 08:09 Dose: 1 tab Pantoprazole Sodium (Protonix Ec Tab) 40 mg PO DAILY [facility] Last Admin: 02/22/19 08:07 Dose: 40 mg Tiotropium [place] (Spiriva) 18 mcg IH DAILY [facility] Last Admin: 02/22/19 08:08 Dose: 18 mcg - Labs Labs: 02/20/19 05:55 02/20/19 05:55 Assessment and Plan (1) Multifocal pneumonia Status: Acute (2) COPD (chronic obstructive pulmonary disease) Status: Chronic
[2019-02-23] MEDS: Piperacillin/Tazobact 3.375 GM in Sodium Chloride 0.9% 100 ML IVPB SCH ×4 (00:02→18:18)
[2019-02-23 05:44] LABS: BLOOD UREA NITROGEN 22 mg/dl (9-20); CALCIUM 8.9 mg/dL (8.4-10.2); GFR NON-AFRICAN AMERICAN > 60
[2019-02-23 05:55] LABS: HEMOGLOBIN 13.5 g/dL (12.0-18.0); MEAN CELL VOLUME 97.1 fl (80.0-94.0); MEAN CORPUSCULAR HEMOGLOBIN 32.6 pg (27.0-31.0); MEAN CORPUSCULAR HGB CONC 33.6 g/dL (33.0-37.0); RBC 4.14 Mil/uL (4.40-5.90); RED CELL DISTRIBUTION WIDTH 13.4 % (11.5-14.5); WHITE BLOOD COUNT 10.2 K/uL (4.8-10.8)
[2019-02-23] MEDS: Enoxaparin 40 mg Syringe SC SCH (08:12)
[2019-02-23] MEDS: Multivitamin With Minerals Tab PO SCH (08:14)
[2019-02-23] MEDS: Tiotropium 18 mcg Cap For Inhalation IH SCH (08:14)
[2019-02-23] MEDS: diltiaZEM 240 mg/24 Hours CD Cap PO SCH (08:14)
[2019-02-23] MEDS: Pantoprazole 40 mg EC Tab PO SCH (08:15)
[2019-02-23] MEDS: FLUTICASONE PROPION/SALMETEROL 55-14 INHALER IH SCH ×2 (09:25→20:49)
--- NOTE | 2019-02-23 10:39 | CP.PCM.PN ---
Subjective - Date & Time of Evaluation Date of Evaluation: 02/23/19 Time of Evaluation: 10:33 - Subjective Subjective: Doing well on present regimen. Has remained afebrile. Leukocytosis has resolved. CT chest done yesterday showing improved, but not yet resolved infiltrates bilaterally. This is the eigth day of antibiotic therapy. He is doing well with physical therapy. Oxygen saturation is improved. He is anxious for discharge to home. Would continue another two days of parenteral antibiotics. At that time I will place him on PO cephalosporin and discharge. Would expect to complete three weeks of antibiotics in total. Objective - Vital Signs/Intake and Output Vital Signs (last 24 hours): Temp Pulse Resp BP Pulse Ox 97.9 F 78 18 122/56 L 95 02/23/19 07:44 02/23/19 08:14 02/23/19 07:44 02/23/19 08:14 02/23/19 07:44 - Medications Medications: Current Medications Albuterol Sulfate (Albuterol 0.083% Inhal Svitlana (2.5 Mg/3 Ml) Ud) 2.5 mg INH RQ4 PRN PRN Reason: Shortness of Breath Diltiazem HCl (Cardizem Cd) 240 mg PO DAILY [facility] Last Admin: 02/23/19 08:14 Dose: 240 mg Docusate Sodium (Colace) 100 mg PO BID PRN PRN Reason: Constipation Last Admin: 02/22/19 08:07 Dose: 100 mg Enoxaparin Sodium (Lovenox) 40 mg SC DAILY [facility]; Protocol Last Admin: 02/23/19 08:12 Dose: 40 mg Fluticasone Propionate (Flonase) 2 spr BENJAMIN DAILY [facility] Last Admin: 02/23/19 08:14 Dose: 2 spr Hydrochlorothiazide (Microzide) 12.5 mg PO DAILY [facility] Last Admin: 02/23/19 08:15 Dose: 12.5 mg Vancomycin HCl 1 gm/ Sodium (Chloride) 250 mls @ 166.667 mls/hr IVPB Q12 [facility] Stop: 02/26/19 21:00 Last Admin: 02/23/19 09:59 Dose: 166.667 mls/hr Piperacillin Sod/Tazobactam (Sod 3.375 gm/ Sodium Chloride) 100 mls @ 100 mls/hr IVPB 0000,0600,1200,1800 [facility]; Protocol Last Admin: 02/23/19 05:11 Dose: 100 mls/hr Lisinopril (Zestril) 20 mg PO DAILY [facility] Last Admin: 02/23/19 08:13 Dose: 20 mg Methylprednisolone (Medrol) 8 mg PO DAILY [facility] Last Admin: 02/23/19 08:12 Dose: 8 mg Multivitamins/Minerals (Therapeutic-M Tab) 1 tab PO DAILY [facility] Last Admin: 02/23/19 08:14 Dose: 1 tab Pantoprazole Sodium (Protonix Ec Tab) 40 mg PO DAILY [facility] Last Admin: 02/23/19 08:15 Dose: 40 mg Tiotropium [place] (Spiriva) 18 mcg IH DAILY [facility] Last Admin: 02/23/19 08:14 Dose: 18 mcg - Labs Labs: 02/23/19 04:20 02/23/19 04:20 Assessment and Plan (1) Multifocal pneumonia Status: Acute (2) COPD (chronic obstructive pulmonary disease) Status: Chronic
--- NOTE | 2019-02-23 12:18 | CP.PCM.PN ---
Subjective - Date & Time of Evaluation Date of Evaluation: 02/23/19 Time of Evaluation: 13:30 - Subjective Subjective: Patient seen and examined bedside. All chart and clinical data reviewed . Care resumed . Feeling better . Hemodynamically stable, afebrile Saturating 98 % on 3 L O2 via NC With minimal whitish sputum production Hemodynamically stable, afebrile \No acute issues overnight Objective - Vital Signs/Intake and Output Vital Signs (last 24 hours): Temp Pulse Resp BP Pulse Ox 97.9 F 78 18 122/56 L 95 02/23/19 07:44 02/23/19 08:14 02/23/19 07:44 02/23/19 08:14 02/23/19 07:44 - Medications Medications: Current Medications Albuterol Sulfate (Albuterol 0.083% Inhal Svitlana (2.5 Mg/3 Ml) Ud) 2.5 mg INH RQ4 PRN PRN Reason: Shortness of Breath Diltiazem HCl (Cardizem Cd) 240 mg PO DAILY [facility] Last Admin: 02/23/19 08:14 Dose: 240 mg Docusate Sodium (Colace) 100 mg PO BID PRN PRN Reason: Constipation Last Admin: 02/22/19 08:07 Dose: 100 mg Enoxaparin Sodium (Lovenox) 40 mg SC DAILY [facility]; Protocol Last Admin: 02/23/19 08:12 Dose: 40 mg Fluticasone Propionate (Flonase) 2 spr BENJAMIN DAILY [facility] Last Admin: 02/23/19 08:14 Dose: 2 spr Hydrochlorothiazide (Microzide) 12.5 mg PO DAILY [facility] Last Admin: 02/23/19 08:15 Dose: 12.5 mg Vancomycin HCl 1 gm/ Sodium (Chloride) 250 mls @ 166.667 mls/hr IVPB Q12 [facility] Stop: 02/26/19 21:00 Last Admin: 02/23/19 09:59 Dose: 166.667 mls/hr Piperacillin Sod/Tazobactam (Sod 3.375 gm/ Sodium Chloride) 100 mls @ 100 mls/hr IVPB 0000,0600,1200,1800 [facility]; Protocol Last Admin: 02/23/19 11:16 Dose: 100 mls/hr Lisinopril (Zestril) 20 mg PO DAILY [facility] Last Admin: 02/23/19 08:13 Dose: 20 mg Methylprednisolone (Medrol) 8 mg PO DAILY [facility] Stop: 02/24/19 23:59 Last Admin: 02/23/19 08:12 Dose: 8 mg Methylprednisolone (Medrol) 4 mg PO DAILY [facility] Multivitamins/Minerals (Therapeutic-M Tab) 1 tab PO DAILY [facility] Last Admin: 02/23/19 08:14 Dose: 1 tab Pantoprazole Sodium (Protonix Ec Tab) 40 mg PO DAILY [facility] Last Admin: 02/23/19 08:15 Dose: 40 mg Tiotropium [place] (Spiriva) 18 mcg IH DAILY [facility] Last Admin: 02/23/19 08:14 Dose: 18 mcg - Labs Labs: 02/23/19 04:20 02/23/19 04:20 - Constitutional Appears: Non-toxic, No Acute Distress - Head Exam Head Exam: ATRAUMATIC, NORMAL INSPECTION, NORMOCEPHALIC - Eye Exam Eye Exam: EOMI, Normal appearance, PERRL Pupil Exam: NORMAL ACCOMODATION - ENT Exam ENT Exam: Mucous Membranes Moist, Normal Exam - Neck Exam Neck Exam: Normal Inspection - Respiratory Exam Respiratory Exam: Clear to Ausculation Bilateral, NORMAL BREATHING PATTERN. absent: Rales, Rhonchi, Wheezes - Cardiovascular Exam Cardiovascular Exam: REGULAR RHYTHM, RRR, +S1, +S2. absent: JVD - GI/Abdominal Exam GI & Abdominal Exam: Soft, Normal Bowel Sounds. absent: Distended, Guarding, Tenderness, Rebound - Rectal Exam Rectal Exam: Deferred - Extremities Exam Extremities Exam: Full ROM, Normal Capillary Refill, Normal Inspection. absent: Pedal Edema - Back Exam Back Exam: NORMAL INSPECTION - Neurological Exam Neurological Exam: Alert, Awake, CN II-XII Intact, Oriented x3 - Psychiatric Exam Psychiatric exam: Normal Affect, Normal Mood - Skin Skin Exam: Dry, Intact, Normal Color, Warm Assessment and Plan - Assessment and Plan (Free Text) Assessment: 73 y/o M with PMH of COPD & HTN presented to the ED complaining of increased sputum production x 7 days and was admitted for further management of severe sepsis due to multifocal pneumonia. Patient showed clinical improvement on IV antibiotics, admitted to TCU for continuation of IV antibiotics for 1 week and medical optimization. At present in TCU feeling better on current treatment 1. Multifocal Pneumonia Pulmonary on board Continue O2 via NC Improving on Vanco and Zosyn Iv for 2 more days 2. COPD exacerbation pulmonary on board following On prednisone tapering dose continue Spiriva, O2 via NC and Fluticasone/salmeterol 3. Hypertension controlled Continue HCTZ, Lisinopril and cardizem 4. DVt prophylaxis SCD lovenox
[2019-02-24] MEDS: Piperacillin/Tazobact 3.375 GM in Sodium Chloride 0.9% 100 ML IVPB SCH ×4 (00:05→17:04)
[2019-02-24] MEDS: Tiotropium 18 mcg Cap For Inhalation IH SCH (09:09)
[2019-02-24] MEDS: Enoxaparin 40 mg Syringe SC SCH (09:09)
[2019-02-24] MEDS: Pantoprazole 40 mg EC Tab PO SCH (09:10)
[2019-02-24] MEDS: Multivitamin With Minerals Tab PO SCH (09:10)
[2019-02-24] MEDS: diltiaZEM 240 mg/24 Hours CD Cap PO SCH (09:11)
[2019-02-24] MEDS: FLUTICASONE PROPION/SALMETEROL 55-14 INHALER IH SCH ×2 (09:12→22:11)
--- NOTE | 2019-02-24 10:55 | CP.PCM.PN ---
Subjective - Date & Time of Evaluation Date of Evaluation: 02/24/19 Time of Evaluation: 10:53 - Subjective Subjective: Feels as though he is getting a URI. Still participating in physical therapy. Has progressed well and may be able to discharge tomorrow. Objective - Vital Signs/Intake and Output Vital Signs (last 24 hours): Temp Pulse Resp BP Pulse Ox 97.8 F 80 20 126/61 95 02/24/19 07:51 02/24/19 09:13 02/24/19 07:51 02/24/19 09:13 02/24/19 07:51 - Medications Medications: Current Medications Albuterol Sulfate (Albuterol 0.083% Inhal Svitlana (2.5 Mg/3 Ml) Ud) 2.5 mg INH RQ4 PRN PRN Reason: Shortness of Breath Diltiazem HCl (Cardizem Cd) 240 mg PO DAILY [facility] Last Admin: 02/24/19 09:11 Dose: 240 mg Docusate Sodium (Colace) 100 mg PO BID PRN PRN Reason: Constipation Last Admin: 02/22/19 08:07 Dose: 100 mg Enoxaparin Sodium (Lovenox) 40 mg SC DAILY [facility]; Protocol Last Admin: 02/24/19 09:09 Dose: 40 mg Fluticasone Propionate (Flonase) 2 spr BENJAMIN DAILY [facility] Last Admin: 02/24/19 09:11 Dose: 2 spr Hydrochlorothiazide (Microzide) 12.5 mg PO DAILY [facility] Last Admin: 02/24/19 09:10 Dose: 12.5 mg Vancomycin HCl 1 gm/ Sodium (Chloride) 250 mls @ 166.667 mls/hr IVPB Q12 [facility] Stop: 02/26/19 21:00 Last Admin: 02/24/19 09:16 Dose: 166.667 mls/hr Piperacillin Sod/Tazobactam (Sod 3.375 gm/ Sodium Chloride) 100 mls @ 100 mls/hr IVPB 0000,0600,1200,1800 [facility]; Protocol Last Admin: 02/24/19 06:00 Dose: 100 mls/hr Lisinopril (Zestril) 20 mg PO DAILY [facility] Last Admin: 02/24/19 09:13 Dose: 20 mg Methylprednisolone (Medrol) 8 mg PO DAILY [facility] Stop: 02/24/19 23:59 Last Admin: 02/24/19 09:11 Dose: 8 mg Methylprednisolone (Medrol) 4 mg PO DAILY [facility] Multivitamins/Minerals (Therapeutic-M Tab) 1 tab PO DAILY [facility] Last Admin: 02/24/19 09:10 Dose: 1 tab Pantoprazole Sodium (Protonix Ec Tab) 40 mg PO DAILY [facility] Last Admin: 02/24/19 09:10 Dose: 40 mg Tiotropium [place] (Spiriva) 18 mcg IH DAILY [facility] Last Admin: 02/24/19 09:09 Dose: 18 mcg - Labs Labs: 02/23/19 04:20 02/23/19 04:20 Assessment and Plan (1) Multifocal pneumonia Status: Acute (2) COPD (chronic obstructive pulmonary disease) Status: Chronic
[2019-02-25] MEDS: Piperacillin/Tazobact 3.375 GM in Sodium Chloride 0.9% 100 ML IVPB SCH ×4 (00:31→17:47)
[2019-02-25] MEDS: Tiotropium 18 mcg Cap For Inhalation IH SCH (08:43)
[2019-02-25] MEDS: FLUTICASONE PROPION/SALMETEROL 55-14 INHALER IH SCH ×2 (08:43→21:36)
[2019-02-25] MEDS: Enoxaparin 40 mg Syringe SC SCH (08:44)
[2019-02-25] MEDS: Multivitamin With Minerals Tab PO SCH (08:44)
[2019-02-25] MEDS: Pantoprazole 40 mg EC Tab PO SCH (08:45)
[2019-02-25] MEDS: diltiaZEM 240 mg/24 Hours CD Cap PO SCH (08:45)
--- NOTE | 2019-02-25 10:33 | CP.PCM.PN ---
Subjective - Date & Time of Evaluation Date of Evaluation: 02/25/19 Time of Evaluation: 10:31 - Subjective Subjective: Seen on rounds in the transitional care unit. He has continued to do well with physical therapy. He does manifest shortness of breath with activity, but otherwise has done well. His vital signs have remained stable throughout his time in TCU. Overnight recorded oximetry shows >23 minutes of oxygen desaturation with a low level of 84%. On exam the breath sounds are diminished bilaterally without audible wheezing. Few scattered dry rales are present in the lower lobes. No bronchial breath sounds. Heart sounds are distant, rhythm is regular. Will discontinue parenteral antibiotics and plan for PO cephalosporin at home for an additional 10 days. All maintenance medications will remain the same as pre-hospitalization. Home oxygen will be necessary via nasal canula at 2LPM indefinitely. Objective - Vital Signs/Intake and Output Vital Signs (last 24 hours): Temp Pulse Resp BP Pulse Ox 97.3 F L 93 H 18 105/61 92 L 02/25/19 07:56 02/25/19 08:45 02/25/19 07:56 02/25/19 08:45 02/25/19 07:56 - Medications Medications: Current Medications Albuterol Sulfate (Albuterol 0.083% Inhal Svitlana (2.5 Mg/3 Ml) Ud) 2.5 mg INH RQ4 PRN PRN Reason: Shortness of Breath Diltiazem HCl (Cardizem Cd) 240 mg PO DAILY [facility] Last Admin: 02/25/19 08:45 Dose: 240 mg Docusate Sodium (Colace) 100 mg PO BID PRN PRN Reason: Constipation Last Admin: 02/22/19 08:07 Dose: 100 mg Enoxaparin Sodium (Lovenox) 40 mg SC DAILY [facility]; Protocol Last Admin: 02/25/19 08:44 Dose: 40 mg Fluticasone Propionate (Flonase) 2 spr BENJAMIN DAILY [facility] Last Admin: 02/25/19 08:44 Dose: 2 spr Hydrochlorothiazide (Microzide) 12.5 mg PO DAILY [facility] Last Admin: 02/25/19 08:46 Dose: 12.5 mg Vancomycin HCl 1 gm/ Sodium (Chloride) 250 mls @ 166.667 mls/hr IVPB Q12 [facility] Stop: 02/26/19 21:00 Last Admin: 02/25/19 08:41 Dose: 166.667 mls/hr Piperacillin Sod/Tazobactam (Sod 3.375 gm/ Sodium Chloride) 100 mls @ 100 mls/hr IVPB 0000,0600,1200,1800 [facility]; Protocol Last Admin: 02/25/19 05:39 Dose: 100 mls/hr Lisinopril (Zestril) 20 mg PO DAILY [facility] Last Admin: 02/25/19 08:45 Dose: 20 mg Methylprednisolone (Medrol) 4 mg PO DAILY [facility] Last Admin: 02/25/19 08:45 Dose: 4 mg Multivitamins/Minerals (Therapeutic-M Tab) 1 tab PO DAILY [facility] Last Admin: 02/25/19 08:44 Dose: 1 tab Pantoprazole Sodium (Protonix Ec Tab) 40 mg PO DAILY [facility] Last Admin: 02/25/19 08:45 Dose: 40 mg Tiotropium [place] (Spiriva) 18 mcg IH DAILY [facility] Last Admin: 02/25/19 08:43 Dose: 18 mcg - Labs Labs: 02/23/19 04:20 02/23/19 04:20 Assessment and Plan (1) Multifocal pneumonia Status: Acute (2) COPD (chronic obstructive pulmonary disease) Status: Chronic (3) Hypoxemia requiring supplemental oxygen Status: Chronic
[2019-02-26 08:15] VITALS: PULSE 92; RESP 18; TEMP 97.4; O2SAT 94
[2019-02-26] MEDS: FLUTICASONE PROPION/SALMETEROL 55-14 INHALER IH SCH (08:42)
[2019-02-26] MEDS: Pantoprazole 40 mg EC Tab PO SCH (08:43)
[2019-02-26] MEDS: Tiotropium 18 mcg Cap For Inhalation IH SCH (08:43)
[2019-02-26] MEDS: Multivitamin With Minerals Tab PO SCH (08:43)
[2019-02-26] MEDS: diltiaZEM 240 mg/24 Hours CD Cap PO SCH (08:43)
[2019-02-26] MEDS: Enoxaparin 40 mg Syringe SC SCH (08:43)
[2019-02-26 08:47] VITALS: BP 112/64
[2019-02-26] MEDS ORDERED: Cefdinir 300 MG CAP PO SCH (09:00)
--- NOTE | 2019-02-26 11:49 | CP.PCM.PN ---
Subjective - Date & Time of Evaluation Date of Evaluation: 02/26/19 Time of Evaluation: 11:47 - Subjective Subjective: Patient for discharge presently. All medications reconciled. Patient will continue all of his routine maintenance medications plus Cefdinir 300MG BID for 10 days. Instructed to call my office on Friday to schedule followup visit. New Rx was sent to his pharmacy electronically. Objective - Vital Signs/Intake and Output Vital Signs (last 24 hours): Temp Pulse Resp BP Pulse Ox 97.4 F L 92 H 18 112/64 94 L 02/26/19 08:14 02/26/19 08:43 02/26/19 08:14 02/26/19 08:43 02/26/19 08:14 - Medications Medications: Current Medications Albuterol Sulfate (Albuterol 0.083% Inhal Svitlana (2.5 Mg/3 Ml) Ud) 2.5 mg INH RQ4 PRN PRN Reason: Shortness of Breath Cefdinir (Omnicef) 300 mg PO BID [facility] Last Admin: 02/26/19 08:42 Dose: 300 mg Diltiazem HCl (Cardizem Cd) 240 mg PO DAILY [facility] Last Admin: 02/26/19 08:43 Dose: 240 mg Docusate Sodium (Colace) 100 mg PO BID PRN PRN Reason: Constipation Last Admin: 02/22/19 08:07 Dose: 100 mg Enoxaparin Sodium (Lovenox) 40 mg SC DAILY [facility]; Protocol Last Admin: 02/26/19 08:43 Dose: 40 mg Fluticasone Propionate (Flonase) 2 spr BENJAMIN DAILY [facility] Last Admin: 02/26/19 08:42 Dose: 2 spr Hydrochlorothiazide (Microzide) 12.5 mg PO DAILY [facility] Last Admin: 02/26/19 08:43 Dose: 12.5 mg Lisinopril (Zestril) 20 mg PO DAILY [facility] Last Admin: 02/26/19 08:42 Dose: 20 mg Methylprednisolone (Medrol) 4 mg PO DAILY [facility] Last Admin: 02/26/19 08:46 Dose: 4 mg Multivitamins/Minerals (Therapeutic-M Tab) 1 tab PO DAILY [facility] Last Admin: 02/26/19 08:43 Dose: 1 tab Pantoprazole Sodium (Protonix Ec Tab) 40 mg PO DAILY [facility] Last Admin: 04/19/19 08:43 Dose: 40 mg Tiotropium [place] (Spiriva) 18 mcg IH DAILY [facility] Last Admin: 02/26/19 08:43 Dose: 18 mcg - Labs Labs: 02/23/19 04:20 02/23/19 04:20 Assessment and Plan (1) Multifocal pneumonia Status: Acute (2) COPD (chronic obstructive pulmonary disease) Status: Chronic (3) Hypoxemia requiring supplemental oxygen Status: Chronic
--- NOTE | 2019-02-26 12:14 | CP.PCM.DIS ---
Provider - Provider Date of Admission: 02/19/19 14:12 Attending physician: Cookie Girard DO Consults: 02/19/19 15:14 Pulmonology Consult Routine Comment: Consulting Provider: Fei Matos Consulting Physician: Fei Matos Reason for Consult: pneumonia 02/19/19 15:21 Case Management Referral Routine Comment: Physician Instructions: Reason For Exam: Reason for Referral: Discharge Planning Time Spent in preparation of Discharge (in minutes): 25 Diagnosis - Discharge Diagnosis (1) Multifocal pneumonia Status: Acute Priority: High Comment: completed 10 day course of IV Vanco and Zosyn. continue 10 days of Cefdinir (2) COPD (chronic obstructive pulmonary disease) Status: Chronic Priority: High Comment: continue Spiriva, Advair and Medrol. follow up with Dr Matos (3) HTN (hypertension) Status: Chronic Comment: BP stable. continue Cardizem and Lisinopril/HCTZ Hospital Course - Lab Results Lab Results: Most Recent Lab Values WBC 10.2 K/uL (4.8-10.8) 02/23/19 04:20 RBC 4.14 Mil/uL (4.40-5.90) L 02/23/19 04:20 Hgb 13.5 g/dL (12.0-18.0) 02/23/19 04:20 Hct 40.2 % (35.0-51.0) 02/23/19 04:20 MCV 97.1 fl (80.0-94.0) H 02/23/19 04:20 MCH 32.6 pg (27.0-31.0) H 02/23/19 04:20 MCHC 33.6 g/dL (33.0-37.0) 02/23/19 04:20 RDW 13.4 % (11.5-14.5) 02/23/19 04:20 Plt Count 374 K/uL (130-400) 02/23/19 04:20 MPV 8.1 fl (7.2-11.7) 02/20/19 05:55 Neut % (Auto) 81.1 % (50.0-75.0) H 02/20/19 05:55 Lymph % (Auto) 12.7 % (20.0-40.0) L 02/20/19 05:55 Towns % (Auto) 3.9 % (0.0-10.0) 02/20/19 05:55 Eos % (Auto) 1.4 % (0.0-4.0) 02/20/19 05:55 Baso % (Auto) 0.9 % (0.0-2.0) 02/20/19 05:55 Neut # (Auto) 10.3 K/uL (1.8-7.0) H 02/20/19 05:55 Lymph # (Auto) 1.6 K/uL (1.0-4.3) 02/20/19 05:55 Towns # (Auto) 0.5 K/uL (0.0-0.8) 02/20/19 05:55 Eos # (Auto) 0.2 K/uL (0.0-0.7) 02/20/19 05:55 Baso # (Auto) 0.1 K/uL (0.0-0.2) 02/20/19 05:55 Sodium 138 mmol/l (132-148) 02/23/19 04:20 Potassium 3.7 MMOL/L (3.6-5.0) 02/23/19 04:20 Chloride 100 mmol/L (98-107) 02/23/19 04:20 Carbon Dioxide 32 mmol/L (22-30) H 02/23/19 04:20 Anion Gap 10 (10-20) 02/23/19 04:20 BUN 22 mg/dl (9-20) H 02/23/19 04:20 Creatinine 1.1 mg/dl (0.8-1.5) 02/23/19 04:20 Est GFR ( Amer) > 60 02/23/19 04:20 Est GFR (Non-Af Amer) > 60 02/23/19 04:20 POC Glucose (mg/dL) 235 mg/dL (65-110) H 02/26/19 10:42 Random Glucose 118 mg/dL (75-110) H 02/23/19 04:20 Calcium 8.9 mg/dL (8.4-10.2) 02/23/19 04:20 - Hospital Course Hospital Course: 73 yo male with history of HTN and COPD admitted because of multifocal pneumonia. He was transferred to TCU for continuation of IV antibiotics and therapy. Patient did well and now is ready for discharge. Discharge Exam - Head Exam Head Exam: ATRAUMATIC, NORMAL INSPECTION, NORMOCEPHALIC - Eye Exam Eye Exam: absent: Scleral icterus - ENT Exam ENT Exam: Mucous Membranes Moist - Respiratory Exam Respiratory Exam: absent: Rales, Rhonchi, Wheezes, Respiratory Distress - Cardiovascular Exam Cardiovascular Exam: REGULAR RHYTHM, +S1, +S2 - GI/Abdominal Exam GI & Abdominal Exam: Soft. absent: Tenderness - Rectal Exam Rectal Exam: Deferred - Neurological Exam Neurological exam: Alert, Oriented x3 - Psychiatric Exam Psychiatric exam: Normal Affect - Skin Skin Exam: Dry, Intact Discharge Plan - Discharge Medications Prescriptions: Cefdinir [Omnicef] 300 mg PO BID 10 Days #20 cap - Follow Up Plan Condition: GOOD Disposition: HOME/ ROUTINE
== END 2019-02-26 11:45 | disposition home or self-care (01) | DRG 871 ==
LOC: H.TCU 14:12
PROVIDERS: ADMIT Student in an Organized Health Care Education/Training Program; ATTEND Student in an Organized Health Care Education/Training Program
DX: A41.9 Sepsis, unspecified organism (principal); J18.9 Pneumonia, unspecified organism; J44.0 Chronic obstructive pulmonary disease with (acute) lower respiratory infection; J44.1 Chronic obstructive pulmonary disease with (acute) exacerbation; I10 Essential (primary) hypertension; R09.02 Hypoxemia; R65.20 Severe sepsis without septic shock; Z87.01 Personal history of pneumonia (recurrent); Z87.891 Personal history of nicotine dependence; D72.829 Elevated white blood cell count, unspecified; K02.9 Dental caries, unspecified